=== PATIENT | female | born 1970 ===

== ENCOUNTER 2020-07-28 15:40 | Outpatient (REF) | payer OTHER, SELFPAY | END 2020-07-28 15:41 | disposition home or self-care (01) | LOC: HO.LAB 15:40 | PROVIDERS: PCP Internal Medicine; Visit Provider Internal Medicine | DX: Z20.828 Contact with and (suspected) exposure to other viral communicable diseases (principal) | CPT/HCPCS: 87635 ==

== ENCOUNTER → 2020-08-01 14:07 | Outpatient (BNVA) | payer OTHER, SELFPAY | PROVIDERS: Visit Provider Internal Medicine | DX: B20 Human immunodeficiency virus [HIV] disease (principal) | CPT/HCPCS: 99212 ==

== ENCOUNTER 2020-09-14 16:14 | Outpatient (REF) | payer OTHER, SELFPAY ==
[2020-09-15 17:38] LABS: Absolute CD3 Count 1612 cells/uL (840-3060); Absolute CD4 Count 400 cells/uL (490-1740); Absolute CD8 Count 1214 cells/uL (180-1170); Absolute Lymphocytes 2547 cells/uL (850-3900); CD4 CD8 Ratio 0.33 (0.86-5.00); Percent CD3 Cells 63 % (57-85); Percent CD4 Cells 16 % (30-61); Percent CD8 Cells 48 % (12-42)
[2020-09-18 11:53] LABS: HIV RNA PCR Qn Copies 30 copies/mL (NOT DETECTED); HIV RNA PCR Qn Log Copies 1.48 (NOT DETECTED)
== END 2020-09-14 16:15 | disposition home or self-care (01) ==
LOC: HO.LAB 16:14
PROVIDERS: PCP Internal Medicine; Visit Provider Internal Medicine
DX: B20 Human immunodeficiency virus [HIV] disease (principal)
CPT/HCPCS: 36415; 86359; 86360; 87536

== ENCOUNTER → 2020-09-19 12:12 | Outpatient (BNVA) | payer OTHER, SELFPAY | PROVIDERS: Visit Provider Internal Medicine | DX: Z76.89 Persons encountering health services in other specified circumstances (principal) ==

== ENCOUNTER 2021-02-10 10:27 | Outpatient (REF) | payer OTHER, SELFPAY ==
[2021-02-10 11:11] LABS: MANUAL DIFF FLAG NO
[2021-02-10 11:26] LABS: Basophils Absolute Auto 0.1 X10*3/uL (0.0-0.2); Basophils Percent Auto 0.9 % (0-2); Eosinophils Absolute Auto 0.2 X10*3/uL (0.0-0.4); Eosinophils Percent Auto 2.5 % (0-4); Hematocrit 39.2 % (37-47); Imm Gran Abs Auto 0.01 X10*3/uL (0.00-0.03); Imm Gran Pct Auto 0.1 % (0.0-0.4); Lymphocytes Absolute Auto 1.8 X10*3/uL (1.2-4.9); Lymphocytes Percent Auto 23.3 % (20-40); Mean Corpuscular HGB Conc 33.2 g/dl (31.0-35.0); Mean Corpuscular Volume 90.5 fL (80-98); Mean Platelet Volume 10.1 fL (9.4-12.3); Monocytes Absolute Auto 0.6 X10*3/uL (0.1-1.2); Monocytes Percent Auto 7.3 % (2-11); Neutrophils Absolute Auto 5.2 X10*3/uL (2.0-8.3); Neutrophils Percent Auto 65.9 % (45-73); Platelet Count 302 X10*3/uL (160-400); Red Blood Count 4.33 X10*6/uL (4.20-5.50); Red Cell Distribution Width 13.1 % (11.0-16.0); White Blood Count 7.9 X10*3/uL (4.8-10.8)
[2021-02-10 11:55] LABS: Alanine Aminotransferase 15 U/L (0-31); Albumin Level 4.1 g/dL (3.5-5.0); Alkaline Phosphatase 44 U/L (39-117); Anion Gap 11 (12-20); Aspartate Amino Transferase 17 U/L (5-31); Bilirubin Total 0.3 mg/dL (0.0-1.0); Blood Urea Nitrogen 15 mg/dL (9-16); Calcium 9.4 mg/dL (8.4-10.2); Carbon Dioxide 26 mmol/L (22-29); Chloride 107 mmol/L (96-108); Cholesterol 166 mg/dL; Estimated Glomerular Filt Rate > 60; Glucose Random 99 mg/dL (60-115); HDL Cholesterol 38 mg/dL; LDL Cholesterol Calculated 115 mg/dl; Potassium 4.5 mmol/L (3.3-5.1); Sodium 139 mmol/L (135-145); Total Protein 7.4 g/dL (6.5-8.0); Triglycerides 69 mg/dL
[2021-02-10 11:56] LABS: Alanine Aminotransferase 16 U/L (0-31); Albumin Level 4.1 g/dL (3.5-5.0); Alkaline Phosphatase 44 U/L (39-117); Anion Gap 11 (12-20); Aspartate Amino Transferase 17 U/L (5-31); Bilirubin Direct < 0.2 mg/dL (0.0-0.5); Bilirubin Total 0.3 mg/dL (0.0-1.0); Blood Urea Nitrogen 15 mg/dL (9-16); Calcium 9.3 mg/dL (8.4-10.2); Carbon Dioxide 26 mmol/L (22-29); Chloride 107 mmol/L (96-108); Estimated Glomerular Filt Rate > 60; Glucose Random 99 mg/dL (60-115); Potassium 4.5 mmol/L (3.3-5.1); Sodium 139 mmol/L (135-145); Total Protein 7.3 g/dL (6.5-8.0)
[2021-02-10 11:59] LABS: Free T4 (Free Thyroxine) 0.91 ng/dL (0.71-1.85); Thyroid Stimulating Hormone 1.23 uIU/mL (0.32-4.0); Vitamin D 25-OH Total 8.6 ng/mL (>30)
[2021-02-10 12:02] LABS: ~HepC Num1 0.09 S/CO (0.00-0.79); ~Hepatitis C Antibody Nonreactive (Nonreactive)
[2021-02-10 12:06] LABS: Syphilis Screen Reactive (Nonreactive)
[2021-02-10 12:21] LABS: Vitamin B12 339 pg/mL (200-900)
[2021-02-13 12:22] LABS: Absolute CD3 Count 1096 cells/uL (840-3060); Absolute CD4 Count 307 cells/uL (490-1740); Absolute CD8 Count 805 cells/uL (180-1170); Absolute Lymphocytes 1770 cells/uL (850-3900); CD4 CD8 Ratio 0.38 (0.86-5.00); Percent CD3 Cells 62 % (57-85); Percent CD4 Cells 17 % (30-61); Percent CD8 Cells 46 % (12-42)
[2021-02-14 09:37] LABS: HIV RNA PCR Qn Copies <20 DETECTED copies/mL (NOT DETECTED); HIV RNA PCR Qn Log Copies <1.30 DETECTED (NOT DETECTED)
[2021-02-16 09:02] LABS: RPR Quantitative Non-Reactive (Nonreactive); T.Pallidum Particle Agg Test Reactive (Nonreactive)
== END 2021-02-10 10:28 | disposition home or self-care (01) ==
LOC: HO.LAB 10:27
PROVIDERS: Absent Provider Internal Medicine; PCP Internal Medicine; Visit Provider Internal Medicine
DX: Z21 Asymptomatic human immunodeficiency virus [HIV] infection status (principal); K21.9 Gastro-esophageal reflux disease without esophagitis; E78.00 Pure hypercholesterolemia, unspecified
CPT/HCPCS: 36415; 80048; 80053; 80061; 80076; 82248; 82306; 82607; 82746; 84439; 84443; 85025; 86359; 86360; 86592; 86780; 86803; 87536

== ENCOUNTER 2021-03-06 15:32 | Outpatient (REF) | payer OTHER, SELFPAY ==
[2021-03-06 16:56] LABS: MANUAL DIFF FLAG NO
[2021-03-06 17:03] LABS: Basophils Absolute Auto 0.1 X10*3/uL (0.0-0.2); Basophils Percent Auto 0.8 % (0-2); Eosinophils Absolute Auto 0.2 X10*3/uL (0.0-0.4); Eosinophils Percent Auto 3.1 % (0-4); Hematocrit 39.8 % (37-47); Hemoglobin 13.1 g/dl (12.0-16.0); Imm Gran Abs Auto 0.01 X10*3/uL (0.00-0.03); Imm Gran Pct Auto 0.2 % (0.0-0.4); Lymphocytes Absolute Auto 1.7 X10*3/uL (1.2-4.9); Lymphocytes Percent Auto 27.5 % (20-40); Mean Corpuscular HGB Conc 32.9 g/dl (31.0-35.0); Mean Corpuscular Hemoglobin 29.4 pg (27.0-33.0); Mean Corpuscular Volume 89.2 fL (80-98); Mean Platelet Volume 10.4 fL (9.4-12.3); Monocytes Absolute Auto 0.6 X10*3/uL (0.1-1.2); Neutrophils Absolute Auto 3.7 X10*3/uL (2.0-8.3); Neutrophils Percent Auto 59.4 % (45-73); Platelet Count 328 X10*3/uL (160-400); Red Blood Count 4.46 X10*6/uL (4.20-5.50); Red Cell Distribution Width 13.2 % (11.0-16.0); White Blood Count 6.2 X10*3/uL (4.8-10.8)
[2021-03-07 14:47] LABS: HIV RNA PCR Qn Copies <20 NOT DETECTED copies/mL (NOT DETECTED); HIV RNA PCR Qn Log Copies <1.30 NOT DETECTED (NOT DETECTED)
[2021-03-08 15:16] LABS: Absolute CD3 Count 1196 cells/uL (840-3060); Absolute CD4 Count 380 cells/uL (490-1740); Absolute CD8 Count 820 cells/uL (180-1170); Absolute Lymphocytes 1787 cells/uL (850-3900); CD4 CD8 Ratio 0.46 (0.86-5.00); Percent CD3 Cells 67 % (57-85); Percent CD4 Cells 21 % (30-61); Percent CD8 Cells 46 % (12-42)
== END 2021-03-06 15:33 | disposition home or self-care (01) ==
LOC: HO.LAB 15:32
PROVIDERS: PCP Internal Medicine; Visit Provider Internal Medicine
DX: Z21 Asymptomatic human immunodeficiency virus [HIV] infection status (principal); K21.9 Gastro-esophageal reflux disease without esophagitis
CPT/HCPCS: 36415; 85025; 86359; 86360; 87536

== ENCOUNTER → 2021-03-10 10:48 | Outpatient (BNVA) | payer OTHER, SELFPAY | PROVIDERS: Visit Provider Internal Medicine | DX: Z21 Asymptomatic human immunodeficiency virus [HIV] infection status (principal) | CPT/HCPCS: 99212 ==

== ENCOUNTER 2021-05-26 15:43 | Outpatient (REF) | payer OTHER, SELFPAY ==
--- NOTE | ~2021-05-26 | MM_ITS ---
EXAMINATION: MM SCREENING DIGITAL BREAST TOMOSYNTHESIS, BILATERAL CLINICAL INFORMATION: Screening. Asymptomatic. The lifetime risk of breast cancer based on the Tyrer-Cuzick Model is 7%. COMPARISON: Mammography: 03/17/2020, 10/14/2018, 09/17/2017, 07/20/2016; targeted right breast ultrasound 03/25/2020. TECHNIQUE: Digital breast tomosynthesis is performed in both the craniocaudal and mediolateral oblique views along with computer-aided detection (CAD). Synthesized 2D images are generated from the tomosynthesis. FINDINGS: There are scattered areas of fibroglandular density (ACR BI-RADS breast composition Category b). There are no significant masses, abnormal calcifications, or other abnormalities. There are scattered small benign-appearing circumscribed waxing and waning nodularity, 3 are decreased in size in the outer right breast and previously noted to represent intramammary nodes on targeted right ultrasound. There is no dominant nodule. The axilla and skin contours are unremarkable. Left breast again shows biopsy clip marker mid upper outer quadrant. MM/MM tomosynthesis screening BI IMPRESSION: No significant changes from prior studies. ASSESSMENT: BI-RADS 2: Benign RECOMMENDATION: Routine annual mammography screening. This patient's information was entered into a reminder system with a target due date for their next mammogram.
== END 2021-05-26 15:44 | disposition home or self-care (01) ==
LOC: HO.MAMMO 15:43
PROVIDERS: Visit Provider Internal Medicine
DX: Z12.31 Encounter for screening mammogram for malignant neoplasm of breast (principal)
CPT/HCPCS: 77063; 77067

== ENCOUNTER 2021-09-08 16:21 | Outpatient (REF) | payer OTHER, SELFPAY ==
--- NOTE | ~2021-09-08 | XR_ITS ---
EXAMINATION: XR CHEST CLINICAL INFORMATION: Asthma with acute exacerbation. COMPARISON: 11/13/2019 TECHNIQUE: 2 views of the chest were obtained. FINDINGS: No acute finding. No infiltrate. The lung kline are grossly clear. The cardiac silhouette is felt to be within normal limits. There is no effusion. The hilar regions are felt to be comparable. XR/XR chest 2V IMPRESSION: No acute finding.
== END 2021-09-08 16:22 | disposition home or self-care (01) ==
LOC: HO.XRAY 16:21
PROVIDERS: Visit Provider Internal Medicine
DX: J45.901 Unspecified asthma with (acute) exacerbation (principal)
CPT/HCPCS: 71046

== ENCOUNTER 2021-10-04 14:48 | Outpatient (REF) | payer OTHER, SELFPAY ==
[2021-10-04 16:19] LABS: Syphilis Screen Reactive (Nonreactive)
[2021-10-05 05:34] LABS: ~HepC Num1 0.12 S/CO (0.00-0.79); ~Hepatitis C Antibody Nonreactive (Nonreactive)
[2021-10-05 11:26] LABS: Absolute CD3 Count 1269 cells/uL (840-3060); Absolute CD4 Count 409 cells/uL (490-1740); Absolute CD8 Count 895 cells/uL (180-1170); Absolute Lymphocytes 2422 cells/uL (850-3900); CD4 CD8 Ratio 0.46 (0.86-5.00); Percent CD3 Cells 52 % (57-85); Percent CD4 Cells 17 % (30-61); Percent CD8 Cells 37 % (12-42)
[2021-10-11 07:41] LABS: HIV RNA PCR Qn Copies 25 copies/mL (NOT DETECTED)
[2021-10-12 11:57] LABS: T.Pallidum Particle Agg Test Reactive (Nonreactive)
[2021-12-13 10:00] LABS: RPR Quantitative Non-Reactive (Nonreactive)
== END 2021-10-04 14:49 | disposition home or self-care (01) ==
LOC: HO.LAB 14:48
PROVIDERS: PCP Internal Medicine; Visit Provider Internal Medicine
DX: Z21 Asymptomatic human immunodeficiency virus [HIV] infection status (principal); A53.9 Syphilis, unspecified
CPT/HCPCS: 36415; 86359; 86360; 86592; 86780; 86803; 87536

== ENCOUNTER → 2021-10-27 11:42 | Outpatient (BNVA) | payer OTHER, SELFPAY | PROVIDERS: Visit Provider Internal Medicine | DX: Z21 Asymptomatic human immunodeficiency virus [HIV] infection status (principal) | CPT/HCPCS: 99212 ==

== ENCOUNTER → 2021-12-26 13:34 | Outpatient (BNVA) | payer OTHER, SELFPAY | PROVIDERS: Visit Provider Obstetrics & Gynecology | DX: Z13.89 Encounter for screening for other disorder (principal) ==

== ENCOUNTER 2022-05-01 08:17 | Outpatient (REF) | payer OTHER, SELFPAY ==
[2022-05-02 13:16] LABS: HIV RNA PCR Qn Copies <20 DETECTED copies/mL (NOT DETECTED); HIV RNA PCR Qn Log Copies <1.30 DETECTED (NOT DETECTED)
[2022-05-02 15:42] LABS: Absolute CD3 Count 1102 cells/uL (840-3060); Absolute CD4 Count 427 cells/uL (490-1740); Absolute CD8 Count 697 cells/uL (180-1170); Absolute Lymphocytes 1827 cells/uL (850-3900); CD4 CD8 Ratio 0.61 (0.86-5.00); Percent CD3 Cells 60 % (57-85); Percent CD4 Cells 23 % (30-61); Percent CD8 Cells 38 % (12-42)
== END 2022-05-01 08:18 | disposition home or self-care (01) ==
LOC: HO.LAB 08:17
PROVIDERS: PCP Internal Medicine; Visit Provider Internal Medicine
DX: B20 Human immunodeficiency virus [HIV] disease (principal)
CPT/HCPCS: 36415; 86359; 86360; 87536

== ENCOUNTER 2022-05-28 13:32 | Outpatient (REF) | payer OTHER, SELFPAY ==
--- NOTE | ~2022-05-28 | MM_ITS ---
EXAMINATION: MM SCREENING DIGITAL BREAST TOMOSYNTHESIS, BILATERAL CLINICAL INFORMATION: Screening. Asymptomatic. The lifetime risk of breast cancer based on the Tyrer-Cuzick Model is 7%. COMPARISON: Mammography: 05/26/2021, 03/17/2020, 10/14/2018, ultrasound right breast 03/25/2020. TECHNIQUE: Digital breast tomosynthesis is performed in both the craniocaudal and mediolateral oblique views along with computer-aided detection (CAD). Synthesized 2D images are generated from the tomosynthesis. FINDINGS: There are scattered areas of fibroglandular density (ACR BI-RADS breast composition Category b). There is no significant mass, architectural abnormality, or abnormal calcifications. Scattered minor smooth nodularity is again noted, several on right related to intramammary nodes on ultrasound. There is a biopsy clip marker again seen left breast mid upper outer quadrant. The axilla and skin contours are unremarkable. There are no significant changes. MM/MM tomosynthesis screening BI IMPRESSION: No significant changes from prior exams. ASSESSMENT: BI-RADS 2: Benign RECOMMENDATION: Routine annual mammography screening. This patient's information was entered into a reminder system with a target due date for their next mammogram.
== END 2022-05-28 13:33 | disposition home or self-care (01) ==
LOC: HO.MAMMO 13:32
PROVIDERS: PCP Internal Medicine; Visit Provider Obstetrics & Gynecology
DX: Z12.31 Encounter for screening mammogram for malignant neoplasm of breast (principal)
CPT/HCPCS: 77063; 77067

== ENCOUNTER → 2022-07-16 14:52 | Outpatient (BNVA) | payer OTHER, SELFPAY | PROVIDERS: PCP Internal Medicine; Visit Provider Physician Assistant | DX: Z01.818 Encounter for other preprocedural examination (principal); J45.909 Unspecified asthma, uncomplicated; K21.9 Gastro-esophageal reflux disease without esophagitis | CPT/HCPCS: 99202 ==

== ENCOUNTER 2022-10-12 14:35 | Outpatient (REF) | payer OTHER, SELFPAY ==
[2022-10-15 04:41] LABS: ~HepC Num1 0.11 S/CO (0.00-0.79); ~Hepatitis C Antibody Nonreactive (Nonreactive)
[2022-10-15 04:49] LABS: Syphilis Screen Reactive (Nonreactive)
[2022-10-15 11:38] LABS: Absolute CD3 Count 1381 cells/uL (840-3060); Absolute CD4 Count 578 cells/uL (490-1740); Absolute CD8 Count 847 cells/uL (180-1170); Absolute Lymphocytes 2118 cells/uL (850-3900); CD4 CD8 Ratio 0.68 (0.86-5.00); Percent CD3 Cells 65 % (57-85); Percent CD4 Cells 27 % (30-61); Percent CD8 Cells 40 % (12-42)
[2022-10-17 14:13] LABS: HIV RNA PCR Qn Copies <20 DETECTED copies/mL (NOT DETECTED); HIV RNA PCR Qn Log Copies <1.30 DETECTED (NOT DETECTED)
[2022-10-21 14:44] LABS: RPR Quantitative Non-Reactive (Nonreactive); T.Pallidum Particle Agg Test Reactive (Nonreactive)
== END 2022-10-12 14:36 | disposition home or self-care (01) ==
LOC: HO.LAB 14:35
PROVIDERS: PCP Internal Medicine; Visit Provider Internal Medicine
DX: B20 Human immunodeficiency virus [HIV] disease (principal)
CPT/HCPCS: 36415; 86359; 86360; 86592; 86780; 86803; 87536

== ENCOUNTER → 2022-10-19 11:41 | Outpatient (BNVA) | payer OTHER, SELFPAY | PROVIDERS: PCP Internal Medicine; Visit Provider Internal Medicine | DX: Z21 Asymptomatic human immunodeficiency virus [HIV] infection status (principal); Z79.899 Other long term (current) drug therapy | CPT/HCPCS: 99212 ==

== ENCOUNTER 2023-04-24 09:17 | Outpatient (REF) | payer OTHER, SELFPAY ==
[2023-04-24 09:37] LABS: MANUAL DIFF FLAG NO
[2023-04-24 10:20] LABS: Basophils Absolute Auto 0.1 X10*3/uL (0.0-0.2); Basophils Percent Auto 1.2 % (0-2); Eosinophils Absolute Auto 0.1 X10*3/uL (0.0-0.4); Hematocrit 40.6 % (37.0-47.0); Hemoglobin 13.5 g/dl (12.0-16.0); Imm Gran Abs Auto 0.02 X10*3/uL (0.00-0.03); Imm Gran Pct Auto 0.3 % (0.0-0.4); Lymphocytes Absolute Auto 2.3 X10*3/uL (1.2-4.9); Lymphocytes Percent Auto 34.3 % (20-40); Mean Corpuscular HGB Conc 33.3 g/dl (31.0-35.0); Mean Corpuscular Hemoglobin 30.3 pg (27.0-33.0); Monocytes Absolute Auto 0.6 X10*3/uL (0.1-1.2); Monocytes Percent Auto 8.6 % (2-11); Neutrophils Absolute Auto 3.5 x10*3/uL (2.0-8.3); Neutrophils Percent Auto 53.6 % (45-73); Platelet Count 310 X10*3/uL (160-400); Red Blood Count 4.46 X10*6/uL (4.20-5.50); Red Cell Distribution Width 13.1 % (11.0-16.0); White Blood Count 6.6 X10*3/uL (4.8-10.8)
[2023-04-24 11:25] LABS: Syphilis Screen Reactive (Nonreactive)
[2023-04-24 11:28] LABS: Alanine Aminotransferase 15 U/L (0-31); Albumin Level 3.9 g/dL (3.5-5.0); Alkaline Phosphatase 48 U/L (39-117); Anion Gap 9 (12-20); Aspartate Amino Transferase 17 U/L (5-31); Bilirubin Direct 0.1 mg/dL (0.0-0.5); Bilirubin Total 0.4 mg/dL (0.0-1.0); Blood Urea Nitrogen 12 mg/dL (9-16); Carbon Dioxide 26 mmol/L (22-29); Chloride 108 mmol/L (96-108); Estimated Glomerular Filt Rate > 60; Glucose Random 97 mg/dL (60-115); Potassium 4.1 mmol/L (3.3-5.1); Sodium 139 mmol/L (135-145); Total Protein 7.1 g/dL (6.5-8.0)
[2023-04-26 10:44] LABS: Absolute CD3 Count 1380 cells/uL (840-3060); Absolute CD4 Count 565 cells/uL (490-1740); Absolute CD8 Count 839 cells/uL (180-1170); Absolute Lymphocytes 2300 cells/uL (850-3900); CD4 CD8 Ratio 0.67 (0.86-5.00); Percent CD3 Cells 60 % (57-85); Percent CD4 Cells 25 % (30-61); Percent CD8 Cells 36 % (12-42)
[2023-04-26 16:33] LABS: HIV RNA PCR Qn Copies 23 copies/mL (NOT DETECTED); HIV RNA PCR Qn Log Copies 1.36 (NOT DETECTED)
[2023-05-06 10:58] LABS: RPR Quantitative Non-Reactive (Nonreactive); T.Pallidum Particle Agg Test Non-Reactive (Nonreactive)
== END 2023-04-24 09:18 | disposition home or self-care (01) ==
LOC: HO.LAB 09:17
PROVIDERS: PCP Internal Medicine; Visit Provider Internal Medicine
DX: B20 Human immunodeficiency virus [HIV] disease (principal)
CPT/HCPCS: 36415; 80048; 80076; 85025; 86359; 86360; 86592; 86780; 87536

== ENCOUNTER 2023-05-13 11:37 | Outpatient (AMB) | payer OTHER, SELFPAY ==
[2023-05-13 11:51] VITALS: BP 110/70; PULSE 80; BMI 34.7
--- NOTE | 2023-05-13 11:51 | A.OFFVIS_ITS ---
Intake Vital Signs 05/13/23 11:51 Height 5 ft 3 in Weight 196 lb BMI 34.7 BP 110/70 Pulse 80 Pulse Source Pulse Oximeter Intake Visit Reasons: follow up HIV labs Groundwater Monitoring Technician Required: Yes Groundwater Monitoring Technician Name: Mary Grimes CMA Allergies No Known Allergies Allergy (Verified 05/13/23 11:52) HPI follow up HIV labs HPI Details She is doing well. She has CD4 count of 565 and viral load 23. She has no complaints. [facility] Medical History Anxiety and depression Asthma Atypical ductal hyperplasia, breast GENNA I (cervical intraepithelial neoplasia I) GERD (gastroesophageal reflux disease) HIV (human immunodeficiency virus infection) Insomnia Migraine Obesity (BMI 30-39.9) Overweight (BMI 25.0-29.9) Tobacco abuse Surgical History H/O LEEP History of breast lump/mass excision History of breast surgery History of laparoscopic cholecystectomy History of tubal ligation History of umbilical hernia repair Family History Father No problems noted. Mother No problems noted. Paternal Grandmother CVD (cardiovascular disease) Maternal Uncle Mouth cancer Maternal Grandmother Myocardial infarction CVD (cardiovascular disease) Gastric cancer Social History Housing: Apartment Alcohol intake: current Alcohol intake frequency: 3 or more drinks per day Alcohol type: beer, wine and hard liquor Patient Tobacco Use Status: Current everyday Tobacco user Tobacco use type: Cigarette Cigarettes Per Day: 10 e-Cigarette/Vaping Use: Never Used Second Hand Smoke Exposure: Yes service: No Current occupational status: unemployed Cognitive needs: No Hearing needs: No Vision needs: Yes Female Reproductive History Menstrual Age of Menarche: 13 Review of Systems Const All systems reviewed & are unremarkable except as noted in HPI and below Physical Exam Vital Signs: Last Vital Signs Pulse 80 05/13/23 11:51 BP 110/70 05/13/23 11:51 BMI result Body Mass Index 34.7 Const General: cooperative Orientation/consciousness: patient oriented x3 HEENT Head: Yes normal to inspection Mouth: Normal oral and palatal mucosa present Eyes General: appearance normal, both eyes and all related structures Pupils: Equal, round and reactive pupils present Resp Effort & Inspection: normal respiratory effort Cardio Rate: regular rate Rhythm: regular rhythm GI Palpation (GI): Soft to palpation and nontender General: Yes no CVA tenderness Back/Spine/Pelvis Back: no CVA tenderness Skin General skin exam: no rashes or lesions noted Neuro General: patient oriented x3 Cranial nerves: Yes CN's II-XII intact bilaterally and Yes Equal, round and reactive pupils present Extrem General: Yes normal to inspection Psych Appearance: grossly normal Assessment & Plan Assessment & Plan (1) HIV (human immunodeficiency virus infection): Comment: She has been doing well She has no complaints She is taking Biktarvy and is up to date with health care she says Her CD4 count and viral load are appropriate Code(s): B20 - Human immunodeficiency virus [HIV] disease Qualifiers: HIV symptom status: asymptomatic, with no history of HIV-related illness Qualified Code(s): Z21 - Asymptomatic human immunodeficiency virus [HIV] infection status Plan Check CD4 count and viral load and see in six months Orders: Orders HIV-1 RNA QN PCR Expanded 6 Weeks B20 - Human immunodeficiency virus [HIV] disease Medications: Changed From xhvylhmss-akkzhhpe-abkdqcq ala 50-200-25 mg (Biktarvy) 1 tab PO DAILY 90 days 90 tabs 3RF To qrkvkyxvb-wcrnnhla-ozvvdso ala 50-200-25 mg (Biktarvy) 1 tab PO DAILY 30 tabs 5RF 30 days Coding Level of Care Code Est Pt Level 3 (51559) Diagnoses HIV (human immunodeficiency virus infection) Z21 HIV symptom status: asymptomatic, with no history of HIV-related illness
== END 2023-05-13 12:26 | disposition home or self-care (01) ==
LOC: HO.HID 11:37
PROVIDERS: PCP Internal Medicine; Visit Provider Internal Medicine
DX: Z21 Asymptomatic human immunodeficiency virus [HIV] infection status (principal)
CPT/HCPCS: 99213

== ENCOUNTER → 2023-05-13 11:37 | Outpatient (BNVA) | payer OTHER, SELFPAY | PROVIDERS: PCP Internal Medicine; Visit Provider Internal Medicine | DX: B20 Human immunodeficiency virus [HIV] disease (principal) | CPT/HCPCS: 99212 ==

== ENCOUNTER 2023-05-30 13:14 | Outpatient (REF) | payer OTHER, SELFPAY ==
--- NOTE | ~2023-05-30 | MM_ITS ---
EXAMINATION: MM SCREENING DIGITAL BREAST TOMOSYNTHESIS, BILATERAL CLINICAL INFORMATION: Screening. Asymptomatic. COMPARISON: Mammography: This study is compared with prior exams dating back to 2017. TECHNIQUE: Digital breast tomosynthesis is performed in both the craniocaudal and mediolateral oblique views along with computer-aided detection (CAD). Synthesized 2D images are generated from the tomosynthesis. FINDINGS: There are scattered areas of fibroglandular density (ACR BI-RADS breast composition Category b). There are no significant masses, abnormal calcifications, or other abnormalities. There is a tissue marker in the superior aspect of the left breast from prior benign percutaneous biopsy. It lies in proximity to few, benign calcifications. MM/MM tomosynthesis screening BI IMPRESSION: No mammographic evidence of malignancy. ASSESSMENT: BI-RADS BI-RADS 2 - Benign Findings RECOMMENDATION: Routine annual mammography screening. 1 year F/U This examination should not preclude the clinical evaluation of a suspicious palpable abnormality. This patient's information was entered into a reminder system with a target due date for their next mammogram.
== END 2023-05-30 13:15 | disposition home or self-care (01) ==
LOC: HO.MAMMO 13:14
PROVIDERS: PCP Internal Medicine; Visit Provider Internal Medicine
DX: Z12.31 Encounter for screening mammogram for malignant neoplasm of breast (principal)
CPT/HCPCS: 77063; 77067

== ENCOUNTER → 2023-05-30 13:30 | Outpatient (BNV) | payer OTHER, SELFPAY | PROVIDERS: PCP Internal Medicine; Visit Provider Radiology Diagnostic Radiology | DX: Z12.31 Encounter for screening mammogram for malignant neoplasm of breast (principal) | CPT/HCPCS: 77063; 77067 ==

== ENCOUNTER 2023-06-04 11:24 | Outpatient (AMB) | payer OTHER, SELFPAY ==
--- NOTE | 2023-06-04 11:31 | A.OFFVIS_ITS ---
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 No complaints. Last Pap/HPV was negative in 10/17 Last Mammogram was in 05/30/23, results are still pending No previous screening Colonoscopy done, the patient was referred last year was seen for a consult and is in the process of scheduling her colonoscopy [facility] Medical History Anxiety and depression Asthma Atypical ductal hyperplasia, breast GENNA I (cervical intraepithelial neoplasia I) GERD (gastroesophageal reflux disease) HIV (human immunodeficiency virus infection) Insomnia Migraine Obesity (BMI 30-39.9) Overweight (BMI 25.0-29.9) Tobacco abuse Surgical History H/O LEEP History of breast lump/mass excision History of breast surgery History of laparoscopic cholecystectomy History of tubal ligation History of umbilical hernia repair Family History Father No problems noted. Mother No problems noted. Paternal Grandmother CVD (cardiovascular disease) Maternal Uncle Mouth cancer Maternal Grandmother Myocardial infarction CVD (cardiovascular disease) Gastric cancer Social History Housing: Apartment Alcohol intake: current Alcohol intake frequency: 3 or more drinks per day Alcohol type: beer, wine and hard liquor Patient Tobacco Use Status: Current everyday Tobacco user Tobacco use type: Cigarette Cigarettes Per Day: 10 e-Cigarette/Vaping Use: Never Used Second Hand Smoke Exposure: Yes service: No Current occupational status: unemployed Sexually active: Yes Sexual orientation: Straight/Heterosexual Gender identity: Female Cognitive needs: No Hearing needs: No Vision needs: Yes Female Reproductive History Menstrual Age of Menarche: 13 control method: permanent sterilization Total pregnancies: 4 Full term: 3 Number of Living Children: 3 Ab spontaneous: 1 Date of last pap smear: 10/15/17 Date of Mammogram: 05/30/23 Review of Systems Const All systems reviewed & are unremarkable except as noted in HPI and below Card Reports as per HPI Resp Reports as per HPI GI Reports as per HPI and Reports no additional complaints Reports as per HPI Physical Exam Vital Signs: Last Vital Signs BP 116/70 06/04/23 11:34 BMI result Body Mass Index 33.7 Const General: cooperative, healthy appearing and comfortable Chest Chest palpation & inspection: normal inspection of the chest and normal palpation of entire chest wall Breast/axilla inspection: normal inspection of the breasts and normal inspection of the axillae Breast/axilla palpation: normal palpation of the breasts, normal palpation of the axillae and no axillary lymphadenopathy Resp Effort & Inspection: normal respiratory effort Auscultation: clear to auscultation bilaterally Percussion: percussion normal Cardio Palpation: normal PMI Rate: regular rate Rhythm: regular rhythm Heart sounds: no murmurs and no rubs Peripheral pulses: Peripheral pulses 2+ throughout GI Inspection: Yes normal to inspection Palpation (GI): Soft to palpation, nontender, no guarding, not rigid and No hepatosplenomegaly present Percussion: Yes normal to percussion Auscultation: normal bowel sounds Rectal Exam - Female: deferred General: Yes bladder normal to palpation External Female Exam: No lesion Speculum Exam - Vagina: normal appearance of the vagina, normal palpation, normal vaginal discharge and not erythematous Speculum Exam - Cervix: normal appearance of the cervix and normal palpation Bimanual exam- vagina & uterus: normal bimanual exam, normal palpation, uterine size normal, bladder normal to palpation, consistency normal and normal palpation Bimanual Exam- Adnexa, other: normal adnexae, no masses and no tenderness Assessment & Plan Assessment & Plan (1) Well woman exam: Code(s): Z01.419 - Encounter for gynecological examination (general) (routine) without abnormal findings Plan: Co testing done. Counseled the patient about the recommended dietary allowance of 1200 mg of Calcium & 600 IU of vitamin D. Instructions given the patient to schedule next screening mammogram in 05/23 , the patient was referred to GI and is in the process of scheduling screening colonoscopy . The patient was instructed to perform monthly self-breast exams and schedule annual exam in a year; all questions answered and the patient verbalized understanding. Coding Level of Care Code Est Pt Prev Care 40-64y(91821) Diagnoses Well woman exam Z01.419
[2023-06-04 11:34] VITALS: BP 116/70; BMI 33.7
== END 2023-06-04 12:14 | disposition home or self-care (01) ==
PROVIDERS: Visit Provider Obstetrics & Gynecology
DX: Z01.419 Encounter for gynecological examination (general) (routine) without abnormal findings (principal)
CPT/HCPCS: 99396

== ENCOUNTER 2023-06-04 11:24 | Outpatient (REF) | payer OTHER, SELFPAY ==
[2023-06-08 12:49] LABS: HPV mRNA E6/E7 rflx Not Detected (Not Detected)
== END 2023-06-04 11:25 | disposition home or self-care (01) ==
LOC: HO.LNP 11:24
PROVIDERS: Visit Provider Obstetrics & Gynecology
DX: Z01.419 Encounter for gynecological examination (general) (routine) without abnormal findings (principal); Z11.51 Encounter for screening for human papillomavirus (HPV)
CPT/HCPCS: 87624; 88142

== ENCOUNTER 2023-06-26 08:11 | Outpatient (REF) | payer OTHER, SELFPAY ==
[2023-06-27 15:43] LABS: HIV RNA PCR Qn Copies <20 DETECTED copies/mL (NOT DETECTED); HIV RNA PCR Qn Log Copies <1.30 DETECTED (NOT DETECTED)
== END 2023-06-26 08:12 | disposition home or self-care (01) ==
LOC: HO.LAB 08:11
PROVIDERS: PCP Internal Medicine; Visit Provider Internal Medicine
DX: B20 Human immunodeficiency virus [HIV] disease (principal)
CPT/HCPCS: 36415; 87536

== ENCOUNTER 2023-07-05 11:50 | Outpatient (AMB) | payer OTHER, SELFPAY ==
[2023-07-05 11:48] VITALS: BP 125/87; PULSE 96; O2SAT 98; BMI 35.1
--- NOTE | 2023-07-05 11:48 | MHC.OFFVIS ---
Intake Vital Signs 07/05/23 11:48 Height 5 ft 3 in Weight 198 lb BMI 35.1 BP 125/87 Blood Pressure Location Lt brachial Position Sitting Pulse 96 Pulse Oximetry (%) 98 Intake Visit Reasons: follow ,lab Stone Chimney Mason Required: Yes Stone Chimney Mason Name: Mary Grimes CMA Allergies No Known Allergies Allergy (Verified 07/05/23 12:20) HPI follow ,lab HPI Details Her CD4 count is 565 and viral load undetectable on 04/24. She has no concerns. She reports UTD with HCM. [facility] Medical History Obesity (BMI 30-39.9) GENNA I (cervical intraepithelial neoplasia I) Overweight (BMI 25.0-29.9) Tobacco abuse Insomnia GERD (gastroesophageal reflux disease) Anxiety and depression Atypical ductal hyperplasia, breast Asthma Migraine HIV (human immunodeficiency virus infection) Surgical History History of laparoscopic cholecystectomy History of breast lump/mass excision History of breast surgery H/O LEEP History of tubal ligation History of umbilical hernia repair Family History Father No problems noted. Mother No problems noted. Paternal Grandmother CVD (cardiovascular disease) Maternal Uncle Mouth cancer Maternal Grandmother Myocardial infarction CVD (cardiovascular disease) Gastric cancer Social History Housing: Apartment Alcohol intake: current Alcohol intake frequency: 3 or more drinks per day Alcohol type: beer, wine and hard liquor Patient Tobacco Use Status: Current everyday Tobacco user Tobacco use type: Cigarette Cigarettes Per Day: 10 e-Cigarette/Vaping Use: Never Used Second Hand Smoke Exposure: Yes service: No Current occupational status: unemployed Sexual orientation: Straight/Heterosexual Gender identity: Female Cognitive needs: No Hearing needs: No Vision needs: Yes Female Reproductive History Menstrual Age of Menarche: 13 Review of Systems Const All systems reviewed & are unremarkable except as noted in HPI and below Physical Exam Vital Signs: Last Vital Signs Pulse 96 07/05/23 11:48 BP 125/87 07/05/23 11:48 Pulse Ox 98 07/05/23 11:48 BMI result Body Mass Index 35.1 Const General: cooperative Orientation/consciousness: patient oriented x3 HEENT Head: Yes normal to inspection Mouth: Normal oral and palatal mucosa present Eyes General: appearance normal, both eyes and all related structures Pupils: Equal, round and reactive pupils present Resp Effort & Inspection: normal respiratory effort Cardio Rate: regular rate Rhythm: regular rhythm GI Palpation (GI): Soft to palpation and nontender General: Yes no CVA tenderness Back/Spine/Pelvis Back: no CVA tenderness Skin General skin exam: no rashes or lesions noted Neuro General: patient oriented x3 Cranial nerves: Yes CN's II-XII intact bilaterally and Yes Equal, round and reactive pupils present Extrem General: Yes normal to inspection Psych Appearance: grossly normal Assessment & Plan Assessment & Plan (1) HIV (human immunodeficiency virus infection): Comment: She has been doing well She has no complaints She is taking Biktarvy and is up to date with health care she says Her CD4 count and viral load are appropriate Code(s): B20 - Human immunodeficiency virus [HIV] disease Qualifiers: HIV symptom status: asymptomatic, with no history of HIV-related illness Qualified Code(s): Z21 - Asymptomatic human immunodeficiency virus [HIV] infection status Plan See in six months Check labs before. I ordered labs today for six months and six month refill Biktarvy ordered today. Orders: Orders Liver Panel 6 Months B20 - Human immunodeficiency virus [HIV] disease HIV-1 RNA QN PCR Expanded 6 Months B20 - Human immunodeficiency virus [HIV] disease, R09.81 - Nasal congestion Complete Blood Count Auto Diff Today B20 - Human immunodeficiency virus [HIV] disease Basic Metabolic Panel 6 Months B20 - Human immunodeficiency virus [HIV] disease Lymphocyte Subset Panel 3 6 Months B20 - Human immunodeficiency virus [HIV] disease Syphilis Screen 6 Months B20 - Human immunodeficiency virus [HIV] disease Medications: Refilled nmdlvoagd-phmqrlwe-kyxkjkv ala 50-200-25 mg (Biktarvy) 1 tab PO DAILY 30 tabs 5RF 30 days Coding Level of Care Code Est Pt Level 3 (63288) Diagnoses Asymptomatic HIV infection, with no history of HIV-related illness Z21 HIV symptom status: asymptomatic, with no history of HIV-related illness
== END 2023-07-05 12:21 | disposition home or self-care (01) ==
PROVIDERS: PCP Internal Medicine; Visit Provider Internal Medicine
DX: Z21 Asymptomatic human immunodeficiency virus [HIV] infection status (principal)
CPT/HCPCS: 99213

== ENCOUNTER → 2023-07-05 11:50 | Outpatient (BNVA) | payer OTHER, SELFPAY | PROVIDERS: PCP Internal Medicine; Visit Provider Internal Medicine | DX: Z21 Asymptomatic human immunodeficiency virus [HIV] infection status (principal) | CPT/HCPCS: 99212 ==

== ENCOUNTER 2023-08-08 06:37 | Day surgery (SDC) | payer OTHER, SELFPAY ==
[2023-08-06 12:02] VITALS: BMI 35.1
--- NOTE | 2023-08-07 11:55 | HO.ANESPROP2 ---
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 (Acute) Bile salt-induced diarrhea (Acute) Facial dermatitis (Acute) Alcohol abuse (Acute) Annual physical exam (Acute) Asthma (Acute) Obesity (BMI 30-39.9) (Acute) Overweight (BMI 25.0-29.9) (Acute) Tobacco abuse (Acute) GERD (gastroesophageal reflux disease) (Acute) HIV (human immunodeficiency virus infection) (Acute) Past Medical History Medical History HIV (human immunodeficiency virus infection) Obesity (BMI 30-39.9) GENNA I (cervical intraepithelial neoplasia I) Overweight (BMI 25.0-29.9) Tobacco abuse Insomnia GERD (gastroesophageal reflux disease) Anxiety and depression Atypical ductal hyperplasia, breast Asthma Migraine Family History Family History Father No problems noted. Mother No problems noted. Paternal Grandmother CVD (cardiovascular disease) Maternal Uncle Mouth cancer Maternal Grandmother Myocardial infarction CVD (cardiovascular disease) Gastric cancer Surgical History Surgical History History of laparoscopic cholecystectomy History of breast lump/mass excision History of breast surgery H/O LEEP History of tubal ligation History of umbilical hernia repair HIV (human immunodeficiency virus infection) Social History Social History Housing: Apartment Alcohol intake: current Alcohol intake frequency: holidays/special occasions only Alcohol type: beer, wine and hard liquor Patient Tobacco Use Status: Current everyday Tobacco user Tobacco use type: Cigarette Cigarettes Per Day: 10 e-Cigarette/Vaping Use: Never Used Second Hand Smoke Exposure: Yes Are you DNR?: No Advance Directives: No Advance Directives Information Provided: Yes Nutrition Risks: No Nutritional Risk Patient : No service: No Current occupational status: unemployed Sexual orientation: Straight/Heterosexual Gender identity: Female Cognitive needs: No Hearing needs: No Vision needs: Yes Meds Allergies Allergy/AdvReac Type Severity Reaction Status Date / Time No Known Allergies Allergy Verified 07/05/23 12:20 Exam Exam Date and Time: August 07, 2023 1155 Height,Weight and Vital Signs: Height 5 ft 3 in Weight 89.811 kg Pertinent Lab Results Pertinent Lab Results: Laboratory Tests 04/24/23 09:33 WBC 6.6 Hgb 13.5 Hct 40.6 Plt Count 310 Sodium 139 Potassium 4.1 Chloride 108 Carbon Dioxide 26 BUN 12 Creatinine 0.73 Assessment and Plan Assessment Anesthesia Assessment: Chart Reviewed Documented by User: Kelsey Green MD 08/08/23 07:52 PMFSH Past Medical History Medical History HIV (human immunodeficiency virus infection) Obesity (BMI 30-39.9) GENNA I (cervical intraepithelial neoplasia I) Overweight (BMI 25.0-29.9) Tobacco abuse Insomnia GERD (gastroesophageal reflux disease) Anxiety and depression Atypical ductal hyperplasia, breast Asthma Migraine Family History Family History Father No problems noted. Mother No problems noted. Paternal Grandmother CVD (cardiovascular disease) Maternal Uncle Mouth cancer Maternal Grandmother Myocardial infarction CVD (cardiovascular disease) Gastric cancer Surgical History Surgical History History of laparoscopic cholecystectomy History of breast lump/mass excision History of breast surgery H/O LEEP History of tubal ligation History of umbilical hernia repair HIV (human immunodeficiency virus infection) History of Problems with Anesthesia: No Social History Social History Housing: Apartment Alcohol intake: current Alcohol intake frequency: holidays/special occasions only Alcohol type: beer, wine and hard liquor Patient Tobacco Use Status: Current everyday Tobacco user Tobacco use type: Cigarette Cigarettes Per Day: 10 e-Cigarette/Vaping Use: Never Used Second Hand Smoke Exposure: Yes Are you DNR?: No Advance Directives: No Advance Directives Information Provided: Yes Nutrition Risks: No Nutritional Risk Patient : No service: No Current occupational status: unemployed Sexual orientation: Straight/Heterosexual Gender identity: Female Cognitive needs: No Hearing needs: No Vision needs: Yes Meds Allergies Allergy/AdvReac Type Severity Reaction Status Date / Time No Known Allergies Allergy Verified 07/05/23 12:20 Exam Airway Mallampati Class: II TM Dist: >3cm Partial: Upper Loose/Missing/Broken Teeth: Yes and Upper Heart: RRR Lungs: CTA Assessment and Plan Assessment Anesthesia Assessment: Anesthesia Plan Discussed Final Anesthetic Review History of Problems with Anesthesia: No NPO: Yes ASA Class: II Final Preanesthetic Review: Meds/Allgs Chart Reviewed, Consent Obtained/Reviewed and Anes Risks/Benef Reviewed Patient Risk: Low Procedure Risk: Low Anesthetic Plan Anesthetic Plan: MAC: Disposition: Standard PACU
--- NOTE | 2023-08-08 06:31 | MHC.SHP ---
Pre-Procedural Eval Section A Date of Service: 08/08/23 Section B Chief Complaint: screening Relevant Family History (Specify if Yes): No Relevant Social History: Tobacco Use Present Medications: see Short Stay Collaborative assessment Medical History: Significant History (HIV (human immunodeficiency virus infection) Obesity (BMI 30-39.9) GENNA I (cervical intraepithelial neoplasia I) Overweight (BMI 25.0-29.9) Tobacco abuse Insomnia GERD (gastroesophageal reflux disease) Anxiety and depression Atypical ductal hyperplasia, breast Asthma Migraine) History of Previous Operations: Relevant previous surgery/procedure and date(s) (History of laparoscopic cholecystectomy History of breast lump/mass excision History of breast surgery H/O LEEP History of tubal ligation History of umbilical hernia repair) Allergies: Allergies Allergy/AdvReac Type Severity Reaction Status Date / Time No Known Allergies Allergy Verified 07/05/23 12:20 Review of Systems Sugical H&P ROS: Negative: Constitution, Cardiovascular, Respiratory, Neurological, Psychiatric, Hem-Onc, Allergic/Immunologic, Gastrointestinal, Genitourinary, Musculoskeletal, Integumentary, Endocrine and Eyes/Ears/Nose/Throat Exam Surgical H&P Exam: Normal: HEENT, Normal: Heart, Normal: Lungs, Normal: Extremities, Normal: Abdomen, Normal: Skin and Normal: Neurological Plan Diagnosis/Plan: Unchanged I have reviewed the history and physical and performed a pertinent physical examination on my patient. No changes have occurred unless specified. Time Spent With Patient Time: Total time managing care of this patient today ____ minutes.
[2023-08-08 06:53] VITALS: BP 102/69; PULSE 87; RESP 18; TEMP 36.1; O2SAT 97
[2023-08-08] MEDS: Lactated Ringers 1,000 ML 100 ML IVCONT (07:02)
--- NOTE | 2023-08-08 08:05 | W.PM.OPN ---
Operative Note Operative Note Date of Service: 08/08/23 Narrative: Operative Information Procedure Description: Colonoscopy Indication: screening Anesthesia: MAC COLONOSCOPY Instrument: Olympus variable stiffness pediatric scope 190L Colonoscopy Monitoring: Vital signs and clinical assessment, continuous EKG monitoring, Pulse oximetry, Carbon Dioxide monitoring and blood pressure monitoring were done throughout the procedure. Colon withdrawal time was 12 minutes. Procedure: The patient was placed in the left lateral decubitis position and pre-procedure medications were administered. After a digital rectal examination of the ano-rectum, the video colonoscope was inserted into the rectum and advanced through the colon to the cecum/TI. The colonoscope was slowly withdrawn in a retrograde panoramic fashion and the colon mucosa was carefully examined including a retroflexed view of the rectum. Findings and interventions are described below. Procedure Difficulty: moderate due to redundant colon Findings: Terminal Ileum-not intubated Cecum:normal Ascending Colon: normal Transverse Colon -normal Descending Colon: 12-14 mm sessile polyp, lifted with eleview and then removed with cold snare, with 2 clips applied for hemostasis Sigmoid Colon: normal Rectum: Retroflexion with small internal hemorrhoids, grade I Anorectum - normal Colon preparation: [place] Bowel Preparation Scale Right colon; 2 Transverse colon: 2 Left colon; 1-2 (0 = Unprepared colon segment with mucosa not seen due to solid stool that cannot be cleared. 1 = Portion of mucosa of the colon segment seen, but other areas of the colon segment not well seen due to staining, residual stool and/or opaque liquid. 2 = Minor amount of residual staining, small fragments of stool and/or opaque liquid, but mucosa of colon segment seen well. 3 = Entire mucosa of colon segment seen well with no residual staining, small fragments of stool or opaque liquid) Impression and Post Procedure Diagnosis: polyp internal hemorrhoids redundant colon Plan: High fiber diet leaflet Avoid straining at stool, epsom salts and sitz bath, anusol supps or cream Repeat Colonoscopy in 1-2 years due to fair prep and polyp or earlier if clinically indicated Above findings were reviewed with the patient and relevant handouts were provided if indicated.
[2023-08-08 08:10] VITALS: BP 87/55; PULSE 77; RESP 18; TEMP 37.2; O2SAT 97
[2023-08-08 08:25] VITALS: BP 106/67; PULSE 64; RESP 16; TEMP 36.6; O2SAT 99
== END 2023-08-08 08:50 | disposition home or self-care (01) ==
PROVIDERS: PCP Internal Medicine; Visit Provider Internal Medicine Gastroenterology
PROC: 0DJD8ZZ Inspection of Lower Intestinal Tract, Via Natural or Artificial Opening Endoscopic (ICD-10-PCS; CPT 45378; principal; 2023-08-08 07:30)
DX: Z12.11 Encounter for screening for malignant neoplasm of colon (principal); D12.4 Benign neoplasm of descending colon; K64.0 First degree hemorrhoids; K21.9 Gastro-esophageal reflux disease without esophagitis; Q43.8 Other specified congenital malformations of intestine; B20 Human immunodeficiency virus [HIV] disease; J45.909 Unspecified asthma, uncomplicated; F41.8 Other specified anxiety disorders; Z79.899 Other long term (current) drug therapy; F17.210 Nicotine dependence, cigarettes, uncomplicated; Z98.890 Other specified postprocedural states
CPT/HCPCS: 45385; 45381; 88305

== ENCOUNTER → 2023-08-08 06:37 | Outpatient (BNV) | payer OTHER, SELFPAY | PROVIDERS: PCP Internal Medicine; Visit Provider Internal Medicine Gastroenterology | DX: Z12.11 Encounter for screening for malignant neoplasm of colon (principal); D12.4 Benign neoplasm of descending colon; K64.0 First degree hemorrhoids | CPT/HCPCS: 45381; 45385 ==

== ENCOUNTER 2023-09-05 11:41 | Outpatient (AMB) | payer OTHER, SELFPAY ==
--- NOTE | 2023-09-05 11:49 | A.OFFVIS_ITS ---
Intake Vital Signs 09/05/23 11:51 Height 5 ft 3 in Weight 191 lb 12.835 oz BMI 34.0 BP 144/89 H Blood Pressure Location Lt brachial Position Sitting Pulse 77 Intake Visit Reasons: follow up Intake Note: Mayra presents in the office as a follow up. CC: She feels okay since her colonoscopy. Allergies No Known Allergies Allergy (Verified 09/05/23 11:52) Medication List - Last Reconciled 09/05/23 by Argelia West PA-C albuterol sulfate 2.5 mg (3 mL) inhalation Q6H pyopvmyvd-etcszrht-dgfjksr ala 50-200-25 mg (Biktarvy) 1 tab PO DAILY 30 days nebulizers (Aeroneb Go Nebulizer) As directed trazodone 50 mg PO BEDTIME PRN HPI HPI Comments History of Present Illness Details A 53 y/o f/u after colonoscopy- she tolerated well offered obstetrician gynecologist device she declined she preferred to have her niece(biomedical engineer) obstetrician gynecologist by phone Patient states had her gallbladder out several years ago at times has to have a BM right after she eats. She has no nausea, vomiting, hematemesis, hematochezia, abdominal pain, fever or chills Reviewed procedure report, pathology and recommendations [facility] Medical History (Updated 09/05/23 @ 13:28 by Argelia West PA-C) Colon cancer screening HIV (human immunodeficiency virus infection) Obesity (BMI 30-39.9) GENNA I (cervical intraepithelial neoplasia I) Overweight (BMI 25.0-29.9) Tobacco abuse Insomnia GERD (gastroesophageal reflux disease) Anxiety and depression Atypical ductal hyperplasia, breast Asthma Migraine Surgical History (Updated 08/13/23 @ 14:37 by Caroline Card) Hx of colonoscopy History of laparoscopic cholecystectomy History of breast lump/mass excision History of breast surgery H/O LEEP History of tubal ligation History of umbilical hernia repair HIV (human immunodeficiency virus infection) Family History Father No problems noted. Mother No problems noted. Paternal Grandmother CVD (cardiovascular disease) Maternal Uncle Mouth cancer Maternal Grandmother Myocardial infarction CVD (cardiovascular disease) Gastric cancer Social History Housing: Apartment Alcohol intake: current Alcohol intake frequency: holidays/special occasions only Alcohol type: beer, wine and hard liquor Patient Tobacco Use Status: Current everyday Tobacco user Tobacco use type: Cigarette Cigarettes Per Day: 10 e-Cigarette/Vaping Use: Never Used Second Hand Smoke Exposure: Yes service: No Current occupational status: unemployed Sexual orientation: Straight/Heterosexual Gender identity: Female Cognitive needs: No Hearing needs: No Vision needs: Yes Female Reproductive History Menstrual Age of Menarche: 13 Review of Systems Const All systems reviewed & are unremarkable except as noted in HPI and below Card Denies chest pain and Denies dyspnea Resp Denies dyspnea GI Denies abdominal pain, Denies hematochezia, Denies heartburn, Reports loose stools, Denies nausea and Denies vomiting Physical Exam Vital Signs: Last Vital Signs Pulse 77 09/05/23 11:51 BP 144/89 H 09/05/23 11:51 BMI result Body Mass Index 34.0 Const General: cooperative, healthy appearing, comfortable and no acute distress Nutritional Appearance: overweight Orientation/consciousness: patient oriented x3 Limitations: language barrier Eyes Sclerae: sclerae normal Resp Effort & Inspection: normal respiratory effort and able to speak in complete sentences Skin General skin exam: no rashes or lesions noted Neuro General: patient oriented x3 Extrem General: Yes full ROM Psych Appearance: grossly normal and well kempt Mental Status: mental status grossly normal Speech and movement: Normal speech and movement present Affect: normal affect Attitude: cooperative Thought process: Normal thought process present Thought content: Normal thought content present Results Reviewed Results Reviewed: mpression and Post Procedure Diagnosis: polyp internal hemorrhoids redundant colon Plan: High fiber diet leaflet Avoid straining at stool, epsom salts and sitz bath, anusol supps or cream Repeat Colonoscopy in 1-2 years due to fair prep and polyp or earlier if clinically indicated gabby: Mayra Huggins Age/Sex: 53/F Attending: Felix Jackman MD : 1970 Submitted by: Felix Jackman MD Copies to: Chaparro Luevano MD MR #: [id number] Status: [facility] Collected: 08/08/23 Location: [facility] Received: 08/08/23 Diagnosis Colon, descending, polyp: 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 Clinical History Pre-Op Dx: Colon cancer screening Post-Op Dx: Colon polyp, redundant colon, hemorrhoids, fair prep Microscopic Description Microscopic sections reviewed. Material Received Descending colon polyp Gross Description Received in formalin labeled ?descending colon polyp? are multiple lyn and lyn- pink irregular and papular tissue fragments ranging from 0.2-0.45 cm, aggregating 1.5 x 1.4 x 0.45 cm, submitted in toto in cassette A. CEDS Copies To Felix Jackman MD [address] [place] [address] [place] [address] Chaparro Luevano MD [address] [place] [address] Dr. Mcintosh [address] [place], [place] [address] [address] NOTE: Unless otherwise stated, all tissue is formalin-fixed and paraffin-embedded. Some or all of the immunohistochemical tests reported herein may have been developed and their performance characteristics determined by [facility]. They have not been cleared or approved by the U.S. Food and Drug Administration (FDA). However, the FDA has determined that such clearance or approval is not necessary. This laboratory is certified under the Clinical Laboratory Improvement Amendments of 1988 (CLIA) as qualified to perform high complexity clinical laboratory testing. Patient: Mayra Huggins Age/Sex: 53/F MR#: [id number] Page 1 of 2 On 08/20/23 @ 21:13 Felix Jackman Wrote To Fany Huber pls tell pt pre cancerous polyp removed which is good news, adenoma/serrated type, repeat colon in 1 year or earlier if any concerns or new symptoms Assessment & Plan Assessment & Plan (1) Tubulovillous adenoma: Code(s): D36.9 - Benign neoplasm, unspecified site Plan: Repeat asymptomatic colonoscopy 1 year All first-degree relatives begin screening at age 40 Maintain high-fiber diet Monitor alcohol intake may play a role (2) Hemorrhoids: Code(s): K64.9 - Unspecified hemorrhoids (3) Loose stools: Comment: Alcohol med plan role, maintain high-fiber diet fiber supplement Code(s): R19.5 - Other fecal abnormalities Plan: Decreased alcohol Fiber Plan Repeat asymptomatic colonoscopy 1 year All first-degree relatives begin screening at age 40 Maintain high-fiber diet Monitor alcohol intake Medications: New methylcellulose (laxative) (Citrucel) 500 mg PO TID 90 tabs 5RF hydrocortisone 2.5% (Proctosol HC) 1 appl [place] BEDTIME PRN 30 grams 3RF hemorrhoids Patient Instructions: Repeat asymptomatic colonoscopy 1 year, sooner if indicated Will see back in 9 months All first-degree relatives begin screening at age 40 Maintain high-fiber diet Monitor alcohol intake may play a role Coding Level of Care Code Est Pt Level 3 (92710) Diagnoses Tubulovillous adenoma D36.9 Hemorrhoids K64.9 Loose stools R19.5 Time Spent (min) 30 Comment obstetrician gynecologist
[2023-09-05 11:51] VITALS: BP 144/89; PULSE 77; BMI 34.0
== END 2023-09-05 13:51 | disposition home or self-care (01) ==
LOC: HO.HGI 11:41
PROVIDERS: PCP Internal Medicine; Visit Provider Physician Assistant
DX: D36.9 Benign neoplasm, unspecified site (principal); K64.9 Unspecified hemorrhoids; R19.5 Other fecal abnormalities
CPT/HCPCS: 99213

== ENCOUNTER → 2023-09-05 11:41 | Outpatient (BNVA) | payer OTHER, SELFPAY | PROVIDERS: PCP Internal Medicine; Visit Provider Physician Assistant | DX: D36.9 Benign neoplasm, unspecified site (principal); K64.9 Unspecified hemorrhoids; R19.5 Other fecal abnormalities | CPT/HCPCS: 99212 ==

== ENCOUNTER 2023-12-26 13:57 | Outpatient (REF) | payer OTHER, SELFPAY ==
[2023-12-26 14:08] LABS: MANUAL DIFF FLAG NO
[2023-12-26 15:13] LABS: Basophils Absolute Auto 0.1 X10*3/uL (0.0-0.2); Basophils Percent Auto 0.9 % (0-2); Eosinophils Absolute Auto 0.2 X10*3/uL (0.0-0.4); Eosinophils Percent Auto 2.9 % (0-4); Hematocrit 43.8 % (37.0-47.0); Hemoglobin 14.8 g/dl (12.0-16.0); Imm Gran Abs Auto 0.03 X10*3/uL (0.00-0.03); Imm Gran Pct Auto 0.4 % (0.0-0.4); Lymphocytes Absolute Auto 2.4 X10*3/uL (1.2-4.9); Lymphocytes Percent Auto 32.4 % (20-40); Mean Corpuscular HGB Conc 33.8 g/dl (31.0-35.0); Mean Corpuscular Hemoglobin 30.7 pg (27.0-33.0); Mean Corpuscular Volume 90.9 fL (80.0-98.0); Mean Platelet Volume 10.6 fL (9.4-12.3); Monocytes Absolute Auto 0.6 X10*3/uL (0.1-1.2); Monocytes Percent Auto 7.5 % (2-11); Neutrophils Absolute Auto 4.2 x10*3/uL (2.0-8.3); Neutrophils Percent Auto 55.9 % (45-73); Platelet Count 311 X10*3/uL (160-400); Red Blood Count 4.82 X10*6/uL (4.20-5.50); Red Cell Distribution Width 12.9 % (11.0-16.0); White Blood Count 7.5 X10*3/uL (4.8-10.8)
[2023-12-26 15:56] LABS: Alanine Aminotransferase 25 U/L (0-31); Albumin Level 4.3 g/dL (3.5-5.0); Alkaline Phosphatase 54 U/L (39-117); Anion Gap 12 (12-20); Aspartate Amino Transferase 23 U/L (5-31); Bilirubin Direct 0.1 mg/dL (0.0-0.5); Bilirubin Total 0.3 mg/dL (0.0-1.0); Blood Urea Nitrogen 10 mg/dL (9-16); Calcium 9.7 mg/dL (8.4-10.2); Carbon Dioxide 28 mmol/L (22-29); Chloride 106 mmol/L (96-108); Estimated Glomerular Filt Rate > 60; Glucose Random 95 mg/dL (60-115); Sodium 142 mmol/L (135-145); Total Protein 7.7 g/dL (6.5-8.0)
[2023-12-27 04:06] LABS: Syphilis Screen Reactive (Nonreactive)
[2023-12-27 11:09] LABS: Absolute CD3 Count 1358 cells/uL (840-3060); Absolute CD4 Count 610 cells/uL (490-1740); Absolute CD8 Count 776 cells/uL (180-1170); Absolute Lymphocytes 2387 cells/uL (850-3900); CD4 CD8 Ratio 0.79 (0.86-5.00); Percent CD3 Cells 57 % (57-85); Percent CD4 Cells 26 % (30-61); Percent CD8 Cells 33 % (12-42)
[2023-12-28 20:14] LABS: HIV RNA PCR Qn Copies <20 DETECTED copies/mL (NOT DETECTED); HIV RNA PCR Qn Log Copies <1.30 DETECTED (NOT DETECTED)
[2024-01-02 15:44] LABS: RPR Quantitative Non-Reactive (Nonreactive)
[2024-01-02 15:45] LABS: T.Pallidum Particle Agg Test Non-Reactive (Nonreactive)
== END 2023-12-26 13:58 | disposition home or self-care (01) ==
LOC: HO.LAB 13:57
PROVIDERS: PCP Internal Medicine; Visit Provider Internal Medicine
DX: Z11.4 Encounter for screening for human immunodeficiency virus [HIV] (principal); R09.81 Nasal congestion; B20 Human immunodeficiency virus [HIV] disease
CPT/HCPCS: 36415; 80048; 80076; 85025; 86359; 86360; 86592; 86780; 87536

== ENCOUNTER 2024-01-08 12:02 | Outpatient (AMB) | payer OTHER, SELFPAY ==
[2024-01-08 12:02] VITALS: PULSE 88; O2SAT 99; BMI 36.0
--- NOTE | 2024-01-08 12:02 | A.OFFVIS_ITS ---
Vital Signs 3 01/08/24 12:02 Height 5 ft 3 in Weight 203 lb BMI 36.0 Pulse 88 Pulse Source Pulse Oximeter Pulse Oximetry (%) 99 Intake Visit Reasons: 6 mth,f/u.Lab Slumber Room Attendant Required: Yes Slumber Room Attendant Name: Mary Grimes CMA Information Interpreted: clinical only Allergies No Known Allergies Allergy (Verified 01/09/24 12:41) HPI HPI 6 mth,f/u.Lab: Details: She is doing well. She has CD4 count of 610 and viral load undetectable on 12/25. [facility] Medical History Colon cancer screening HIV (human immunodeficiency virus infection) Obesity (BMI 30-39.9) GENNA I (cervical intraepithelial neoplasia I) Overweight (BMI 25.0-29.9) Tobacco abuse Insomnia GERD (gastroesophageal reflux disease) Anxiety and depression Atypical ductal hyperplasia, breast Asthma Migraine Surgical History Hx of colonoscopy History of laparoscopic cholecystectomy History of breast lump/mass excision History of breast surgery H/O LEEP History of tubal ligation History of umbilical hernia repair HIV (human immunodeficiency virus infection) Family History Father No problems noted. Mother No problems noted. Paternal Grandmother CVD (cardiovascular disease) Maternal Uncle Mouth cancer Maternal Grandmother Myocardial infarction CVD (cardiovascular disease) Gastric cancer Social History Housing: Apartment Alcohol intake: current Alcohol intake frequency: holidays/special occasions only Alcohol type: beer, wine and hard liquor Comment: 2 x a month 6 drinks Patient Tobacco Use Status: Current everyday Tobacco user Tobacco use type: Cigarette Cigarettes Per Day: 10 Years Smoked: since 16 years old e-Cigarette/Vaping Use: Never Used Second Hand Smoke Exposure: Yes service: No Current occupational status: unemployed Sexual orientation: Straight/Heterosexual Gender identity: Female Cognitive needs: No Hearing needs: No Vision needs: Yes Female Reproductive History Menstrual Age of Menarche: 13 Review of Systems Const All systems reviewed & are unremarkable except as noted in HPI and below Physical Exam Vital Signs: Last Vital Signs Pulse 88 01/08/24 12:02 Pulse Ox 99 01/08/24 12:02 BMI result Body Mass Index 36.0 Const Other: General: cooperative Orientation/consciousness: patient oriented x3 HEENT Head: Yes normal to inspection Mouth: Normal oral and palatal mucosa present Eyes General: appearance normal, both eyes and all related structures Pupils: Equal, round and reactive pupils present Resp Effort & Inspection: normal respiratory effort Cardio Rate: regular rate Rhythm: regular rhythm GI Palpation (GI): Soft to palpation and nontender General: Yes no CVA tenderness Back/Spine/Pelvis Back: no CVA tenderness Skin General skin exam: no rashes or lesions noted Neuro General: patient oriented x3 Cranial nerves: Yes CN's II-XII intact bilaterally and Yes Equal, round and reactive pupils present Extrem General: Yes normal to inspection Psych Appearance: grossly normal Assessment & Plan Assessment & Plan (1) HIV (human immunodeficiency virus infection): Comment: She has been doing well She has no complaints She is taking Biktarvy and is up to date with health care she says Her CD4 count and viral load are appropriate Code(s): B20 - Human immunodeficiency virus [HIV] disease Category: Surgical Qualifiers: HIV symptom status: asymptomatic, with no history of HIV-related illness Qualified Code(s): Z21 - Asymptomatic human immunodeficiency virus [HIV] infection status Plan: Continue Biktarvy. See in six months. Labs and Biktarvy written for. Orders: Orders 2 HIV-1 RNA QN PCR Expanded 5 Months Z21 - Asymptomatic human immunodeficiency virus [HIV] infection status Lymphocyte Subset Panel 3 5 Months Z21 - Asymptomatic human immunodeficiency virus [HIV] infection status Medications: New 2 nicotine (Nicoderm CQ) 1 patch transdermal DAILY 28 ea 0RF 28 days Refilled 2 zvetwrtsx-uycorxsy-hoiqeia ala 50-200-25 mg (Biktarvy) 1 tab PO DAILY 30 tabs 5RF 30 days wepyzfsyo-cktcdlsk-pcbyjri ala 50-200-25 mg (Biktarvy) 1 tab PO DAILY 30 tabs 5RF 30 days
== END 2024-01-08 14:23 | disposition home or self-care (01) ==
LOC: HO.HID 12:02
PROVIDERS: PCP Internal Medicine; Visit Provider Internal Medicine
DX: Z21 Asymptomatic human immunodeficiency virus [HIV] infection status (principal)
CPT/HCPCS: 99214

== ENCOUNTER → 2024-01-08 12:02 | Outpatient (BNVA) | payer OTHER, SELFPAY | PROVIDERS: PCP Internal Medicine; Visit Provider Internal Medicine | DX: Z21 Asymptomatic human immunodeficiency virus [HIV] infection status (principal) | CPT/HCPCS: 99212 ==

== ENCOUNTER 2024-01-09 12:20 | Outpatient (AMB) | payer OTHER, SELFPAY ==
[2024-01-09 12:40] VITALS: BP 134/70; PULSE 75; O2SAT 98; BMI 35.1
--- NOTE | 2024-01-09 12:40 | MHC.PC.OV ---
Vital Signs 01/09/24 12:40 Height 5 ft 3 in Weight 198 lb BMI 35.1 BP 134/70 Blood Pressure Location Lt brachial Position Sitting Pulse 75 Pulse Source Pulse Oximeter Pulse Oximetry (%) 98 Oxygen Delivery Method Room Air Intake Visit Reasons: Physical exam Allergies No Known Allergies Allergy (Verified 01/09/24 12:41) Medication List - Last Reconciled 01/09/24 by Chaparro Luevano MD albuterol sulfate 2.5 mg (3 mL) inhalation Q6H albuterol sulfate 2.5 mg (3 mL) inhalation Q4-6H PRN ouyhxgmqg-auacsqch-spwjomd ala 50-200-25 mg (Biktarvy) 1 tab PO DAILY 30 days hydrocortisone 2.5% (Proctosol HC) 1 appl DE BEDTIME PRN methylcellulose (laxative) (Citrucel) 500 mg PO TID nebulizers (Aeroneb Go Nebulizer) As directed nicotine (Nicoderm CQ) 1 patch transdermal DAILY 28 days trazodone 50 mg PO BEDTIME PRN triamcinolone acetonide 0.5% 1 appl topical BID Tobacco use date assessed: 01/09/24 Dental Screening Dental Screen Date: 01/09/24 Did you have a dental visit in the last 12 months?: Yes Did you have a dental problem in the last 6 months where you did not have access to dental care?: No Was dental information given to patient?: Patient has dentist HPI Physical exam HPI Details 53-year-old obese female smoker with a history of HIV GERD asthma coming in for physical exam last seen in January 2023. Patient's mammogram is up-to-date colonoscopy July 2023 and advised to repeat in 1-2 years. Patient continues to follow-up with infectious disease on . noted intermitttently having breast discharge, clear, . had nausea and vomiting saturday and having diarrhea , better now [facility] Medical History (Updated 01/09/24 @ 13:06 by Chaparro Luevano MD) Colon cancer screening HIV (human immunodeficiency virus infection) Obesity (BMI 30-39.9) GENNA I (cervical intraepithelial neoplasia I) Overweight (BMI 25.0-29.9) Tobacco abuse Insomnia GERD (gastroesophageal reflux disease) Anxiety and depression Atypical ductal hyperplasia, breast Asthma Migraine Surgical History (Updated 11/14/23 @ 14:37 by Caroline Card) Hx of colonoscopy History of laparoscopic cholecystectomy History of breast lump/mass excision History of breast surgery H/O LEEP History of tubal ligation History of umbilical hernia repair HIV (human immunodeficiency virus infection) Family History Father No problems noted. Mother No problems noted. Paternal Grandmother CVD (cardiovascular disease) Maternal Uncle Mouth cancer Maternal Grandmother Myocardial infarction CVD (cardiovascular disease) Gastric cancer Social History (Updated 01/09/24 @ 12:58 by Chaparro Luevano MD) Housing: Apartment Alcohol intake: current Alcohol intake frequency: holidays/special occasions only Alcohol type: beer, wine and hard liquor Comment: 2 x a month 6 drinks Patient Tobacco Use Status: Current everyday Tobacco user Tobacco use type: Cigarette Cigarettes Per Day: 10 Years Smoked: since 16 years old e-Cigarette/Vaping Use: Never Used Second Hand Smoke Exposure: Yes service: No Current occupational status: unemployed Sexual orientation: Straight/Heterosexual Gender identity: Female Cognitive needs: No Hearing needs: No Vision needs: Yes Female Reproductive History Menstrual Age of Menarche: 13 Questionnaire PHQ-9 Over the last 2 weeks, how often have you been bothered by any of the following problems? 1. Little interest or pleasure in doing things: not at all 2. Feeling down, depressed, or hopeless: not at all 3. Trouble falling or staying asleep, or sleeping too much: not at all 4. Feeling tired or having little energy: not at all 5. Poor appetite or overeating: not at all 6. Feeling bad about yourself - or that you are a failure or have let yourself or your family down: not at all 7. Trouble concentrating on things, such as reading the newspaper or watching television: not at all 8. Moving or speaking so slowly that other people could have noticed. Or the opposite - being so fidgety or restless that you have been moving around a lot more than usual: not at all 9. Thoughts that you would be better off or of hurting yourself in some way: not at all Total score: 0 Depression Screening Interpretation: Negative Depression Screening Done: Yes Source: Developed by Drs. Anil Witt, Penelope Crystal, Hernán Melgar and colleagues, with an educational elana from [employer]. Thrive Questionnaire Date Thrive assessed: 01/09/24 I am a: Patient What is your living situation today?: I have a steady place to live Within the past 12 months, did the food you bought not last and you didn't have the money to get more?: Never true Within the past 12 months, did you worry whether your food would run out before you got money to buy more?: Never true Do you have trouble paying for medicines?: No Do you have trouble getting transportation to medical appointments?: No Do you have trouble paying your heating and electricity bill?: No Do you have trouble taking care of your child, family member or friend?: No Do you have trouble with day-to-day activities such as bathing, preparing meals, shopping, managing finances, etc.?: No Are you currently unemployed and looking for a job?: No Are you interested in more education?: No Currently or been in a relationship where the following occur: no concerns reported THRIVE Score: 0 AUDIT C Alcohol Use Questionnaire (AUDIT-C) 1. How often do you have a drink containing alcohol?: Monthly or less 2. How many drinks containing alcohol do you have on a typical day when you are drinking?: 1 or 2 Total Score: 1 ARIS-7 AMB Questionnaire ARIS-7 Date ARIS - 7 assessed: 01/09/24 Feeling nervous, anxious, or on edge: 0 = Not at all Not being able to stop or control worryin = Not at all Worrying too much about different things: 0 = Not at all Trouble relaxin = Not at all Being so restless that it is hard to sit still: 0 = Not at all Becoming easily annoyed or irritable: 0 = Not at all Feeling afraid as if something awful might happen: 0 = Not at all Total ARIS-7 score (0-4 normal; 5-9 mild; 10-14 moderate; 15-21 severe): 0 Source: Developed by Drs. Anil Witt, Penelope Crystal, Hernán Melgar and colleagues, with an educational elana from [employer]. Review of Systems Const Denies poor appetite and Denies weakness Eyes Denies no additional complaints ENT Reports Normal hearing present, Denies dizziness, Denies nasal congestion, Denies tinnitus and Denies sore throat Card Denies chest pain, Denies syncope, Denies rapid heart rate and Denies dyspnea Resp Denies cough and Denies dyspnea GI Denies change in stool character, Reports constipation, Denies diarrhea, Denies nausea and Denies vomiting Denies urinary frequency, Denies difficulty voiding and Denies dysuria Neuro Reports Normal hearing present, Denies confusion, Denies dizziness, Denies syncope and Denies weakness Psych Denies confusion Physical exam (Primary Care) Vital Signs: Last Vital Signs Pulse 75 01/09/24 12:40 BP 134/70 01/09/24 12:40 Pulse Ox 98 01/09/24 12:40 Oxygen Delivery Method Room Air 01/09/24 12:40 BMI result Body Mass Index 35.1 Tobacco/Smoking Status: Tobacco use Status Tobacco use date assessed 01/09/24 01/09/24 12:43 Patient Tobacco Use Status Current everyday Tobacco 01/09/24 12:58 Tobacco use type Cigarette 01/09/24 12:58 e-Cigarette/Vaping Use Never Used 01/09/24 12:58 PHQ-9: PHQ-9 Score PHQ-9: Total score 0 01/09/24 12:46 Depression Screening Interpretation: Negative Thrive Assessment: Date of Thrive Assessment Date Thrive assessed 01/09/24 01/09/24 12:43 Currently or been in a relationship where the following occur: no concerns reported Const General: No confusion Orientation/consciousness: No confusion HENMT Head: Yes normocephalic Ears: external ears normal and TM's normal bilaterally Face and sinus: Yes normal facial exam Mouth: moist mucous membranes Throat: Yes tonsils normal Eyes Conjunctivae: conjunctivae normal Pupils: Equal, round and reactive pupils present and Pupil accommodation reflex normal Direct Ophthalmoscopy: normal light reflex Neck Neck: No lymphadenopathy Thyroid: Thyroid normal Chest Chest palpation & inspection: normal inspection of the chest Resp Effort & Inspection: normal respiratory effort and no audible wheezes Auscultation: clear to auscultation bilaterally, no crackles, no wheezes and lung sounds not diminished Cardio Rate: regular rate Rhythm: regular rhythm Peripheral pulses: radial pulses present and dorsalis pedis present GI Palpation (GI): no masses Auscultation: normal bowel sounds and normoactive bowel sounds Rectal Exam - Female: deferred Skin General skin exam: no rashes or lesions noted Rashes: no rashes Neuro General: No confusion Cranial nerves: Yes Equal, round and reactive pupils present and Yes Normal hearing present Cognition (Neuro): normal cognition Gait exam (Neuro): Normal gait present Motor exam (neuro): 5/5 motor strength present throughout Deep tendon reflexes (DTR's): Right brachioradialis reflex intensity grade: 2+, Left brachioradialis reflex intensity grade: 2+, Right patellar reflex intensity grade: 2+ and Left patellar reflex intensity grade: 2+ Extrem General: No edema Immunizations pneumoc 20-loretta conj-dip cr(PF) 0.5 mL IM syringe Performing Provider: Chaparro Luevano MD Performing Location: [facility] Administered by: CHRISTIAN Waggoner on 01/09/24 13:12 Dose Route Admin Location Dispensed Lot Number Expiration Date NDC Busboy 0.5 mL IM Left Deltoid 0.5 mL [id number] 11/28/24 0595-8652-35 [employer] VIS Given Date VIS Provided VIS Publication Date 01/09/24 Single Vaccine 21 Eligibility Eligibility Date Funding Source Not [facility] Eligible 01/09/24 Private Assessment and Plan Assessment & Plan (1) Annual physical exam: Code(s): Z00.00 - Encounter for general adult medical examination without abnormal findings (2) Obesity (BMI 30-39.9): Code(s): E66.9 - Obesity, unspecified Plan: Diet and exercise (3) Tobacco abuse: Code(s): Z72.0 - Tobacco use Plan: Patient is strongly advised to stop smoking (4) GERD (gastroesophageal reflux disease): Code(s): K21.9 - Gastro-esophageal reflux disease without esophagitis Plan: Avoid the foods that causes that usually spicy foods, tomato products, juices, coffee, soda and foods that your sensitive to. After eating do not lie down, allow 3-4 hours before in lie down. And keep the head of bed above 30 degrees to avoid the acid from going up. (5) Asthma: Code(s): J45.909 - Unspecified asthma, uncomplicated Plan: Patient on albuterol inhaler as needed (6) HIV (human immunodeficiency virus infection): Comment: She has been doing well She has no complaints She is taking Biktarvy and is up to date with health care she says Her CD4 count and viral load are appropriate Code(s): B20 - Human immunodeficiency virus [HIV] disease Qualifiers: HIV symptom status: asymptomatic, with no history of HIV-related illness Qualified Code(s): Z21 - Asymptomatic human immunodeficiency virus [HIV] infection status Plan: Continue to follow-up with comprehensive care clinic. (7) Tubulovillous adenoma: Code(s): D36.9 - Benign neoplasm, unspecified site Plan: Patient was advised to have another colonoscopy this year (8) Eczema of hand: Code(s): L30.9 - Dermatitis, unspecified (9) Breast discharge: Code(s): N64.52 - Nipple discharge (10) Sebaceous cyst of left axilla: Code(s): L72.3 - Sebaceous cyst Orders: Orders Thyroid Stimulating Hormone 6 Months K21.9 - Gastro-esophageal reflux disease without esophagitis Vitamin B12 and Folate 6 Months K21.9 - Gastro-esophageal reflux disease without esophagitis Vitamin D 25-OH Total 6 Months K21.9 - Gastro-esophageal reflux disease without esophagitis Complete Blood Count Auto Diff 6 Months K21.9 - Gastro-esophageal reflux disease without esophagitis Comprehensive Met. Panel 6 Months K21.9 - Gastro-esophageal reflux disease without esophagitis Free T4 (Free Thyroxine) 6 Months K21.9 - Gastro-esophageal reflux disease without esophagitis Lipid Panel 6 Months E78.00 - Pure hypercholesterolemia, unspecified, K21.9 - Gastro-esophageal reflux disease without esophagitis Pneumococcal 20 Immunization Today Z23 - Encounter for immunization Referrals General Surgery Referral L72.3 - Sebaceous cyst DIRECTOR OF SOLUTIONS ARCHITECTURE Referral N64.52 - Nipple discharge Medications: New albuterol sulfate 2.5 mg (3 mL) inhalation Q4-6H PRN 180 mL 0RF shortness of breath or wheezing J45.909 - Unspecified asthma, uncomplicated pneumoc 20-loretta conj-dip cr(PF) 0.5 mL IM ONCE 0.5 mL 0RF Z23 - Encounter for immunization triamcinolone acetonide 0.5% 1 appl topical BID 30 grams 0RF L30.9 - Dermatitis, unspecified Refilled albuterol sulfate 2.5 mg (3 mL) inhalation Q6H 180 mL 1RF J45.901 - Unspecified asthma with (acute) exacerbation Coding Level of Care Code Est Pt Prev Care 40-64y(45864) Diagnoses Annual physical exam Z00.00 Obesity (BMI 30-39.9) E66.9 Tobacco abuse Z72.0 GERD (gastroesophageal reflux disease) K21.9 Asthma J45.909 Asymptomatic HIV infection, with no history of HIV-related illness Z21 HIV symptom status: asymptomatic, with no history of HIV-related illness Tubulovillous adenoma D36.9 Eczema of hand L30.9 Breast discharge N64.52 Sebaceous cyst of left axilla L72.3
== END 2024-01-09 13:23 | disposition home or self-care (01) ==
PROVIDERS: PCP Internal Medicine; Visit Provider Internal Medicine
DX: Z23 Encounter for immunization (principal); Z00.00 Encounter for general adult medical examination without abnormal findings; E66.9 Obesity, unspecified; Z68.35 Body mass index [BMI] 35.0-35.9, adult; F17.210 Nicotine dependence, cigarettes, uncomplicated; J45.909 Unspecified asthma, uncomplicated; Z21 Asymptomatic human immunodeficiency virus [HIV] infection status; D36.9 Benign neoplasm, unspecified site; L30.9 Dermatitis, unspecified; N64.52 Nipple discharge; L72.3 Sebaceous cyst
CPT/HCPCS: 90471; 90677; 99396

== ENCOUNTER 2024-01-27 13:42 | Outpatient (AMB) | payer OTHER, SELFPAY ==
--- NOTE | 2024-01-27 13:44 | A.OFFVIS_ITS ---
Vital Signs 01/27/24 13:51 Height 5 ft 3 in Weight 197 lb BMI 34.9 BP 120/77 Blood Pressure Location Rt brachial Position Sitting Pulse 76 Intake Visit Reasons: EIC~ Lt axilla Intake Note: Patient referred by PCP Dr. Luevano for cyst on Lt axilla. Present for 1yr. Patient c/o: multiple dark dots on axilla some getting larger. 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 Unfortunately cyst is no longer present according to the patient. Chart was reviewed and patient evaluated [facility] Medical History Colon cancer screening HIV (human immunodeficiency virus infection) Obesity (BMI 30-39.9) GENNA I (cervical intraepithelial neoplasia I) Overweight (BMI 25.0-29.9) Tobacco abuse Insomnia GERD (gastroesophageal reflux disease) Anxiety and depression Atypical ductal hyperplasia, breast Asthma Migraine Surgical History Hx of colonoscopy History of laparoscopic cholecystectomy History of breast lump/mass excision History of breast surgery H/O LEEP History of tubal ligation History of umbilical hernia repair HIV (human immunodeficiency virus infection) Family History Father No problems noted. Mother No problems noted. Paternal Grandmother CVD (cardiovascular disease) Maternal Uncle Mouth cancer Maternal Grandmother Myocardial infarction CVD (cardiovascular disease) Gastric cancer Social History Housing: Apartment Alcohol intake: current Alcohol intake frequency: holidays/special occasions only Alcohol type: beer, wine and hard liquor Comment: 2 x a month 6 drinks Patient Tobacco Use Status: Current everyday Tobacco user Tobacco use type: Cigarette Cigarettes Per Day: 10 Years Smoked: since 16 years old e-Cigarette/Vaping Use: Never Used Second Hand Smoke Exposure: Yes service: No Current occupational status: unemployed Sexual orientation: Straight/Heterosexual Gender identity: Female Cognitive needs: No Hearing needs: No Vision needs: Yes Female Reproductive History Menstrual Age of Menarche: 13 Physical Exam Vital Signs: Last Vital Signs Pulse 76 01/27/24 13:51 BP 120/77 01/27/24 13:51 BMI result Body Mass Index 34.9 Extrem Other: Patient has old scarring of the left axilla from prior cyst type processes but at present no obvious sebaceous cyst or abscess demonstrated. Assessment & Plan Assessment & Plan (1) Sebaceous cyst of left axilla: Code(s): L72.3 - Sebaceous cyst Category: Medical Plan Current plan is if the patient has a recurrence of her symptoms, she is to call the office and the me evaluate the axilla without her trying to pop the cyst. She understands this. All questions answered. Patient will see me p.r.n.. Coding Level of Care Code New Pt Level 4 (87334) Diagnoses Sebaceous cyst of left axilla L72.3
[2024-01-27 13:51] VITALS: BP 120/77; PULSE 76; BMI 34.9
== END 2024-01-27 13:59 | disposition home or self-care (01) ==
PROVIDERS: PCP Internal Medicine; Referring Provider Internal Medicine; Visit Provider Surgery
DX: L72.3 Sebaceous cyst (principal)
CPT/HCPCS: 99204

== ENCOUNTER → 2024-01-27 13:42 | Outpatient (BNVA) | payer OTHER, SELFPAY | PROVIDERS: PCP Internal Medicine; Referring Provider Internal Medicine; Visit Provider Surgery | DX: L72.3 Sebaceous cyst (principal) | CPT/HCPCS: 99202 ==

== ENCOUNTER 2024-03-05 13:49 | Outpatient (REF) | payer OTHER, SELFPAY ==
[2024-03-05 15:42] LABS: HCG Quantitative < 2 mIU/mL
[2024-03-07 10:49] LABS: Prolactin 8.8 ng/mL
== END 2024-03-05 13:50 | disposition home or self-care (01) ==
LOC: HO.LAB 13:49
PROVIDERS: PCP Internal Medicine; Visit Provider Obstetrics & Gynecology
DX: N64.52 Nipple discharge (principal)
CPT/HCPCS: 36415; 84146; 84702; 99212

== ENCOUNTER 2024-03-05 13:49 | Outpatient (AMB) | payer OTHER, SELFPAY ==
[2024-03-05 13:51] VITALS: BP 110/60; BMI 34.8
--- NOTE | 2024-03-05 13:51 | MHC.OFFVIS ---
Vital Signs 03/05/24 13:51 Height 5 ft 3 in Weight 196 lb 3.382 oz BMI 34.8 BP 110/60 Intake Visit Reasons: nipple discharge International Exchange Coordinator Required: Yes International Exchange Coordinator Language: Computer System Technician Name: Mercedes GONZALES Information Interpreted: non-clinical & clinical Promotions Associate: Promotions Associate Present (Mercedes GONZALES) Accompanied by: Self / Same As Patient Allergies No Known Allergies Allergy (Verified 03/05/24 13:53) Is last menstrual period known: Yes Last menstrual period: 02/25/24 HPI Comments Details: Presenting complaining of bilateral spontaneous nipple discharge, clear in color nonbloody with no other associated symptoms. Last screening mammogram was in 06/22 was BI-RADS 2 [facility] Medical History Colon cancer screening HIV (human immunodeficiency virus infection) Obesity (BMI 30-39.9) GENNA I (cervical intraepithelial neoplasia I) Overweight (BMI 25.0-29.9) Tobacco abuse Insomnia GERD (gastroesophageal reflux disease) Anxiety and depression Atypical ductal hyperplasia, breast Asthma Migraine Surgical History Hx of colonoscopy History of laparoscopic cholecystectomy History of breast lump/mass excision History of breast surgery H/O LEEP History of tubal ligation History of umbilical hernia repair HIV (human immunodeficiency virus infection) Family History Father No problems noted. Mother No problems noted. Paternal Grandmother CVD (cardiovascular disease) Maternal Uncle Mouth cancer Maternal Grandmother Myocardial infarction CVD (cardiovascular disease) Gastric cancer Social History Housing: Apartment Alcohol intake: current Alcohol intake frequency: holidays/special occasions only Alcohol type: beer, wine and hard liquor Comment: 2 x a month 6 drinks Patient Tobacco Use Status: Current everyday Tobacco user Tobacco use type: Cigarette Cigarettes Per Day: 10 Years Smoked: since 16 years old e-Cigarette/Vaping Use: Never Used Second Hand Smoke Exposure: Yes service: No Current occupational status: unemployed Sexual orientation: Straight/Heterosexual Gender identity: Female Cognitive needs: No Hearing needs: No Vision needs: Yes Female Reproductive History Menstrual Age of Menarche: 13 Date of last menstrual period: 02/25/24 Physical Exam Vital Signs: Last Vital Signs BP 110/60 03/05/24 13:51 BMI result Body Mass Index 34.8 Chest Chest palpation & inspection: normal inspection of the chest and normal palpation of entire chest wall Breast/axilla inspection: normal inspection of the breasts and normal inspection of the axillae Breast/axilla palpation: normal palpation of the breasts Assessment & Plan Assessment & Plan (1) Nipple discharge: Code(s): N64.52 - Nipple discharge Category: Medical Plan: Discussed with the patient the differential diagnosis of nipple discharge including but not limited to: hypothyroidism, prolactinoma, non secreting pituitary tumors, intraductal papillomas, breast pre ca and ca and other causes. The workup includes TSH, PRL ( Instructed the patient to have a blood drawn when fasting and with 3 days of no nipple manipulation), diagnostic bilateral mammogram and bilateral breast ultrasound . Instructions given the patient to schedule a 2 week follow-up appointment. All questions answered, the patient verbalized understanding Orders: Orders Prolactin Today N64.52 - Nipple discharge HCG Quantitative Today N64.52 - Nipple discharge US breast RT complete Today N64.52 - Nipple discharge MM diagnostic mammo BI Today N64.52 - Nipple discharge US breast LT complete Today N64.52 - Nipple discharge Coding Level of Care Code Est Pt Level 3 (80935) Diagnoses Nipple discharge N64.52
== END 2024-03-05 14:58 | disposition home or self-care (01) ==
PROVIDERS: PCP Internal Medicine; Visit Provider Obstetrics & Gynecology
DX: N64.52 Nipple discharge (principal)
CPT/HCPCS: 99213

== ENCOUNTER 2024-03-16 10:57 | Outpatient (REF) | payer OTHER, SELFPAY ==
--- NOTE | ~2024-03-16 | MM_ITS ---
EXAMINATION: MM DIAGNOSTIC DIGITAL BREAST TOMOSYNTHESIS, BILATERAL US BREAST LIMITED, BILATERAL MAMMOGRAPHY: CLINICAL INFORMATION: Bilateral episodic clear nipple discharge times several months. 53-year-old female. None elucidated on today's exam. Patient also due for bilateral screening. History of 2 stereotactic biopsies left breast, one with ADH status post excisional biopsy, the second benign. COMPARISON: Mammography: Most recently 05/30/2023, and dating back to 2017. ultrasound right breast 03/25/2020. TECHNIQUE: Digital breast tomosynthesis is performed in both the craniocaudal and mediolateral oblique views along with computer-aided detection (CAD). Synthesized 2D images are generated from the tomosynthesis. In addition to standard views, full-field bilateral MLO views were also obtained. This was followed by bilateral targeted retroareolar breast ultrasound. FINDINGS: There are scattered areas of fibroglandular density (ACR BI-RADS breast composition Category b). Post benign biopsy marker noted in the upper outer left breast, middle one third. There are approximately 3 calcifications seen anterior to the biopsy clip, which do not meet biopsy threshold. These are unchanged. No suspicious calcifications identified. Several bilateral rounded and oval tissue asymmetries are unchanged from numerous prior exams in the posterior one third of both breasts. Overall parenchymal pattern is unchanged. No suspicious masses, or areas of architectural distortion are identified. No retroareolar abnormalities are seen. No skin or axillary abnormalities. No findings on mammography to explain bilateral spontaneous nipple discharge. ULTRASOUND: CLINICAL INFORMATION: Bilateral clear nipple discharge episodically times several months. COMPARISON: Right breast ultrasound 03/25/2020. TECHNIQUE: Targeted sonographic evaluation was performed using a high frequency linear transducer. Attention was given to the retroareolar regions of both breasts. Selected archived documentation. FINDINGS: RIGHT BREAST: -There is mild duct ectasia in the retroareolar region, without evidence of intraductal mass or filling defects. No masses, abnormal shadowing, cystic abnormalities, or architectural abnormalities are identified. No sonographic explanation for nipple discharge. LEFT BREAST: -There is mild duct ectasia in the retroareolar region, without evidence of intraductal mass or filling defects. No masses, abnormal shadowing, cystic abnormalities, or architectural abnormalities are identified. No sonographic explanation for nipple discharge. MM/MM tomosynthesis diagnostic BI IMPRESSION: -There are no findings in either breast suspicious for malignancy. There are stable benign findings as described. -Mild duct ectasia in the retroareolar regions is present without evidence of intraductal mass. -No sonographic or mammographic explanation for episodic clear bilateral nipple discharge. Clinical management and follow-up recommended. If symptoms continue, MRI could be considered. -Otherwise, return to routine annual screening advised. OVERALL ASSESSMENT: Mammography: BI-RADS 2 - Benign Findings Ultrasound: BI-RADS 2 - Benign Findings RECOMMENDATION: 1. Patient should be managed based on the clinical impression. 2. Otherwise, routine annual screening mammography. This patient's information was entered into a reminder system with a target due date for their next mammogram.
== END 2024-03-16 10:58 | disposition home or self-care (01) ==
LOC: HO.MAMMO 10:57
PROVIDERS: PCP Internal Medicine; Visit Provider Obstetrics & Gynecology
DX: N64.52 Nipple discharge (principal)
CPT/HCPCS: 76642; 77062; 77066

== ENCOUNTER → 2024-03-16 11:00 | Outpatient (BNV) | payer OTHER, SELFPAY | PROVIDERS: PCP Internal Medicine; Visit Provider Radiology Diagnostic Radiology | DX: N64.52 Nipple discharge (principal) | CPT/HCPCS: 76642; 77062; 77066 ==

== ENCOUNTER 2024-03-26 11:46 | Outpatient (AMB) | payer OTHER, SELFPAY ==
[2024-03-26 11:52] VITALS: BP 118/84; BMI 34.7
--- NOTE | 2024-03-26 11:52 | MHC.OFFVIS ---
Vital Signs 03/26/24 11:52 Height 5 ft 3 in Weight 196 lb BMI 34.7 BP 118/84 Blood Pressure Location Lt brachial Position Sitting Intake Visit Reasons: Breast U/S results Allergies No Known Allergies Allergy (Verified 03/26/24 11:53) HPI Comments Details: The patient is presenting for follow-up regarding bilateral nipple discharge , bilateral, nonbloody and no associated masses on physical exam. Diagnostic bilateral mammogram and ultrasound were BI-RADS 2. Prolactin and hCG within normal PFSH Medical History Colon cancer screening HIV (human immunodeficiency virus infection) Obesity (BMI 30-39.9) GENNA I (cervical intraepithelial neoplasia I) Overweight (BMI 25.0-29.9) Tobacco abuse Insomnia GERD (gastroesophageal reflux disease) Anxiety and depression Atypical ductal hyperplasia, breast Asthma Migraine Surgical History Hx of colonoscopy History of laparoscopic cholecystectomy History of breast lump/mass excision History of breast surgery H/O LEEP History of tubal ligation History of umbilical hernia repair HIV (human immunodeficiency virus infection) Family History Father No problems noted. Mother No problems noted. Paternal Grandmother CVD (cardiovascular disease) Maternal Uncle Mouth cancer Maternal Grandmother Myocardial infarction CVD (cardiovascular disease) Gastric cancer Social History Housing: Apartment Alcohol intake: current Alcohol intake frequency: holidays/special occasions only Alcohol type: beer, wine and hard liquor Comment: 2 x a month 6 drinks Patient Tobacco Use Status: Current everyday Tobacco user Tobacco use type: Cigarette Cigarettes Per Day: 10 Years Smoked: since 16 years old e-Cigarette/Vaping Use: Never Used Second Hand Smoke Exposure: Yes service: No Current occupational status: unemployed Sexual orientation: Straight/Heterosexual Gender identity: Female Cognitive needs: No Hearing needs: No Vision needs: Yes Female Reproductive History Menstrual Age of Menarche: 13 Review of Systems Const All systems reviewed & are unremarkable except as noted in HPI and below Reports as per HPI and Reports no additional complaints GI Reports no additional complaints Reports no additional complaints Physical Exam Vital Signs: Last Vital Signs BP 118/84 03/26/24 11:52 BMI result Body Mass Index 34.7 Assessment & Plan Assessment & Plan (1) Nipple discharge: Code(s): N64.52 - Nipple discharge Category: Medical Plan: Discussed with the patient the workup done including BI-RADS 2 bilateral ultrasound and diagnostic mammogram, normal prolactin hCG. Instructions given the patient to call if nipple discharge is bloody, unilateral or any identification of a breast mass. All questions answered, the patient verbalized understood Coding Level of Care Code Est Pt Level 3 (85956) Diagnoses Nipple discharge N64.52
== END 2024-03-26 12:19 | disposition home or self-care (01) ==
PROVIDERS: PCP Internal Medicine; Visit Provider Obstetrics & Gynecology
DX: N64.52 Nipple discharge (principal)
CPT/HCPCS: 99213

== ENCOUNTER → 2024-03-26 11:46 | Outpatient (BNVA) | payer OTHER, SELFPAY | PROVIDERS: PCP Internal Medicine; Visit Provider Obstetrics & Gynecology | DX: N64.52 Nipple discharge (principal) | CPT/HCPCS: 99212 ==

== ENCOUNTER 2024-06-05 12:46 | Outpatient (REF) | payer OTHER, SELFPAY | END 2024-06-05 12:47 | disposition home or self-care (01) | LOC: HO.MAMMO 12:46 | PROVIDERS: PCP Internal Medicine; Visit Provider Internal Medicine | DX: Z13.89 Encounter for screening for other disorder (principal) ==

== ENCOUNTER 2024-07-01 11:47 | Outpatient (REF) | payer OTHER, SELFPAY ==
[2024-07-01 12:15] LABS: MANUAL DIFF FLAG NO
[2024-07-01 12:48] LABS: Basophils Absolute Auto 0.1 X10*3/uL (0.0-0.2); Basophils Percent Auto 1.1 % (0-2); Eosinophils Absolute Auto 0.2 X10*3/uL (0.0-0.4); Eosinophils Percent Auto 3.9 % (0-4); Hematocrit 42.6 % (37.0-47.0); Hemoglobin 14.2 g/dl (12.0-16.0); Imm Gran Abs Auto 0.02 X10*3/uL (0.00-0.03); Imm Gran Pct Auto 0.3 % (0.0-0.4); Lymphocytes Absolute Auto 2.1 X10*3/uL (1.2-4.9); Lymphocytes Percent Auto 34.1 % (20-40); Mean Corpuscular HGB Conc 33.3 g/dl (31.0-35.0); Mean Corpuscular Hemoglobin 30.1 pg (27.0-33.0); Mean Corpuscular Volume 90.4 fL (80.0-98.0); Mean Platelet Volume 10.3 fL (9.4-12.3); Monocytes Absolute Auto 0.5 X10*3/uL (0.1-1.2); Neutrophils Absolute Auto 3.3 x10*3/uL (2.0-8.3); Neutrophils Percent Auto 52.6 % (45-73); Platelet Count 285 X10*3/uL (160-400); Red Blood Count 4.71 X10*6/uL (4.20-5.50); Red Cell Distribution Width 12.9 % (11.0-16.0); White Blood Count 6.2 X10*3/uL (4.8-10.8)
[2024-07-01 13:25] LABS: Alanine Aminotransferase 14 U/L (0-31); Albumin Level 4.1 g/dL (3.5-5.0); Alkaline Phosphatase 44 U/L (39-117); Anion Gap 12 (12-20); Aspartate Amino Transferase 15 U/L (5-31); Bilirubin Total 0.3 mg/dL (0.0-1.0); Blood Urea Nitrogen 11 mg/dL (9-16); Calcium 9.6 mg/dL (8.4-10.2); Carbon Dioxide 25 mmol/L (22-29); Chloride 108 mmol/L (96-108); Cholesterol 180 mg/dL (<200); Estimated Glomerular Filt Rate > 60; Glucose Random 100 mg/dL (60-115); HDL Cholesterol 37 mg/dL (>40); LDL Cholesterol Calculated 117 mg/dL (<100); Potassium 4.8 mmol/L (3.3-5.1); Sodium 140 mmol/L (135-145); Total Protein 7.5 g/dL (6.5-8.0); Triglycerides 131 mg/dL (<150)
[2024-07-01 13:43] LABS: Free T4 (Free Thyroxine) 0.81 ng/dL (0.71-1.85); Thyroid Stimulating Hormone 1.52 uIU/mL (0.32-4.0); Vitamin D 25-OH Total 12.1 ng/mL (>30)
[2024-07-01 13:56] LABS: Folate 14.2 ng/mL (> or = 4.0); Vitamin B12 394 pg/mL (200-900)
[2024-07-02 13:09] LABS: HIV RNA PCR Qn Copies 81 copies/mL (NOT DETECTED); HIV RNA PCR Qn Log Copies 1.91 (NOT DETECTED)
[2024-07-05 17:38] LABS: Absolute CD3 Count 1337 cells/uL (840-3060); Absolute CD4 Count 561 cells/uL (490-1740); Absolute CD8 Count 805 cells/uL (180-1170); Absolute Lymphocytes 2300 cells/uL (850-3900); Percent CD3 Cells 58 % (57-85); Percent CD4 Cells 24 % (30-61); Percent CD8 Cells 35 % (12-42)
== END 2024-07-01 11:48 | disposition home or self-care (01) ==
LOC: HO.LAB 11:47
PROVIDERS: PCP Internal Medicine; Referring Provider Internal Medicine; Visit Provider Internal Medicine
DX: Z21 Asymptomatic human immunodeficiency virus [HIV] infection status (principal); K21.9 Gastro-esophageal reflux disease without esophagitis; E78.00 Pure hypercholesterolemia, unspecified
CPT/HCPCS: 36415; 80053; 80061; 82306; 82607; 82746; 84439; 84443; 85025; 86359; 86360; 87536

== ENCOUNTER 2024-07-08 11:40 | Outpatient (AMB) | payer OTHER, SELFPAY ==
[2024-07-08 12:00] VITALS: PULSE 81; O2SAT 99; BMI 35.6
--- NOTE | 2024-07-08 12:00 | A.OFFVIS_ITS ---
Vital Signs 07/08/24 12:00 Height 5 ft 3 in Weight 201 lb BMI 35.6 Pulse 81 Pulse Source Pulse Oximeter Pulse Oximetry (%) 99 Oxygen Delivery Method Room Air Intake Visit Reasons: 6 month HIV follow up labs Allergies No Known Allergies Allergy (Verified 07/13/24 11:29) HPI HPI 6 month HIV follow up labs: Details: She misses an occasional Biktarvy. CD4 count is 561 and viral load 81. She has no complaints and adherence was stressed. [facility] Medical History Colon cancer screening HIV (human immunodeficiency virus infection) Obesity (BMI 30-39.9) GENNA I (cervical intraepithelial neoplasia I) Overweight (BMI 25.0-29.9) Tobacco abuse Insomnia GERD (gastroesophageal reflux disease) Anxiety and depression Atypical ductal hyperplasia, breast Asthma Migraine Surgical History Hx of colonoscopy History of laparoscopic cholecystectomy History of breast lump/mass excision History of breast surgery H/O LEEP History of tubal ligation History of umbilical hernia repair HIV (human immunodeficiency virus infection) Family History Father No problems noted. Mother No problems noted. Paternal Grandmother CVD (cardiovascular disease) Maternal Uncle Mouth cancer Maternal Grandmother Myocardial infarction CVD (cardiovascular disease) Gastric cancer Social History Housing: Apartment Alcohol intake: current Alcohol intake frequency: holidays/special occasions only Alcohol type: beer, wine and hard liquor Comment: 2 x a month 6 drinks Patient Tobacco Use Status: Current everyday Tobacco user Tobacco use type: Cigarette Cigarette Packs Per Day: 0.5 Cigarettes Per Day: 10 Years Smoked: since 16 years old e-Cigarette/Vaping Use: Never Used Second Hand Smoke Exposure: Yes service: No Current occupational status: unemployed Sexual orientation: Straight/Heterosexual Gender identity: Female Cognitive needs: No Hearing needs: No Vision needs: Yes Female Reproductive History Menstrual Age of Menarche: 13 Review of Systems Const All systems reviewed & are unremarkable except as noted in HPI and below Physical Exam Vital Signs: Last Vital Signs Pulse 81 07/08/24 12:00 Pulse Ox 99 07/08/24 12:00 Oxygen Delivery Method Room Air 07/08/24 12:00 BMI result Body Mass Index 35.6 Const General: cooperative Orientation/consciousness: patient oriented x3 HEENT Head: Yes normal to inspection Mouth: Normal oral and palatal mucosa present Eyes General: appearance normal, both eyes and all related structures Pupils: Equal, round and reactive pupils present Resp Effort & Inspection: normal respiratory effort Cardio Rate: regular rate Rhythm: regular rhythm GI Palpation (GI): Soft to palpation and nontender General: Yes no CVA tenderness Back/Spine/Pelvis Back: no CVA tenderness Skin General skin exam: no rashes or lesions noted Neuro General: patient oriented x3 Cranial nerves: Yes CN's II-XII intact bilaterally and Yes Equal, round and reactive pupils present Extrem General: Yes normal to inspection Psych Appearance: grossly normal Assessment & Plan Assessment & Plan (1) HIV (human immunodeficiency virus infection): Comment: She has been doing well She has no complaints She is taking Biktarvy and is up to date with health care she says Her CD4 count is good but viral load slightly elevated. Code(s): B20 - Human immunodeficiency virus [HIV] disease Category: Surgical Qualifiers: HIV symptom status: asymptomatic, with no history of HIV-related illness Qualified Code(s): Z21 - Asymptomatic human immunodeficiency virus [HIV] infection status Plan: Adherence stressed. Check CD4 count and viral load in six months. Pap with rectal Pap. See in six months. Coding Level of Care Code Est Pt Level 3 (68711) Diagnoses Asymptomatic HIV infection, with no history of HIV-related illness Z21 HIV symptom status: asymptomatic, with no history of HIV-related illness
== END 2024-07-08 13:09 | disposition home or self-care (01) ==
LOC: HO.HID 11:40
PROVIDERS: PCP Internal Medicine; Visit Provider Internal Medicine
DX: Z21 Asymptomatic human immunodeficiency virus [HIV] infection status (principal)
CPT/HCPCS: 99213

== ENCOUNTER → 2024-07-08 11:40 | Outpatient (BNVA) | payer OTHER, SELFPAY | PROVIDERS: PCP Internal Medicine; Visit Provider Internal Medicine | DX: Z01.419 Encounter for gynecological examination (general) (routine) without abnormal findings (principal); Z21 Asymptomatic human immunodeficiency virus [HIV] infection status | CPT/HCPCS: 99212; 99396 ==

== ENCOUNTER 2024-07-08 12:38 | Outpatient (AMB) | payer OTHER, SELFPAY ==
--- NOTE | 2024-07-08 12:50 | MHC.OFFVIS ---
Intake Visit Reasons: CONTINUOUS CONVEYOR SCREEN DRIER annual exam Trolley Cleaner Required: Yes Trolley Cleaner Language: Academic Associate Name: Mercedes Review Appraiser: Review Appraiser Present (Mercedes) Allergies No Known Allergies Allergy (Verified 07/08/24 12:01) HPI Comments Details: Presenting for annual exam. No complaints. Last Pap/HPV was negative in 06/22 Last Mammogram was BI-RADS 2 in 03/23 Last Colonoscopy was done in 08/22, the recommendation was to repeat in 1-2 years [facility] Medical History Colon cancer screening HIV (human immunodeficiency virus infection) Obesity (BMI 30-39.9) GENNA I (cervical intraepithelial neoplasia I) Overweight (BMI 25.0-29.9) Tobacco abuse Insomnia GERD (gastroesophageal reflux disease) Anxiety and depression Atypical ductal hyperplasia, breast Asthma Migraine Surgical History Hx of colonoscopy History of laparoscopic cholecystectomy History of breast lump/mass excision History of breast surgery H/O LEEP History of tubal ligation History of umbilical hernia repair HIV (human immunodeficiency virus infection) Family History Father No problems noted. Mother No problems noted. Paternal Grandmother CVD (cardiovascular disease) Maternal Uncle Mouth cancer Maternal Grandmother Myocardial infarction CVD (cardiovascular disease) Gastric cancer Social History Housing: Apartment Alcohol intake: current Alcohol intake frequency: holidays/special occasions only Alcohol type: beer, wine and hard liquor Comment: 2 x a month 6 drinks Patient Tobacco Use Status: Current everyday Tobacco user Tobacco use type: Cigarette Cigarettes Per Day: 10 Years Smoked: since 16 years old e-Cigarette/Vaping Use: Never Used Second Hand Smoke Exposure: Yes service: No Current occupational status: unemployed Sexual orientation: Straight/Heterosexual Gender identity: Female Cognitive needs: No Hearing needs: No Vision needs: Yes Female Reproductive History Menstrual Age of Menarche: 13 control method: permanent sterilization Permanent Sterilization: BTL Total pregnancies: 4 Full term: 3 Number of Living Children: 3 Ab spontaneous: 1 Date of last pap smear: 06/04/23 (neg pap and hpv) History of abnormal pap smear: Yes Date of Mammogram: 03/16/24 (Birad 2) Other: Colonoscopy 08/08/23 Review of Systems Const All systems reviewed & are unremarkable except as noted in HPI and below Card Reports as per HPI Resp Reports as per HPI GI Reports as per HPI and Reports no additional complaints Reports as per HPI Physical Exam Const General: cooperative, healthy appearing and comfortable Chest Chest palpation & inspection: normal inspection of the chest and normal palpation of entire chest wall Breast/axilla inspection: normal inspection of the breasts and normal inspection of the axillae Breast/axilla palpation: normal palpation of the breasts, normal palpation of the axillae and no axillary lymphadenopathy Resp Effort & Inspection: normal respiratory effort Auscultation: clear to auscultation bilaterally Percussion: percussion normal Cardio Palpation: normal PMI Rate: regular rate Rhythm: regular rhythm Heart sounds: no murmurs and no rubs Peripheral pulses: Peripheral pulses 2+ throughout GI Inspection: Yes normal to inspection Palpation (GI): Soft to palpation, nontender, no guarding, not rigid and No hepatosplenomegaly present Percussion: Yes normal to percussion Auscultation: normal bowel sounds Rectal Exam - Female: deferred General: Yes bladder normal to palpation External Female Exam: No lesion Speculum Exam - Vagina: normal appearance of the vagina, normal palpation, normal vaginal discharge and not erythematous Speculum Exam - Cervix: normal appearance of the cervix and normal palpation Bimanual exam- vagina & uterus: normal bimanual exam, normal palpation, uterine size normal, bladder normal to palpation, consistency normal and normal palpation Bimanual Exam- Adnexa, other: normal adnexae, no masses and no tenderness Assessment & Plan Assessment & Plan (1) Well woman exam: Code(s): Z01.419 - Encounter for gynecological examination (general) (routine) without abnormal findings Category: Medical Plan: Co testing not indicated this year. Counseled the patient about the recommended dietary allowance of 1200 mg of Calcium & 600 IU of vitamin D. Instructions given to patient to schedule next screening Mammogram in 03/24. The patient is in the process of scheduling an appointment with GI for a repeat screening colonoscopy . The patient was instructed to perform monthly self-breast exams and schedule annual exam in a year. All questions answered and the patient verbalized understanding. Coding Level of Care Code Est Pt Prev Care 40-64y(03702) Diagnoses Well woman exam Z01.419
== END 2024-07-08 13:14 | disposition home or self-care (01) ==
PROVIDERS: PCP Internal Medicine; Visit Provider Obstetrics & Gynecology
DX: Z01.419 Encounter for gynecological examination (general) (routine) without abnormal findings (principal)
CPT/HCPCS: 99396

== ENCOUNTER 2024-07-13 10:58 | Outpatient (AMB) | payer OTHER, SELFPAY ==
--- NOTE | 2024-07-13 11:28 | MHC.PC.OV ---
Vital Signs 07/13/24 11:29 Height 5 ft 3 in Weight 199 lb 8 oz BMI 35.3 BP 110/64 Blood Pressure Location Lt brachial Position Sitting Intake Visit Reasons: gerd Intake Note: Patient is here to follow up on GERD. Booking Agent Required: Yes Booking Agent Language: Coating Mixer Name: Jessica ([id number]) Information Interpreted: non-clinical & clinical Recreational Counselor: Not Required per policy Accompanied by: Self / Same As Patient Allergies No Known Allergies Allergy (Verified 07/13/24 11:29) Tobacco use date assessed: 07/13/24 Dental Screening Dental Screen Date: 01/09/24 HPI gerd HPI Details 53-year-old obese female smoker with GERD asthma HIV coming in for follow-up. Last seen in December 2023. Mammogram is due. Colonoscopy was advised to repeat. Patient was just recently seen by the Infectious Disease. Patient was recently seen by the gynecology also in February having ultrasound of the breast advised to monitor. This was done in February 2024. Patient has also followed up by the surgeon having had cyst on the left axilla. [facility] Medical History Colon cancer screening HIV (human immunodeficiency virus infection) Obesity (BMI 30-39.9) GENNA I (cervical intraepithelial neoplasia I) Overweight (BMI 25.0-29.9) Tobacco abuse Insomnia GERD (gastroesophageal reflux disease) Anxiety and depression Atypical ductal hyperplasia, breast Asthma Migraine Surgical History Hx of colonoscopy History of laparoscopic cholecystectomy History of breast lump/mass excision History of breast surgery H/O LEEP History of tubal ligation History of umbilical hernia repair HIV (human immunodeficiency virus infection) Family History Father No problems noted. Mother No problems noted. Paternal Grandmother CVD (cardiovascular disease) Maternal Uncle Mouth cancer Maternal Grandmother Myocardial infarction CVD (cardiovascular disease) Gastric cancer Social History Housing: Apartment Alcohol intake: current Alcohol intake frequency: holidays/special occasions only Alcohol type: beer, wine and hard liquor Comment: 2 x a month 6 drinks Patient Tobacco Use Status: Current everyday Tobacco user Tobacco use type: Cigarette Cigarette Packs Per Day: 0.5 Cigarettes Per Day: 10 Years Smoked: since 16 years old e-Cigarette/Vaping Use: Never Used Second Hand Smoke Exposure: Yes service: No Current occupational status: unemployed Sexual orientation: Straight/Heterosexual Gender identity: Female Cognitive needs: No Hearing needs: No Vision needs: Yes Female Reproductive History Menstrual Age of Menarche: 13 Questionnaire Thrive Questionnaire Date Thrive assessed: 01/09/24 Are you currently unemployed and looking for a job?: I choose not to answer this question ARIS-7 AMB Questionnaire ARIS-7 Date ARIS - 7 assessed: 01/09/24 Source: Developed by Drs. Anil Witt, Penelope Crystal, Hernán Melgar and colleagues, with an educational elana from [employer]. Physical exam (Primary Care) Vital Signs: Last Vital Signs BP 110/64 07/13/24 11:29 BMI result Body Mass Index 35.3 Tobacco/Smoking Status: Tobacco use Status Tobacco use date assessed 07/13/24 07/13/24 11:41 Patient Tobacco Use Status Current everyday Tobacco 07/13/24 11:41 Tobacco use type Cigarette 07/13/24 11:41 e-Cigarette/Vaping Use Never Used 07/13/24 11:41 Thrive Assessment: Date of Thrive Assessment Date Thrive assessed 01/09/24 07/13/24 11:41 Const General: alert; No acute distress Eyes Conjunctivae: conjunctivae normal Resp Auscultation: clear to auscultation bilaterally Cardio Rate: regular rate Rhythm: regular rhythm GI Inspection: Yes normal to inspection Extrem General: Yes normal to inspection and No edema Office Procedures Flu Questionnaire Does the patient have a severe egg allergy?: No Does the patient have severe life threatening allergies?: No Does the patient have a fever or illness today?: No Has the patient ever had Guillain-[place] Syndrome?: No Has the patient ever had any past reaction to a flu shot?: No Immunizations Fluarix Triv [id number] (PF) 45 mcg (15 mcg x 3)/0.5 mL IM syringe Performing Provider: Chaparro Luevano MD [facility] [place] [facility] Administered by: Brea Galloway LPN on 07/13/24 11:55 Dose Route Admin Location Dispensed Lot Number Expiration Date NDC Fire Sprinkler Inspector 0.5 mL IM Left Deltoid 0.5 mL [id number] 03/29/25 32560-042-37 [employer] VIS Given Date VIS Provided VIS Publication Date 07/13/24 Single Vaccine 21 Eligibility Eligibility Date Funding Source Not VFC Eligible 07/13/24 Private Coding Level of Care Code Est Pt Level 4 (67102) Diagnoses Impaired glucose tolerance R73.02 Nipple discharge N64.52 Tubulovillous adenoma D36.9 Mild intermittent asthma without complication J45.20 Asthma severity: mild Asthma persistence: intermittent Asthma complication type: uncomplicated Tobacco abuse Z72.0 Gastroesophageal reflux disease without esophagitis K21.9 Esophagitis presence: without esophagitis Asymptomatic HIV infection, with no history of HIV-related illness Z21 HIV symptom status: asymptomatic, with no history of HIV-related illness Nummular eczema L30.0 Vision changes H53.9 Assessment & Plan Assessment & Plan (1) Impaired glucose tolerance: Code(s): R73.02 - Impaired glucose tolerance (oral) Category: Medical Plan: Decrease the amount of carbohydrate intake, pasta, bread, rice and potatoes are all sugar and that is aside from all the sweet stuff, remember that fruits are good but they are Sweet also. (2) Nipple discharge: Code(s): N64.52 - Nipple discharge Category: Medical Plan: Patient is being followed up by gynecology (3) Tubulovillous adenoma: Code(s): D36.9 - Benign neoplasm, unspecified site Category: Medical Plan: Patient is reminded about repeat colonoscopy (4) Asthma: Code(s): J45.909 - Unspecified asthma, uncomplicated Category: Medical Qualifiers: Asthma severity: mild Asthma persistence: intermittent Asthma complication type: uncomplicated Qualified Code(s): J45.20 - Mild intermittent asthma, uncomplicated Plan: Continue with albuterol inhaler. Patient is advised to stop smoking! (5) Tobacco abuse: Code(s): Z72.0 - Tobacco use Category: Medical Plan: Patient is strongly advised to stop smoking (6) GERD (gastroesophageal reflux disease): Code(s): K21.9 - Gastro-esophageal reflux disease without esophagitis Category: Medical Qualifiers: Esophagitis presence: without esophagitis Qualified Code(s): K21.9 - Gastro-esophageal reflux disease without esophagitis Plan: Patient is strongly advised to stop smoking! (7) HIV (human immunodeficiency virus infection): Comment: She has been doing well She has no complaints She is taking Biktarvy and is up to date with health care she says Her CD4 count and viral load are appropriate Code(s): B20 - Human immunodeficiency virus [HIV] disease Category: Surgical Qualifiers: HIV symptom status: asymptomatic, with no history of HIV-related illness Qualified Code(s): Z21 - Asymptomatic human immunodeficiency virus [HIV] infection status Plan: Continue with Infectious Disease follow-up as well as the medication called Biktarvy (8) Nummular eczema: Code(s): L30.0 - Nummular dermatitis Category: Medical Plan: Patient had rash in the hand and will send in steroid cream (9) Vision changes: Code(s): H53.9 - Unspecified visual disturbance Category: Medical Plan: Referral to Ophthalmology Orders: Orders Influenza [id number] Immunization Today Z23 - Encounter for immunization Referrals Dermatology Referral L30.0 - Nummular dermatitis Ophthalmology Referral H53.9 - Unspecified visual disturbance
[2024-07-13 11:29] VITALS: BP 110/64; BMI 35.3
== END 2024-07-13 12:21 | disposition home or self-care (01) ==
PROVIDERS: PCP Internal Medicine; Visit Provider Internal Medicine
DX: R73.02 Impaired glucose tolerance (oral) (principal); N64.52 Nipple discharge; D36.9 Benign neoplasm, unspecified site; Z21 Asymptomatic human immunodeficiency virus [HIV] infection status; J45.20 Mild intermittent asthma, uncomplicated; Z72.0 Tobacco use; K21.9 Gastro-esophageal reflux disease without esophagitis; L30.0 Nummular dermatitis; H53.9 Unspecified visual disturbance

== ENCOUNTER → 2024-07-13 10:58 | Outpatient (BNVA) | payer OTHER, SELFPAY | PROVIDERS: PCP Internal Medicine; Visit Provider Internal Medicine | DX: Z23 Encounter for immunization (principal); K21.9 Gastro-esophageal reflux disease without esophagitis; R73.02 Impaired glucose tolerance (oral); N64.52 Nipple discharge; D36.9 Benign neoplasm, unspecified site; J45.20 Mild intermittent asthma, uncomplicated; L30.0 Nummular dermatitis; H53.9 Unspecified visual disturbance; Z72.0 Tobacco use; Z21 Asymptomatic human immunodeficiency virus [HIV] infection status | CPT/HCPCS: 90471; 90656; 99212 ==

== ENCOUNTER 2024-09-03 15:14 | Outpatient (REF) | payer OTHER, SELFPAY | END 2024-09-03 15:15 | disposition home or self-care (01) | LOC: HO.LNP 15:14 | PROVIDERS: PCP Internal Medicine; Visit Provider Advanced Practice Midwife | DX: Z11.51 Encounter for screening for human papillomavirus (HPV) (principal); Z21 Asymptomatic human immunodeficiency virus [HIV] infection status | CPT/HCPCS: 88112; 88175; 99212 ==

== ENCOUNTER 2024-09-03 15:14 | Outpatient (AMB) | payer OTHER, SELFPAY ==
--- NOTE | 2024-09-03 15:22 | A.OFFVIS_ITS ---
Vital Signs 09/03/24 15:25 BP 100/66 Intake Visit Reasons: Rectal pap Intake Note: colpo mitzy 1-2 leep mitzy 1-2 ascus colpo mitzy 1 ascus colpo mitzy 1 leep mitzy 1 12/05 lgsil 07/11 lgsil 10/12 colpo mitzy 1-2 01/10 leep mitzy 1-2 05/12 lgsil 07/12 colpo mitzy 1 Professor In Family Studies Required: Yes Professor In Family Studies Language: Bad Work Gatherer Name: Mercedes Information Interpreted: non-clinical & clinical Remedial Project Manager: Remedial Project Manager Present (Mercedes) Allergies No Known Allergies Allergy (Verified 09/03/24 15:24) Is last menstrual period known: Yes HPI Comments Details: Patient is referred for rectal Pap smear today. She has no concerns. History of HIV. [facility] Medical History Colon cancer screening HIV (human immunodeficiency virus infection) Obesity (BMI 30-39.9) MITZY I (cervical intraepithelial neoplasia I) Overweight (BMI 25.0-29.9) Tobacco abuse Insomnia GERD (gastroesophageal reflux disease) Anxiety and depression Atypical ductal hyperplasia, breast Asthma Migraine Surgical History Hx of colonoscopy History of laparoscopic cholecystectomy History of breast lump/mass excision History of breast surgery H/O LEEP History of tubal ligation History of umbilical hernia repair HIV (human immunodeficiency virus infection) Family History Father No problems noted. Mother No problems noted. Paternal Grandmother CVD (cardiovascular disease) Maternal Uncle Mouth cancer Maternal Grandmother Myocardial infarction CVD (cardiovascular disease) Gastric cancer Social History Housing: Apartment Alcohol intake: current Alcohol intake frequency: holidays/special occasions only Alcohol type: beer, wine and hard liquor Comment: 2 x a month 6 drinks Patient Tobacco Use Status: Current everyday Tobacco user Tobacco use type: Cigarette Cigarette Packs Per Day: 0.5 Cigarettes Per Day: 10 Years Smoked: since 16 years old e-Cigarette/Vaping Use: Never Used Second Hand Smoke Exposure: Yes service: No Current occupational status: unemployed Sexual orientation: Straight/Heterosexual Gender identity: Female Cognitive needs: No Hearing needs: No Vision needs: Yes Female Reproductive History Menstrual Age of Menarche: 13 Date of last pap smear: 06/04/23 (neg pap and hpv) History of abnormal pap smear: Yes (see intake note) Review of Systems Const All systems reviewed & are unremarkable except as noted in HPI and below Endo Reports no additional complaints Physical Exam Vital Signs: Last Vital Signs BP 100/66 09/03/24 15:25 Const General: cooperative, healthy appearing and no acute distress GI Rectal Exam - Female: visual inspection normal, normal sphincter tone and other (Rectal Pap completed) Psych Appearance: well kempt Attitude: cooperative Thought process: Normal thought process present Assessment & Plan Assessment & Plan (1) Encounter for screening for human papillomavirus (HPV): Code(s): Z11.51 - Encounter for screening for human papillomavirus (HPV) (2) HIV (human immunodeficiency virus infection): Code(s): B20 - Human immunodeficiency virus [HIV] disease Category: Surgical Qualifiers: HIV symptom status: asymptomatic, with no history of HIV-related illness Qualified Code(s): Z21 - Asymptomatic human immunodeficiency virus [HIV] infection status Plan Discussed: Annual screening for rectal Pap completed today. Follow up pending results. Has a annual scheduled for 06/19/2025. The patient expressed understanding and agreement with the plan of care. All of her questions and concerns were addressed to the best of my ability. This note is constructed using voice recognition software. While every effort has been made to ensure accuracy, pack room operator errors may have been included. Orders: Orders Pap Smear Today Z21 - Asymptomatic human immunodeficiency virus [HIV] infection status HPV High risk Today Z21 - Asymptomatic human immunodeficiency virus [HIV] infection status Coding Level of Care Code Est Pt Level 3 (97325) Diagnoses Encounter for screening for human papillomavirus (HPV) Z11.51 Asymptomatic HIV infection, with no history of HIV-related illness Z21 HIV symptom status: asymptomatic, with no history of HIV-related illness
[2024-09-03 15:25] VITALS: BP 100/66
== END 2024-09-03 16:23 | disposition home or self-care (01) ==
PROVIDERS: PCP Internal Medicine; Visit Provider Advanced Practice Midwife
DX: Z11.51 Encounter for screening for human papillomavirus (HPV) (principal); Z21 Asymptomatic human immunodeficiency virus [HIV] infection status
CPT/HCPCS: 99213

== ENCOUNTER 2024-10-23 12:56 | Outpatient (AMB) | payer OTHER, SELFPAY ==
--- NOTE | 2024-10-23 13:05 | MHC.PC.OV ---
Vital Signs 10/23/24 13:08 Height 5 ft 3 in Weight 202 lb 4 oz BMI 35.8 BP 118/72 Blood Pressure Location Lt brachial Position Sitting Pulse 75 Pulse Source Pulse Oximeter Temp 97.1 F Temp Source Skin Pulse Oximetry (%) 92 Oxygen Delivery Method Room Air Intake Visit Reasons: 3 Month F/U Intake Note: Patient is here to follow up on Asthma, GERD. Hospital Pharmacy Director Required: Yes Hospital Pharmacy Director Language: Tajik Information Interpreted: non-clinical & clinical Director Equipment: Not Required per policy Accompanied by: Self / Same As Patient Allergies No Known Allergies Allergy (Verified 10/23/24 13:07) Tobacco use date assessed: 10/23/24 Dental Screening Dental Screen Date: 10/23/24 Did you have a dental visit in the last 12 months?: Yes Did you have a dental problem in the last 6 months where you did not have access to dental care?: No Was dental information given to patient?: Patient has dentist HPI 3 Month F/U HPI Details The patient is a 54-year-old female presenting with requests for medication management, asthma follow-up, and dermatological consultation. Regarding her asthma, she reports intermittent use of an albuterol inhaler, approximately three times monthly, primarily due to exertional symptoms in a three-level house. The need for the inhaler arises when physically active, and she seeks clarification on the appropriate inhaler to use, with preference for the red inhaler identified as ProAir. She also mentioned ongoing management of inquiries regarding medication usage, specifically addressing the absence of contraindications like thyroid cancer and the role of insurance in accessing medications. The patient is in the perimenopausal phase, experiencing irregular menstruation and associated weight gain. She indicates that smoking half a pack per day impacts her health endeavors. Additionally, there is a concern regarding a dermatological condition for which dermal cream was previously prescribed, and the patient sought referral to a numberer and wirer. She conveyed the difficulty in scheduling dermatologic care, leading to a delay in seeing a specialist. The patient acknowledges the impact of weight and lifestyle factors, including cessation of cigarette use and increased physical activity. FORMERLY [facility], [facility]–1983 Medical History Colon cancer screening HIV (human immunodeficiency virus infection) Obesity (BMI 30-39.9) GENNA I (cervical intraepithelial neoplasia I) Overweight (BMI 25.0-29.9) Tobacco abuse Insomnia GERD (gastroesophageal reflux disease) Anxiety and depression Atypical ductal hyperplasia, breast Asthma Migraine Surgical History Hx of colonoscopy History of laparoscopic cholecystectomy History of breast lump/mass excision History of breast surgery H/O LEEP History of tubal ligation History of umbilical hernia repair HIV (human immunodeficiency virus infection) Family History Father No problems noted. Mother No problems noted. Paternal Grandmother CVD (cardiovascular disease) Maternal Uncle Mouth cancer Maternal Grandmother Myocardial infarction CVD (cardiovascular disease) Gastric cancer Social History Housing: Apartment Alcohol intake: current Alcohol intake frequency: holidays/special occasions only Alcohol type: beer, wine and hard liquor Comment: 2 x a month 6 drinks Patient Tobacco Use Status: Former Tobacco user Tobacco use type: Cigarette Cigarette Packs Per Day: 0.5 Cigarettes Per Day: 10 Years Smoked: since 16 years old Packs Per Year: 0 Packs per year/per ci.00 e-Cigarette/Vaping Use: Never Used Second Hand Smoke Exposure: Yes service: No Current occupational status: unemployed Sexual orientation: Straight/Heterosexual Gender identity: Female Cognitive needs: No Hearing needs: No Vision needs: Yes Female Reproductive History Menstrual Age of Menarche: 13 Questionnaire PHQ-9 Over the last 2 weeks, how often have you been bothered by any of the following problems? 1. Little interest or pleasure in doing things: not at all 2. Feeling down, depressed, or hopeless: not at all 3. Trouble falling or staying asleep, or sleeping too much: not at all 4. Feeling tired or having little energy: not at all 5. Poor appetite or overeating: not at all 6. Feeling bad about yourself - or that you are a failure or have let yourself or your family down: not at all 7. Trouble concentrating on things, such as reading the newspaper or watching television: not at all 8. Moving or speaking so slowly that other people could have noticed. Or the opposite - being so fidgety or restless that you have been moving around a lot more than usual: not at all 9. Thoughts that you would be better off or of hurting yourself in some way: not at all Total score: 0 Depression Screening Interpretation: Negative Depression Screening Done: Yes Source: Developed by Drs. Anil Witt, Penelope Crystal, Hernán Melgar and colleagues, with an educational elana from [employer]. Thrive Questionnaire Date Thrive assessed: 10/23/24 I am a: Patient What is your living situation today?: I have a steady place to live Within the past 12 months, did the food you bought not last and you didn't have the money to get more?: Never true Within the past 12 months, did you worry whether your food would run out before you got money to buy more?: Never true Do you have trouble paying for medicines?: No Do you have trouble getting transportation to medical appointments?: No Do you have trouble paying your heating and electricity bill?: No Do you have trouble taking care of your child, family member or friend?: No Do you have trouble with day-to-day activities such as bathing, preparing meals, shopping, managing finances, etc.?: No Are you currently unemployed and looking for a job?: No Are you interested in more education?: No Please select the resources that you would like help with: None Currently or been in a relationship where the following occur: No concerns reported THRIVE Score: 0 AUDIT C Alcohol Use Questionnaire (AUDIT-C) 1. How often do you have a drink containing alcohol?: Monthly or less 2. How many drinks containing alcohol do you have on a typical day when you are drinking?: 1 or 2 Total Score: 1 ARIS-7 AMB Questionnaire RAIS-7 Date ARIS - 7 assessed: 10/23/24 Feeling nervous, anxious, or on edge: 0 = Not at all Not being able to stop or control worryin = Not at all Worrying too much about different things: 0 = Not at all Trouble relaxin = Not at all Being so restless that it is hard to sit still: 0 = Not at all Becoming easily annoyed or irritable: 0 = Not at all Feeling afraid as if something awful might happen: 0 = Not at all Total ARIS-7 score (0-4 normal; 5-9 mild; 10-14 moderate; 15-21 severe): 0 Source: Developed by Drs. Anil Witt, Penelope Crystal, Hernán Melgar and colleagues, with an educational elana from [employer]. Physical exam (Primary Care) Vital Signs: Last Vital Signs Temp 97.1 F 10/23/24 13:08 Pulse 75 10/23/24 13:08 BP 118/72 10/23/24 13:08 Pulse Ox 92 10/23/24 13:08 Oxygen Delivery Method Room Air 10/23/24 13:08 BMI result Body Mass Index 35.8 Tobacco/Smoking Status: Tobacco use Status Tobacco use date assessed 10/23/24 10/23/24 13:31 Patient Tobacco Use Status Former Tobacco user 10/23/24 13:31 Tobacco use type Cigarette 10/23/24 13:31 e-Cigarette/Vaping Use Never Used 10/23/24 13:31 PHQ-9: PHQ-9 Score PHQ-9: Total score 0 10/23/24 13:31 Depression Screening Interpretation: Negative Thrive Assessment: Date of Thrive Assessment Date Thrive assessed 10/23/24 10/23/24 13:31 Currently or been in a relationship where the following occur: No concerns reported Const General: alert; No acute distress Eyes Conjunctivae: conjunctivae normal Resp Auscultation: clear to auscultation bilaterally Cardio Rate: regular rate Rhythm: regular rhythm GI Inspection: Yes normal to inspection Extrem General: Yes normal to inspection and No edema Coding Level of Care Code Est Pt Level 4 (94585) Diagnoses Obesity (BMI 30-39.9) E66.9 Tobacco abuse Z72.0 Gastroesophageal reflux disease without esophagitis K21.9 Esophagitis presence: without esophagitis Asymptomatic HIV infection, with no history of HIV-related illness Z21 HIV symptom status: asymptomatic, with no history of HIV-related illness Mild intermittent asthma without complication J45.20 Asthma severity: mild Asthma persistence: intermittent Asthma complication type: uncomplicated Assessment & Plan Assessment & Plan (1) Obesity (BMI 30-39.9): Code(s): E66.9 - Obesity, unspecified Category: Medical (2) Tobacco abuse: Code(s): Z72.0 - Tobacco use Category: Medical (3) GERD (gastroesophageal reflux disease): Code(s): K21.9 - Gastro-esophageal reflux disease without esophagitis Category: Medical Qualifiers: Esophagitis presence: without esophagitis Qualified Code(s): K21.9 - Gastro-esophageal reflux disease without esophagitis (4) HIV (human immunodeficiency virus infection): Code(s): B20 - Human immunodeficiency virus [HIV] disease Category: Surgical Qualifiers: HIV symptom status: asymptomatic, with no history of HIV-related illness Qualified Code(s): Z21 - Asymptomatic human immunodeficiency virus [HIV] infection status (5) Asthma: Code(s): J45.909 - Unspecified asthma, uncomplicated Category: Medical Qualifiers: Asthma severity: mild Asthma persistence: intermittent Asthma complication type: uncomplicated Qualified Code(s): J45.20 - Mild intermittent asthma, uncomplicated Plan - Continue use of albuterol inhaler as needed. Complete prescription for current inhaler type preferred by the patient. - Tie Layer on smoking cessation and provide resources for smoking cessation programs. - Discussed Typecontinue current regimen with understanding of insurance limitations for medication access. Referral completed as agreed. - Monitor perimenopausal symptoms and discuss lifestyle modifications to assist with symptomatic management. - Resend dermatological referral with an updated contact number, ensure follow-up on dermatology visit scheduling. - Recommend weight management strategies and regular physical activity. - Plan complete physical examination in December, with focus on weight, menopausal changes, and diabetes management. Orders: Orders Complete Blood Count Auto Diff 3 Months R73.02 - Impaired glucose tolerance (oral) Free T4 (Free Thyroxine) 3 Months R73.02 - Impaired glucose tolerance (oral) Vitamin B12 and Folate 3 Months R73.02 - Impaired glucose tolerance (oral) Vitamin D 25-OH Total 3 Months R73.02 - Impaired glucose tolerance (oral) Comprehensive Met. Panel 3 Months R73.02 - Impaired glucose tolerance (oral) Hemoglobin A1c 3 Months R73.02 - Impaired glucose tolerance (oral) Thyroid Stimulating Hormone 3 Months R73.02 - Impaired glucose tolerance (oral) Lipid Panel 3 Months E78.00 - Pure hypercholesterolemia, unspecified, R73.02 - Impaired glucose tolerance (oral) Referrals Medical Weight Management Referral E66.9 - Obesity, unspecified Medications: New albuterol sulfate 90 mcg/actuation (ProAir RespiClick) 2 inhalations inhalation QID 1 ea 0RF J45.20 - Mild intermittent asthma, uncomplicated tirzepatide (weight loss) (Zepbound) for 4 weeks 2.5 mg (0.5 mL) subcut QWEEK 2 mL 2RF E66.9 - Obesity, unspecified
[2024-10-23 13:08] VITALS: BP 118/72; PULSE 75; TEMP 36.2; O2SAT 92; BMI 35.8
== END 2024-10-23 14:13 | disposition home or self-care (01) ==
PROVIDERS: PCP Internal Medicine; Visit Provider Internal Medicine
DX: K21.9 Gastro-esophageal reflux disease without esophagitis (principal); E66.9 Obesity, unspecified; Z68.35 Body mass index [BMI] 35.0-35.9, adult; Z21 Asymptomatic human immunodeficiency virus [HIV] infection status; Z72.0 Tobacco use; J45.20 Mild intermittent asthma, uncomplicated

== ENCOUNTER → 2024-10-23 12:56 | Outpatient (BNVA) | payer OTHER, SELFPAY | PROVIDERS: PCP Internal Medicine; Visit Provider Internal Medicine | DX: E66.9 Obesity, unspecified (principal); K21.9 Gastro-esophageal reflux disease without esophagitis; Z21 Asymptomatic human immunodeficiency virus [HIV] infection status; J45.20 Mild intermittent asthma, uncomplicated; Z72.0 Tobacco use | CPT/HCPCS: 99212 ==

== ENCOUNTER → 2024-11-03 13:21 | Outpatient (BNVA) | payer OTHER, SELFPAY | PROVIDERS: PCP Internal Medicine; Visit Provider Surgery ==

== ENCOUNTER 2024-11-10 08:07 | Outpatient (AMB) | payer OTHER, SELFPAY ==
--- NOTE | 2024-11-10 10:10 | A.OFFVIS_ITS ---
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* Job Site Supervisor Required: Yes Job Site Supervisor Services: Job Site Supervisor Present Information Interpreted: clinical only Allergies No Known Allergies Allergy (Verified 11/10/24 10:12) Medication List - Last Reconciled 11/10/24 by Kalia Mullen MD albuterol sulfate 2.5 mg (3 mL) inhalation Q6H albuterol sulfate 2.5 mg (3 mL) inhalation Q4-6H PRN albuterol sulfate 90 mcg/actuation (ProAir RespiClick) 2 inhalations inhalation QID iucbumhyt-zyonrfhw-iyqnnki ala 50-200-25 mg (Biktarvy) 1 tab PO DAILY 30 days hydrocortisone 2.5% (Proctosol HC) [address] BEDTIME PRN methylcellulose (laxative) (Citrucel) 500 mg PO TID nebulizers (Aeroneb Go Nebulizer) As directed sodium,potassium,mag sulfates 17.5-3.13-1.6 gram (Suprep Bowel Prep Kit) DILUTE; drink 1/2 at 6-8 pm and half at 11 PM- 1AM trazodone 50 mg PO BEDTIME PRN triamcinolone acetonide 0.5% 1 appl topical BID HPI HPI 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 [facility] *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 AUDITOR*: Details: Start time: 10.07am, End time: 10.52am ?I spent 40 minutes speaking with the patient on the phone plus an additional 5 minutes reviewing and updating records for a total of 45 minutes HPI Comments Details: Previous weight loss efforts: none Wakes up: 8am, Sleeps: 2am Breakfast: skips Lunch: skips Dinner: 6pm (rice, meat, pasta, beans) Snacks: 2-3 snacks before dinner (cookies, sandwich), 2-3 times after dinner (chips or sandwich) Exercise: has a home treadmill Fluids: Coffee (1 cup/d with milk and sugar), tea: none, soda: Coke or Pepsi x3- 4/wk, juice:2-3/wk, ETOH: 6 Beers x1/wk PFSH Medical History Colon cancer screening HIV (human immunodeficiency virus infection) Obesity (BMI 30-39.9) GENNA I (cervical intraepithelial neoplasia I) Overweight (BMI 25.0-29.9) Tobacco abuse Insomnia GERD (gastroesophageal reflux disease) Anxiety and depression Atypical ductal hyperplasia, breast Asthma Migraine Surgical History Hx of colonoscopy History of laparoscopic cholecystectomy History of breast lump/mass excision History of breast surgery H/O LEEP History of tubal ligation History of umbilical hernia repair HIV (human immunodeficiency virus infection) Family History Father No problems noted. Mother No problems noted. Paternal Grandmother CVD (cardiovascular disease) Maternal Uncle Mouth cancer Maternal Grandmother Myocardial infarction CVD (cardiovascular disease) Gastric cancer Social History Housing: Apartment Alcohol intake: current Alcohol intake frequency: holidays/special occasions only Alcohol type: beer, wine and hard liquor Comment: 2 x a month 6 drinks Patient Tobacco Use Status: Former Tobacco user Tobacco use type: Cigarette Cigarette Packs Per Day: 0.5 Cigarettes Per Day: 10 Years Smoked: since 16 years old e-Cigarette/Vaping Use: Never Used Second Hand Smoke Exposure: Yes service: No Current occupational status: unemployed Sexual orientation: Straight/Heterosexual Gender identity: Female Cognitive needs: No Hearing needs: No Vision needs: Yes Female Reproductive History Menstrual Age of Menarche: 13 Telehealth Telehealth Telehealth Platform: Telephone Location of provider rendering services: practice address Location of patient: address on file Patient Identification confirmed using: Name, : Yes Telehealth method: voice only Patient verbally consented to treatment: Yes Patient verbally consented to billing insurance company: Yes Patient informed of any privacy concerns related to visit: Yes Minutes spent on Phone/Video with Pt.: 45 Assessment & Plan Assessment & Plan (1) Obesity (BMI 30-39.9): Code(s): E66.9 - Obesity, unspecified Category: Medical Plan: 1. We discussed in detail the available therapeutic options: 1) his insurance requires participation in our lifestyle intervention program for 3 months before use of anti-obesity medications is considered. We discussed about the use of our [employer] software claudio for the meal and exercise plan. 2) We also discussed about the?? lap sleeve gastrectomy. I emphasized the importance of close follow-up, adherence to instructions and good communication. The surgery does not replace the need to change your lifestlyle which is the cause of the obesity problem. The surgery provides the motivation to try again to change your lifestyle, it reduces the appetite and make the transition to a better lifestyle easier and doubles the amount of weight you would lose compared to doing the lifestyle change without the surgery. You will need to be on a liquid diet with protein shakes for 2 weeks before surgery to maximize weight loss and boost your nutritional status to recover better from surgery and also for the first two weeks after surgery to let the stomach heal before we introduce other foods. After the first 2 weeks we will introduce protein bars and soft foods like scrambled eggs, cottage cheese and yogurt and after the 6th week will introduce meat, fish and cooked vegetables in small amounts. Over time you should be able to eat everything in small amounts. Side effects like nausea, vomiting, heartburn or abdominal pain are not common in the practice unless you are not following in the practice. This operation requires lifetime commitment to following in our practice and communication with me. You will much less weight and experience side effects if you don?t communicate or not following in the practice. Complications are rare and in our practice is about 1/10 of the national average. ?2.? Please buy the body composition scale we discussed and send me weight measurements as soon as possible and then once a week. 3. The best choice would be to purchase a stationary bike at home that can track calories. Let me know if you do so I can give you an exercise plan. Goal is to exercise for 150 minutes per week. 4. Goal is to lose at least 1.5-2lbs per week 5. Goal to lose at least 10% of your weight, which is about 20lbs. Weight goal: 176lbs 6. You have high blood pressure. Buy a blood pressure monitor and start measuring your blood pressure daily in the morning and let me know the readings 7. Once I will receive the first weight measurement, I will order a medication to help you with the weight loss which is called Zepbound. My office will try to authorize it. Please let me know when you receive it so I can give you a meal and exercise plan. Common side effects include nausea, vomiting, constipation, diarrhea, abdominal pain. Please let me know if you develop any of these symptoms. Phentermine is contraindicated due to her history of medically treated hypertension, CAD and history of MS. 8. Please track the calories you consume daily and aim not to exceed the 1200 calories per day. Avoid high calorie drinks, fried, or high in fat foods as well as large amount of carbohydrates (sweets, potatoes, rice, or pasta).
== END 2024-11-10 10:53 | disposition home or self-care (01) ==
PROVIDERS: PCP Internal Medicine; Visit Provider Surgery
DX: E66.812 Obesity, class 2 (principal); Z68.35 Body mass index [BMI] 35.0-35.9, adult
CPT/HCPCS: 99204

== ENCOUNTER 2024-12-29 16:48 | Outpatient (REF) | payer OTHER, SELFPAY ==
[2024-12-30 21:13] LABS: HIV RNA PCR Qn Copies 72 copies/mL (NOT DETECTED); HIV RNA PCR Qn Log Copies 1.86 (NOT DETECTED)
[2025-01-01 20:04] LABS: Absolute CD3 Count 1539 cells/uL (840-3060); Absolute CD4 Count 729 cells/uL (490-1740); Absolute CD8 Count 848 cells/uL (180-1170); Absolute Lymphocytes 2413 cells/uL (850-3900); CD4 CD8 Ratio 0.86 (0.86-5.00); Percent CD3 Cells 64 % (57-85); Percent CD4 Cells 30 % (30-61); Percent CD8 Cells 35 % (12-42)
== END 2024-12-29 16:49 | disposition home or self-care (01) ==
LOC: HO.LAB 16:48
PROVIDERS: PCP Internal Medicine; Visit Provider Internal Medicine
DX: Z21 Asymptomatic human immunodeficiency virus [HIV] infection status (principal)
CPT/HCPCS: 36415; 86359; 86360; 87536

== ENCOUNTER 2025-01-08 11:10 | Outpatient (REF) | payer OTHER, SELFPAY ==
[2025-01-08 11:24] LABS: MANUAL DIFF FLAG NO
[2025-01-08 11:57] LABS: Basophils Absolute Auto 0.1 X10*3/uL (0.0-0.2); Basophils Percent Auto 1.2 % (0-2); Eosinophils Absolute Auto 0.2 X10*3/uL (0.0-0.4); Hemoglobin 15.3 g/dl (12.0-16.0); Imm Gran Abs Auto 0.03 X10*3/uL (0.00-0.03); Imm Gran Pct Auto 0.4 % (0.0-0.4); Lymphocytes Absolute Auto 2.6 X10*3/uL (1.2-4.9); Lymphocytes Percent Auto 35.3 % (20-40); Mean Corpuscular HGB Conc 34.8 g/dl (31.0-35.0); Mean Corpuscular Volume 89.1 fL (80.0-98.0); Monocytes Absolute Auto 0.6 X10*3/uL (0.1-1.2); Monocytes Percent Auto 8.4 % (2-11); Neutrophils Absolute Auto 3.8 x10*3/uL (2.0-8.3); Neutrophils Percent Auto 51.7 % (45-73); Platelet Count 341 X10*3/uL (160-400); Red Blood Count 4.94 X10*6/uL (4.20-5.50); Red Cell Distribution Width 12.9 % (11.0-16.0); White Blood Count 7.4 X10*3/uL (4.8-10.8)
[2025-01-08 12:10] LABS: Estimated Average Glucose 114 mg/dL; Hemoglobin A1C 150.1664 umol/L; Hemoglobin A1c % 5.6 % (<6.0); Total Hemoglobin (HGBA1C) 3983.9503 umol/L
[2025-01-08 12:34] LABS: Alanine Aminotransferase 29 U/L (0-31); Albumin Level 4.5 g/dL (3.5-5.0); Alkaline Phosphatase 49 U/L (39-117); Anion Gap 10 (12-20); Aspartate Amino Transferase 27 U/L (5-31); Bilirubin Total 0.5 mg/dL (0.0-1.0); Blood Urea Nitrogen 12 mg/dL (9-16); Calcium 9.9 mg/dL (8.4-10.2); Carbon Dioxide 28 mmol/L (22-29); Chloride 107 mmol/L (96-108); Cholesterol 167 mg/dL (<200); Estimated Glomerular Filt Rate > 60; Glucose Random 110 mg/dL (60-115); HDL Cholesterol 32 mg/dL (>40); LDL Cholesterol Calculated 113 mg/dL (<100); Potassium 3.6 mmol/L (3.3-5.1); Sodium 141 mmol/L (135-145); Total Protein 7.8 g/dL (6.5-8.0); Triglycerides 114 mg/dL (<150)
[2025-01-08 12:44] LABS: Thyroid Stimulating Hormone 1.78 uIU/mL (0.32-4.0); Vitamin D 25-OH Total 11.1 ng/mL (>30)
[2025-01-08 12:57] LABS: Folate 15.7 ng/mL (> or = 4.0); Vitamin B12 417 pg/mL (200-900)
== END 2025-01-08 11:11 | disposition home or self-care (01) ==
LOC: HO.LAB 11:10
PROVIDERS: PCP Internal Medicine; Visit Provider Internal Medicine
DX: R73.02 Impaired glucose tolerance (oral) (principal); E78.00 Pure hypercholesterolemia, unspecified
CPT/HCPCS: 36415; 80053; 80061; 82306; 82607; 82746; 83036; 84439; 84443; 85025; 99212

== ENCOUNTER 2025-01-08 11:46 | Outpatient (AMB) | payer OTHER, SELFPAY ==
--- NOTE | 2025-01-08 11:49 | A.OFFVIS_ITS ---
Vital Signs 01/08/25 11:52 Height 5 ft 6 in Weight 199 lb BMI 32.1 Intake Visit Reasons: 6 month HIV Labs Allergies No Known Allergies Allergy (Verified 01/08/25 11:53) HPI HPI 6 month HIV Labs: Details: She reports taking Biktarvy daily at 2-3 am. She denies missing doses. She has CD4 count of 729 and viral load 72 12/29/2024. She has anal Pap done by Halina Ahuja CNM on 09/07/2024 She has negative mammogram 2023. She has had colonscopy 07/2023 tubulovillous adenoma and is seeing GI this month. She has not had bone density test. [facility] Medical History Colon cancer screening HIV (human immunodeficiency virus infection) Obesity (BMI 30-39.9) GENNA I (cervical intraepithelial neoplasia I) Overweight (BMI 25.0-29.9) Tobacco abuse Insomnia GERD (gastroesophageal reflux disease) Anxiety and depression Atypical ductal hyperplasia, breast Asthma Migraine Surgical History Hx of colonoscopy History of laparoscopic cholecystectomy History of breast lump/mass excision History of breast surgery H/O LEEP History of tubal ligation History of umbilical hernia repair HIV (human immunodeficiency virus infection) Family History Father No problems noted. Mother No problems noted. Paternal Grandmother CVD (cardiovascular disease) Maternal Uncle Mouth cancer Maternal Grandmother Myocardial infarction CVD (cardiovascular disease) Gastric cancer Social History Housing: Apartment Alcohol intake: current Alcohol intake frequency: holidays/special occasions only Alcohol type: beer, wine and hard liquor Comment: 2 x a month 6 drinks Patient Tobacco Use Status: Former Tobacco user Tobacco use type: Cigarette Cigarette Packs Per Day: 0.5 Cigarettes Per Day: 10 Years Smoked: since 16 years old e-Cigarette/Vaping Use: Never Used Second Hand Smoke Exposure: Yes service: No Current occupational status: unemployed Sexual orientation: Straight/Heterosexual Gender identity: Female Cognitive needs: No Hearing needs: No Vision needs: Yes Female Reproductive History Menstrual Age of Menarche: 13 Review of Systems Const All systems reviewed & are unremarkable except as noted in HPI and below Physical Exam Vital Signs: BMI result Body Mass Index 32.1 Const General: cooperative Orientation/consciousness: patient oriented x3 HEENT Head: Yes normal to inspection Mouth: Normal oral and palatal mucosa present Eyes General: appearance normal, both eyes and all related structures Pupils: Equal, round and reactive pupils present Resp Effort & Inspection: normal respiratory effort Cardio Rate: regular rate Rhythm: regular rhythm GI Palpation (GI): Soft to palpation and nontender General: Yes no CVA tenderness Back/Spine/Pelvis Back: no CVA tenderness Skin General skin exam: no rashes or lesions noted Neuro General: patient oriented x3 Cranial nerves: Yes CN's II-XII intact bilaterally and Yes Equal, round and reactive pupils present Extrem General: Yes normal to inspection Psych Appearance: grossly normal Assessment & Plan Assessment & Plan (1) Sessile colonic polyp: Comment: 08/08/23 Diagnosis Colon, descending, polyp: 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 Code(s): K63.5 - Polyp of colon Category: Medical (2) HIV (human immunodeficiency virus infection): Comment: She has some increased viral load possibly take Biktarvy when wakes up in morning Check CD4 count and viral load June 2025 and I ordered labs and medication today. Would see in June 2025. Would do PCV-20 as well as MCV-4 I will order bone density test. Code(s): B20 - Human immunodeficiency virus [HIV] disease Category: Surgical Qualifiers: HIV symptom status: asymptomatic, with no history of HIV-related illness Qualified Code(s): Z21 - Asymptomatic human immunodeficiency virus [HIV] infection status Plan: na Plan na Orders: Orders Lymphocyte Subset Panel 3 6 Months Z21 - Asymptomatic human immunodeficiency virus [HIV] infection status HIV-1 RNA QN PCR Expanded 6 Months K63.5 - Polyp of colon XR DEXA axial skeleton Today M89.9 - Disorder of bone, unspecified Medications: Refilled wdamqtipz-hdmucgij-uhhdtbb ala 50-200-25 mg (Biktarvy) 1 tab PO DAILY 30 days 30 tabs 5RF Coding Level of Care Code Est Pt Level 4 (08763) Diagnoses Sessile colonic polyp K63.5 Asymptomatic HIV infection, with no history of HIV-related illness Z21 HIV symptom status: asymptomatic, with no history of HIV-related illness
[2025-01-08 11:52] VITALS: BMI 32.1
== END 2025-01-08 12:06 | disposition home or self-care (01) ==
LOC: HO.HID 11:46
PROVIDERS: PCP Internal Medicine; Visit Provider Internal Medicine
DX: K63.5 Polyp of colon (principal); Z21 Asymptomatic human immunodeficiency virus [HIV] infection status
CPT/HCPCS: 99214

== ENCOUNTER 2025-01-11 12:22 | Outpatient (AMB) | payer OTHER, SELFPAY ==
[2025-01-11 12:30] VITALS: BP 108/70; PULSE 86; TEMP 36.4; O2SAT 93; BMI 31.5
--- NOTE | 2025-01-11 12:30 | MHC.PC.OV ---
Vital Signs 01/11/25 12:30 Height 5 ft 6 in Weight 195 lb 4 oz BMI 31.5 BP 108/70 Blood Pressure Location Lt brachial Position Sitting Pulse 86 Pulse Source Pulse Oximeter Temp 97.5 F Temp Source Temporal Artery Scan Pulse Oximetry (%) 93 Oxygen Delivery Method Room Air Intake Visit Reasons: Annual exam Accompanied by: Self / Same As Patient Allergies No Known Allergies Allergy (Verified 01/11/25 12:33) Medication List - Last Reconciled 01/11/25 by Chaparro Luevano MD albuterol sulfate 2.5 mg (3 mL) inhalation Q6H albuterol sulfate 2.5 mg (3 mL) inhalation Q4-6H PRN albuterol sulfate 90 mcg/actuation (ProAir RespiClick) 2 inhalations inhalation QID yhgnpslpi-qexesxmh-yljnula ala 50-200-25 mg (Biktarvy) 1 tab PO DAILY 30 days nebulizers (Aeroneb Go Nebulizer) As directed phentermine 37.5 mg PO DAILY trazodone 50 mg PO BEDTIME PRN triamcinolone acetonide 0.5% 1 appl topical BID Tobacco use date assessed: 01/11/25 Dental Screening Dental Screen Date: 10/23/24 Did you have a dental visit in the last 12 months?: Yes Did you have a dental problem in the last 6 months where you did not have access to dental care?: No Was dental information given to patient?: Patient has dentist HPI Annual exam HPI Details [facility] [id number] [facility] Medical History (Updated 01/11/25 @ 12:56 by Chaparro Luevano MD) Bone disorder Colon cancer screening HIV (human immunodeficiency virus infection) Obesity (BMI 30-39.9) GENNA I (cervical intraepithelial neoplasia I) Overweight (BMI 25.0-29.9) Tobacco abuse Insomnia GERD (gastroesophageal reflux disease) Anxiety and depression Atypical ductal hyperplasia, breast Asthma Migraine Surgical History (Updated 01/08/25 @ 12:16 by Ivelisse Mackenzie MD) Hx of colonoscopy History of laparoscopic cholecystectomy History of breast lump/mass excision History of breast surgery H/O LEEP History of tubal ligation History of umbilical hernia repair HIV (human immunodeficiency virus infection) Family History Father No problems noted. Mother No problems noted. Paternal Grandmother CVD (cardiovascular disease) Maternal Uncle Mouth cancer Maternal Grandmother Myocardial infarction CVD (cardiovascular disease) Gastric cancer Social History (Updated 01/11/25 @ 12:50 by Chaparro Luevano MD) Housing: Apartment Alcohol intake: current Alcohol intake frequency: holidays/special occasions only Alcohol type: beer, wine and hard liquor Comment: 2 x a month 6 drinks. 12/2024-QO week 7-8 beers Patient Tobacco Use Status: Current everyday Tobacco user Tobacco use type: Cigarette Cigarette Packs Per Day: 0.5 Cigarettes Per Day: 10 Years Smoked: since 16 years old , e-Cigarette/Vaping Use: Never Used Second Hand Smoke Exposure: Yes service: No Current occupational status: unemployed Sexual orientation: Straight/Heterosexual Gender identity: Female Cognitive needs: No Hearing needs: No Vision needs: Yes Female Reproductive History Menstrual Age of Menarche: 13 Questionnaire PHQ-9 Over the last 2 weeks, how often have you been bothered by any of the following problems? 1. Little interest or pleasure in doing things: not at all 2. Feeling down, depressed, or hopeless: not at all 3. Trouble falling or staying asleep, or sleeping too much: not at all 4. Feeling tired or having little energy: not at all 5. Poor appetite or overeating: not at all 6. Feeling bad about yourself - or that you are a failure or have let yourself or your family down: not at all 7. Trouble concentrating on things, such as reading the newspaper or watching television: not at all 8. Moving or speaking so slowly that other people could have noticed. Or the opposite - being so fidgety or restless that you have been moving around a lot more than usual: not at all 9. Thoughts that you would be better off or of hurting yourself in some way: not at all Total score: 0 Depression Screening Interpretation: Negative Depression Screening Done: Yes Source: Developed by Drs. Anil Witt, Penelope Crystal, Hernán Melgar and colleagues, with an educational elana from [employer]. Thrive Questionnaire Date Thrive assessed: 10/23/24 I am a: Patient What is your living situation today?: I have a steady place to live Within the past 12 months, did the food you bought not last and you didn't have the money to get more?: Never true Within the past 12 months, did you worry whether your food would run out before you got money to buy more?: Never true Do you have trouble paying for medicines?: No Do you have trouble getting transportation to medical appointments?: No Do you have trouble paying your heating and electricity bill?: No Do you have trouble taking care of your child, family member or friend?: No Do you have trouble with day-to-day activities such as bathing, preparing meals, shopping, managing finances, etc.?: No Are you currently unemployed and looking for a job?: No Are you interested in more education?: No Please select the resources that you would like help with: None Currently or been in a relationship where the following occur: No concerns reported THRIVE Score: 0 AUDIT C Alcohol Use Questionnaire (AUDIT-C) 1. How often do you have a drink containing alcohol?: Monthly or less 2. How many drinks containing alcohol do you have on a typical day when you are drinking?: 1 or 2 3. How often do you have six or more drinks on one occasion?: Never Total Score: 1 ARIS-7 AMB Questionnaire ARIS-7 Date ARIS - 7 assessed: 10/23/24 Feeling nervous, anxious, or on edge: 0 = Not at all Not being able to stop or control worryin = Not at all Worrying too much about different things: 0 = Not at all Trouble relaxin = Not at all Being so restless that it is hard to sit still: 0 = Not at all Becoming easily annoyed or irritable: 0 = Not at all Feeling afraid as if something awful might happen: 0 = Not at all Total ARIS-7 score (0-4 normal; 5-9 mild; 10-14 moderate; 15-21 severe): 0 Source: Developed by Drs. Anil Witt, Penelope Crystal, Hernán Melgar and colleagues, with an educational elana from [employer]. Review of Systems Const Denies poor appetite and Denies weakness Eyes Denies no additional complaints ENT Reports Normal hearing present, Denies dizziness, Denies nasal congestion, Denies tinnitus and Denies sore throat Card Denies chest pain, Denies syncope, Denies rapid heart rate and Denies dyspnea Resp Denies cough and Denies dyspnea GI Denies change in stool character, Reports constipation, Denies diarrhea, Denies nausea and Denies vomiting Denies urinary frequency, Denies difficulty voiding and Denies dysuria Neuro Reports Normal hearing present, Denies confusion, Denies dizziness, Denies syncope and Denies weakness Psych Denies confusion Physical exam (Primary Care) Vital Signs: Last Vital Signs Temp 97.5 F 01/11/25 12:30 Pulse 86 01/11/25 12:30 BP 108/70 01/11/25 12:30 Pulse Ox 93 01/11/25 12:30 Oxygen Delivery Method Room Air 01/11/25 12:30 BMI result Body Mass Index 31.5 Tobacco/Smoking Status: Tobacco use Status Tobacco use date assessed 01/11/25 01/11/25 12:35 Patient Tobacco Use Status Current everyday Tobacco 01/11/25 12:50 Tobacco use type Cigarette 01/11/25 12:50 e-Cigarette/Vaping Use Never Used 01/11/25 12:50 PHQ-9: PHQ-9 Score PHQ-9: Total score 0 01/11/25 12:41 Depression Screening Interpretation: Negative Thrive Assessment: Date of Thrive Assessment Date Thrive assessed 10/23/24 01/11/25 12:30 Currently or been in a relationship where the following occur: No concerns reported Const General: No confusion Orientation/consciousness: No confusion HENMT Head: Yes normocephalic Ears: external ears normal and TM's normal bilaterally Face and sinus: Yes normal facial exam Mouth: moist mucous membranes Throat: Yes tonsils normal Eyes Conjunctivae: conjunctivae normal Pupils: Equal, round and reactive pupils present and Pupil accommodation reflex normal Direct Ophthalmoscopy: normal light reflex Neck Neck: No lymphadenopathy Thyroid: Thyroid normal Chest Chest palpation & inspection: normal inspection of the chest Resp Effort & Inspection: normal respiratory effort and no audible wheezes Auscultation: clear to auscultation bilaterally, no crackles, no wheezes and lung sounds not diminished Cardio Rate: regular rate Rhythm: regular rhythm Peripheral pulses: radial pulses present and dorsalis pedis present GI Palpation (GI): no masses Auscultation: normal bowel sounds and normoactive bowel sounds Rectal Exam - Female: deferred Skin General skin exam: no rashes or lesions noted Rashes: no rashes Neuro General: No confusion Cranial nerves: Yes Equal, round and reactive pupils present and Yes Normal hearing present Cognition (Neuro): normal cognition Gait exam (Neuro): Normal gait present Motor exam (neuro): 5/5 motor strength present throughout Deep tendon reflexes (DTR's): Right brachioradialis reflex intensity grade: 2+, Left brachioradialis reflex intensity grade: 2+, Right patellar reflex intensity grade: 2+ and Left patellar reflex intensity grade: 2+ Extrem General: No edema Coding Level of Care Code Est Pt Prev Care 40-64y(80706) Diagnoses Annual physical exam Z00.00 Asymptomatic HIV infection, with no history of HIV-related illness Z21 HIV symptom status: asymptomatic, with no history of HIV-related illness Tobacco abuse Z72.0 Gastroesophageal reflux disease without esophagitis K21.9 Esophagitis presence: without esophagitis Obesity (BMI 30-39.9) E66.9 Mild intermittent asthma without complication J45.20 Asthma complication type: uncomplicated Asthma persistence: intermittent Asthma severity: mild Tubulovillous adenoma D36.9 Impaired glucose tolerance R73.02 Constipation K59.00 Assessment & Plan Assessment & Plan (1) Annual physical exam: Code(s): Z00.00 - Encounter for general adult medical examination without abnormal findings Category: Medical Plan: Patient is advised to eat healthy, keep well hydrated, keep active and have adequate sleep. (2) HIV (human immunodeficiency virus infection): Comment: She has some increased viral load possibly take Biktarvy when wakes up in morning Check CD4 count and viral load June 2025 and I ordered labs and medication today. Would see in June 2025. Would do PCV-20 as well as MCV-4 I will order bone density test. Code(s): B20 - Human immunodeficiency virus [HIV] disease Category: Surgical Qualifiers: HIV symptom status: asymptomatic, with no history of HIV-related illness Qualified Code(s): Z21 - Asymptomatic human immunodeficiency virus [HIV] infection status Plan: Continue to follow-up with infectious disease specialist (3) Tobacco abuse: Code(s): Z72.0 - Tobacco use Category: Medical Plan: Patient is strongly advised to stop smoking (4) GERD (gastroesophageal reflux disease): Code(s): K21.9 - Gastro-esophageal reflux disease without esophagitis Category: Medical Qualifiers: Esophagitis presence: without esophagitis Qualified Code(s): K21.9 - Gastro-esophageal reflux disease without esophagitis Plan: Avoid the foods that causes that usually spicy foods, tomato products, juices, coffee, soda and foods that your sensitive to. After eating do not lie down, allow 3-4 hours before in lie down. And keep the head of bed above 30 degrees to avoid the acid from going up. (5) Obesity (BMI 30-39.9): Code(s): E66.9 - Obesity, unspecified Category: Medical Plan: Diet and exercise (6) Asthma: Code(s): J45.909 - Unspecified asthma, uncomplicated Category: Medical Qualifiers: Asthma complication type: uncomplicated Asthma persistence: intermittent Asthma severity: mild Qualified Code(s): J45.20 - Mild intermittent asthma, uncomplicated Plan: Continue with albuterol inhaler as needed (7) Tubulovillous adenoma: Code(s): D36.9 - Benign neoplasm, unspecified site Category: Medical Plan: Patient is scheduled to see the interstate bus dispatcher on the 15 of January for colonoscopy recall (8) Impaired glucose tolerance: Code(s): R73.02 - Impaired glucose tolerance (oral) Category: Medical Plan: Decrease the amount of carbohydrate intake, pasta, bread, rice and potatoes are all sugar and that is aside from all the sweet stuff, remember that fruits are good but they are Sweet also. (9) Constipation: Code(s): K59.00 - Constipation, unspecified Category: Medical Plan History of Present Illness The patient is a 54-year-old female presenting with an annual wellness visit. She has noted a 4-pound weight gain despite ongoing weight management efforts, and she is taking phentermine to aid in weight reduction, with no adverse effects reported such as palpitations. The patient has a history of HIV, managed with Biktarvy, maintaining a robust CD4 count of 1539. Her asthma is stable, and she uses an albuterol inhaler as needed. She reports smoking regularly and consuming alcohol primarily in large amounts during social occasions every other weekend. The patient experiences GERD symptoms, with heartburn occurring twice weekly, likely exacerbated by dietary choices and alcohol use. She occasionally suffers from constipation, which she associates with her weight management medication, but denies any nausea or vomiting. Family history is significant for cardiovascular disease. The patient does not have diabetes but demonstrates impaired glucose tolerance, aligning with her mildly elevated blood glucose levels. Routine screenings including a colonoscopy are scheduled, and a mammogram is planned for February. Previous laboratory tests indicated low vitamin D levels and good cholesterol management, necessitating vitamin D supplementation. Recently, she received a pneumonia vaccination. Health Maintenance - Patient mammogram due in February. - Colonoscopy scheduled for January 15. - Bone density test recommended; appointment to be scheduled. - Advised to maintain a healthy diet and regular exercise. - Smoking cessation discussed with nicotine replacement therapy as an option. - Vitamin D supplementation prescribed at 2000 IU daily. - Pneumonia vaccination received January 08. - CD4 count monitoring suggests continued effective management of HIV. Social History - Current smoker, approximately one pack every two days. - Occasional alcohol consumption: seven to eight beers every other weekend. - Manages weight with a combination of diet, exercise, weight management clinic, and phentermine. - Family history of cardiovascular disease on both maternal and paternal sides. Review of Systems - General: Denies fever, weight loss. - Respiratory: Denies shortness of breath; uses albuterol inhaler as needed for asthma. - Cardiovascular: Denies chest pain, palpitations. - Gastrointestinal: Reports constipation, heartburn twice weekly. - Neurological: Denies dizziness, fainting. - Dermatological: Occasional itchiness. - Reproductive: Denies recent mammogram; scheduled for February. Physical Exam General: Cooperative, healthy appearing, comfortable, no acute distress and well developed Orientation: Patient oriented x3 Limitations: No limitations Head: Normal to inspection Ears: Hearing grossly normal bilaterally Nose: Normal external nose present Face and sinus: Normal facial exam Eyes: Appearance normal, both eyes and all related structures Neck: Normal visual inspection and Yes full ROM Respiratory: Normal respiratory effort and able to speak in complete sentences. Clear to auscultation bilaterally Cardiovascular: Regular rate and rhythm. Normal S1 and S2 GI: Normal to inspection. Soft to palpation and nontender Skin: No rashes or lesions noted Neuro: Patient oriented x3 Extremities: Normal to inspection Results - Labs: Normal complete blood count, normal renal function, mildly elevated blood glucose, normal hemoglobin A1c, LDL cholesterol at 113, low vitamin D levels. - CD4 count for HIV management is robust at 1539. Plan The patient's asthma remains under control with as-needed use of albuterol. I discussed the risks associated with her current smoking and alcohol consumption and recommended nicotine replacement therapy along with reducing alcohol intake. GERD symptoms will be managed through dietary modifications, pending further evaluation by a interstate bus dispatcher. The patient's weight management plan continues with phentermine and lifestyle advice. Glucose levels and vitamin D deficiency are being addressed with continued monitoring and supplementation. HIV treatment is effective and follow-up with specialist care will continue. Scheduling and compliance with preventive screenings remain priorities, and the patient is encouraged to adhere to recommended health maintenance strategies. Patient was informed and verbally consented to the use of an ambient scribe for clinic note documentation during this visit. Discussion Notes I discussed the importance of smoking cessation, acknowledging the challenges and suggesting nicotine replacement patches. We reviewed the patient's alcohol use, highlighting the risks of liver damage and recommending reduced intake. For GERD management, dietary advice was given, and further guidance is pending interstate bus dispatcher evaluation. I emphasized the efficacy of her current HIV regimen, as reflected in her CD4 count while underscoring the necessity for continued specialist follow-up. Vitamin D supplementation was advised due to deficiency, and the implications for bone health were explained. Preventive care included reminders of upcoming screenings and vaccinations. Follow-up within three months was planned to assess progress, address any changes, and ensure adherence to health maintenance recommendations. I encouraged the patient to report new or worsening symptoms and maintain open communication. Patient Instructions - Use albuterol inhaler as needed for asthma management. - Consider nicotine replacement patches for smoking cessation. - Limit alcohol consumption to protect liver health. - Avoid triggering foods for heartburn and discuss symptoms with the interstate bus dispatcher. - Continue phentermine for weight management and adhere to lifestyle changes. - Monitor glucose levels; maintain a balanced diet and regular exercise. - Take vitamin D 2000 IU daily as prescribed. - Ensure completion of colonoscopy and mammogram appointments. - Alert provider to any new symptoms or health concerns. - Follow up in three months for reassessment and further guidance. Medications: New sennosides-docusate sodium 8.6-50 mg (Senna Plus) 2 tab-caps (2 x 8.6-50 mg) PO BEDTIME 60 caps 0RF K59.00 - Constipation, unspecified nicotine 1 patch transdermal DAILY 28 ea 1RF Z72.0 - Tobacco use nicotine 1 patch transdermal DAILY 28 ea 0RF Z72.0 - Tobacco use cholecalciferol (vitamin D3) 50 mcg PO DAILY 90 caps 3RF 90 days E55.9 - Vitamin D deficiency, unspecified, K59.00 - Constipation, unspecified Discontinued albuterol sulfate Discontinued Reason: Duplicate 2.5 mg (3 mL) inhalation Q6H 180 mL 1RF J45.901 - Unspecified asthma with (acute) exacerbation
== END 2025-01-11 13:18 | disposition home or self-care (01) ==
LOC: HO.HMCH 12:22
PROVIDERS: PCP Internal Medicine; Visit Provider Internal Medicine
DX: Z00.00 Encounter for general adult medical examination without abnormal findings (principal); Z21 Asymptomatic human immunodeficiency virus [HIV] infection status; E66.9 Obesity, unspecified; Z68.31 Body mass index [BMI] 31.0-31.9, adult; Z72.0 Tobacco use; K21.9 Gastro-esophageal reflux disease without esophagitis; J45.20 Mild intermittent asthma, uncomplicated; D36.9 Benign neoplasm, unspecified site; R73.02 Impaired glucose tolerance (oral); K59.00 Constipation, unspecified

== ENCOUNTER → 2025-01-11 12:22 | Outpatient (BNVA) | payer OTHER, SELFPAY | PROVIDERS: PCP Internal Medicine; Visit Provider Internal Medicine | DX: Z00.00 Encounter for general adult medical examination without abnormal findings (principal); K21.9 Gastro-esophageal reflux disease without esophagitis; E66.9 Obesity, unspecified; J45.20 Mild intermittent asthma, uncomplicated; D36.9 Benign neoplasm, unspecified site; R73.02 Impaired glucose tolerance (oral); K59.00 Constipation, unspecified; F17.210 Nicotine dependence, cigarettes, uncomplicated; E55.9 Vitamin D deficiency, unspecified; J45.901 Unspecified asthma with (acute) exacerbation; Z21 Asymptomatic human immunodeficiency virus [HIV] infection status | CPT/HCPCS: 96127; 99396 ==

== ENCOUNTER 2025-01-15 10:58 | Outpatient (AMB) | payer OTHER, SELFPAY ==
--- NOTE | 2025-01-15 11:00 | MHC.OFFVIS ---
Vital Signs 01/15/25 11:01 Height 5 ft 6 in Weight 194 lb 0.108 oz BMI 31.3 BP 129/71 Blood Pressure Location Lt brachial Position Sitting Pulse 94 Intake Visit Reasons: 2 yrs colonoscopy recall/ [facility] 09/05/2023 Intake Note: Mayra presents in the office as a [facility] patient colonoscopy recall. CC: She states that she is just due for a colonoscopy. Director Of Infection Prevention Required: Yes Allergies No Known Allergies Allergy (Verified 01/11/25 12:33) Medication List - Last Reconciled 01/15/25 by Christin Zuñiga CNP albuterol sulfate 2.5 mg (3 mL) inhalation Q4-6H PRN albuterol sulfate 90 mcg/actuation (ProAir RespiClick) 2 inhalations inhalation QID tpsjytghx-[id number]-tqlskfb ala 50-200-25 mg (Biktarvy) 1 tab PO DAILY 30 days bisacodyl 5 mg PO ONCE 1 day cholecalciferol (vitamin D3) 50 mcg PO DAILY 90 days famotidine 20 mg PO DAILY PRN nebulizers (Aeroneb Go Nebulizer) As directed nicotine 1 patch transdermal DAILY nicotine 1 patch transdermal DAILY phentermine 37.5 mg PO DAILY polyethylene glycol 3350 (Miralax) 238 grams PO ONCE sennosides-docusate sodium 8.6-50 mg (Senna Plus) 2 tab-caps (2 x 8.6-50 mg) PO BEDTIME trazodone 50 mg PO BEDTIME PRN triamcinolone acetonide 0.5% 1 appl topical BID HPI HPI 2 yrs colonoscopy recall/ [facility] 09/05/2023: Details: Patient is a 54-year-old female with PMH of nicotine dependence, asthma,insomnia, anxiety and depression, GERD and HIV. Last visit with ANAND Watts 09/05/2023 for follow-up after colonoscopy. Pt is here today for pre-screening colonoscopy. She was expecting a colonoscopy six months after the last and expresses frustration that the procedure was not complete. She reports stool are fairly regular with occasional hard stools. She reports spontaneous return to baseline stool pattern. Reports bright red blood with wiping, endorses hemorrhoids. She manages with OTC medicated wipes. Recently prescribed senna but has not started taking. She reports heartburn 1-2x/week. Triggered by sauces and spicy foods. States symptoms are relieved with TUMs. Patient denies: fever/chills, n/v, appetite changes, regurgitation, unintentional wt loss, ab pain, dysphasia, cardiopulmonary symptoms or melena/hematochezia. She is scheduled to follow up with PCP next week. [facility] Medical History Bone disorder Colon cancer screening HIV (human immunodeficiency virus infection) Obesity (BMI 30-39.9) GENNA I (cervical intraepithelial neoplasia I) Overweight (BMI 25.0-29.9) Tobacco abuse Insomnia GERD (gastroesophageal reflux disease) Anxiety and depression Atypical ductal hyperplasia, breast Asthma Migraine Surgical History Hx of colonoscopy History of laparoscopic cholecystectomy History of breast lump/mass excision History of breast surgery H/O LEEP History of tubal ligation History of umbilical hernia repair HIV (human immunodeficiency virus infection) Family History Father No problems noted. Mother No problems noted. Paternal Grandmother CVD (cardiovascular disease) Maternal Uncle Mouth cancer Maternal Grandmother Myocardial infarction CVD (cardiovascular disease) Gastric cancer Social History Housing: Apartment Alcohol intake: current Alcohol intake frequency: holidays/special occasions only Alcohol type: beer, wine and hard liquor Comment: 2 x a month 6 drinks. 12/2024-QO week 7-8 beers Patient Tobacco Use Status: Current everyday Tobacco user Tobacco use type: Cigarette Cigarette Packs Per Day: 0.5 Cigarettes Per Day: 10 Years Smoked: since 16 years old , e-Cigarette/Vaping Use: Never Used Second Hand Smoke Exposure: Yes service: No Current occupational status: unemployed Sexual orientation: Straight/Heterosexual Gender identity: Female Cognitive needs: No Hearing needs: No Vision needs: Yes Female Reproductive History Menstrual Age of Menarche: 13 Review of Systems Const Reports as per HPI ENT Reports as per HPI Card Reports as per HPI Resp Reports as per HPI GI Reports as per HPI Reports as per HPI Physical Exam Vital Signs: Last Vital Signs Pulse 94 01/15/25 11:01 BP 129/71 01/15/25 11:01 BMI result Body Mass Index 31.3 Const General: healthy appearing, no acute distress and well developed Nutritional Appearance: well nourished Orientation/consciousness: patient oriented x3 HEENT Head: Yes normal to inspection, Yes normocephalic and Yes atraumatic Face and sinus: Yes normal facial exam Eyes General: appearance normal, both eyes and all related structures Neck Neck: Yes normal visual inspection Resp Effort & Inspection: normal respiratory effort, able to speak in complete sentences, no tracheal deviation and symmetric chest movement Auscultation: clear to auscultation bilaterally Cardio Jugular venous distension: no JVD Rate: regular rate Rhythm: regular rhythm Heart sounds: S1 normal heart sound present, S2 normal heart sound present, no gallops and no murmurs GI Inspection: Yes normal to inspection, No distended and Yes obesity Palpation (GI): Soft to palpation, not firm, nontender and No hepatosplenomegaly present Auscultation: normal bowel sounds Neuro General: patient oriented x3 Gait exam (Neuro): Normal gait present Psych Appearance: grossly normal Mental Status: mental status grossly normal Speech and movement: Normal speech and movement present Affect: normal affect Attitude: cooperative Thought process: Normal thought process present Thought content: Normal thought content present Insight: Good insight present (Psych) Judgement: Good judgement present (Psych) Results Reviewed Results Reviewed: Operative Note Date of Service: 08/08/23 Procedure Description: Colonoscopy Indication: screening COLONOSCOPY Procedure: The patient was placed in the left lateral decubitis position and pre-procedure medications were administered. After a digital rectal examination of the ano-rectum, the video colonoscope was inserted into the rectum and advanced through the colon to the cecum/TI. The colonoscope was slowly withdrawn in a retrograde panoramic fashion and the colon mucosa was carefully examined including a retroflexed view of the rectum. Findings and interventions are described below. Procedure Difficulty: moderate due to redundant colon Findings: Terminal Ileum-not intubated Cecum:normal Ascending Colon: normal Transverse Colon -normal Descending Colon: 12-14 mm sessile polyp, lifted with eleview and then removed with cold snare, with 2 clips applied for hemostasis Sigmoid Colon: normal Rectum: Retroflexion with small internal hemorrhoids, grade I Anorectum - normal Colon preparation: [place] Bowel Preparation Scale Right colon; 2 Transverse colon: 2 Left colon; 1-2 Impression and Post Procedure Diagnosis: polyp internal hemorrhoids redundant colon Plan: High fiber diet leaflet Avoid straining at stool, epsom salts and sitz bath, anusol supps or cream Repeat Colonoscopy in 1-2 years due to fair prep and polyp or earlier if clinically indicated Pathology Received: 08/08/23 Diagnosis Colon, descending, polyp: Tubulovillous adenoma with focal features of traditional serrated adenoma; negative for high-grade dysplasia and carcinoma (cannot evaluate margin) Assessment & Plan Assessment & Plan (1) Constipation: Code(s): K59.00 - Constipation, unspecified Category: Medical Qualifiers: Constipation type: unspecified constipation type Qualified Code(s): K59.00 - Constipation, unspecified Plan: Infrequent. Encouraged to trial senna prescribed by PCP. Reinforced lifestyle modifications to promote regularity: -higher fiber diet -adequate hydration with water -150 minutes of moderate intensity exercise per week (2) Sessile colonic polyp: Comment: 08/08/23: Colon, descending, polyp: 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 Code(s): K63.5 - Polyp of colon Category: Medical Plan: Reviewed colonoscopy and pathology from July 2023. As well as guidelines to repeat in 1-2 years based on polyp findings and adequacy of prep. Educated she is within the window for screening guidelines. We will proceed with polyp surveillance colonoscopy. Reviewed prep and procedure expectations. Prep Rx'd to preferred pharmacy. (3) GERD (gastroesophageal reflux disease): Code(s): K21.9 - Gastro-esophageal reflux disease without esophagitis Category: Medical Qualifiers: Esophagitis presence: without esophagitis Qualified Code(s): K21.9 - Gastro-esophageal reflux disease without esophagitis Plan: Intermittent symptoms. We will trial H2 clarence as needed, Pepcid sent to preferred pharmacy. Education on GERD prevention-Advised against heavy meals. Encouraged small frequent meals VS large meals, remaining upright after meals x 2-3 hours, avoid late night eating/spicy foods/caffeine/alcohol/known triggers and tight fitting clothes Plan Follow-up after colonoscopy sooner as needed Time: I spent a total of 45 minutes on the date of encounter which includes: Preparing to see the patient (reviewed previous documentation, test results and medical history) Performing a medically appropriate exam and/or evaluation Ordering medications, tests, and procedures Documenting clinical information in the health record Medications: New polyethylene glycol 3350 (Miralax) per colonoscopy prep instructions 238 grams PO ONCE 238 grams 0RF bisacodyl per colonoscopy instructions 5 mg PO ONCE 3 tabs 0RF 1 day famotidine Take one tablet daily as needed for acid reflux 20 mg PO DAILY PRN 90 tabs 1RF GERD Coding Level of Care Code Established Pt Est Pt Level 3 (06056) Patient Type Established Diagnoses Constipation, unspecified constipation type K59.00 Constipation type: unspecified constipation type Sessile colonic polyp K63.5 Gastroesophageal reflux disease without esophagitis K21.9 Esophagitis presence: without esophagitis
[2025-01-15 11:01] VITALS: BP 129/71; PULSE 94; BMI 31.3
== END 2025-01-15 12:03 | disposition home or self-care (01) ==
LOC: HO.HGI 10:58
PROVIDERS: PCP Internal Medicine; Visit Provider Nurse Practitioner Family
DX: K59.00 Constipation, unspecified (principal); K63.5 Polyp of colon; K21.9 Gastro-esophageal reflux disease without esophagitis
CPT/HCPCS: 99213

== ENCOUNTER → 2025-01-15 10:58 | Outpatient (BNVA) | payer OTHER, SELFPAY | PROVIDERS: PCP Internal Medicine; Visit Provider Nurse Practitioner Family | DX: K59.00 Constipation, unspecified (principal); K63.5 Polyp of colon; K21.9 Gastro-esophageal reflux disease without esophagitis | CPT/HCPCS: 99212 ==

== ENCOUNTER 2025-03-24 16:58 | Emergency (ER) | payer OTHER, SELFPAY ==
--- NOTE | ~2025-03-24 | XR_ITS ---
CLINICAL HISTORY: SOB 2 view chest x-ray Comparison: None provided Findings: No consolidation or effusion. Heart size is normal. No acute fracture. IMPRESSION: 1. No acute findings. This document has been electronically signed by: Melanei Xiong MD on 03/24/2025 18:24:12
--- NOTE | 2025-03-24 17:30 | ED_ITS ---
HPI - Asthma General Chief Complaint: Asthma Stated Complaint: Asthma Time Seen by Provider: 03/24/25 18:11 Source: patient Mode of arrival: ambulatory Limitations: no limitations History of Present Illness ED Provider: HPI Narrative: Patient's history of asthma been having increased shortness a breath and cough mostly dry been congested for last 1 week ran out of her albuterol inhaler and nebulizer no fever no chills no other family member sick Related Data Previous Rx's ?Medication ?Instructions ?Recorded albuterol sulfate 2.5 mg/3 mL 2.5 mg (3 mL) inhalation Q4-6H PRN 01/09/24 (0.083 %) solution for nebulization shortness of breat h or wheezing #180 mL triamcinolone acetonide 0.5 % 1 appl topical BID #30 g emiliano 01/09/24 topical cream nebulizers (Aeroneb Go Nebulizer) #1 ea 01/16/24 albuterol sulfate 90 mcg/actuation 2 inh inhalation QI D #1 ea 10/23/24 breath activated powder inhaler (ProAir RespiClick) phentermine 37.5 mg capsule 37.5 mg PO DAILY #30 caps 12/24/24 bictegravir 50 mg-emtricitabine 1 tab PO DAILY 30 days #30 tabs 01/08/25 200 mg-tenofovir alafenam 25 mg tablet (Biktarvy) cholecalciferol (vitamin D3) 50 50 mcg PO DAILY 90 day s #90 caps 01/11/25 mcg (2,000 unit) capsule bisacodyl 5 mg tablet,delayed 5 mg PO ONCE 1 day #3 ta bs 01/15/25 release famotidine 20 mg tablet 20 mg PO DAILY PRN GERD #90 tabs 01/15/25 polyethylene glycol 3350 17 238 g PO ONCE #238 grams 0 01/15/25 gram/dose oral powder (Miralax) nicotine 14 mg/24 hr daily 1 patch transdermal DAILY # 28 ea 03/09/25 transdermal patch sennosides 8.6 mg-docusate sodium 2 tab-cap (2 x 8.6-5 0 mg) PO 03/11/25 50 mg capsule (Senna Plus) BEDTIME #60 caps nicotine 21 mg/24 hr daily 1 patch transdermal DAILY # 28 ea 03/15/25 transdermal patch trazodone 50 mg tablet 50 mg PO BEDTIME PRN sleep # 90 tabs 03/18/25 albuterol sulfate 2.5 mg/3 mL 2.5 mg (3 mL) inhalation Q4-6H PRN 03/24/25 (0.083 %) solution for nebulization shortness of breat h or wheezing #90 mL prednisone 20 mg tablet 40 mg (2 x 20 mg) PO DAILY # 10 tabs 03/24/25 Allergies Allergy/AdvReac Type Severity Reaction Status Date / Time No Known Allergies Allergy Verified 03/24/25 17:32 Review of Systems 2 Review of Systems: Yes all other systems are reviewed and are negative [facility] Past Medical History Medical History Bone disorder Colon cancer screening HIV (human immunodeficiency virus infection) Obesity (BMI 30-39.9) GENNA I (cervical intraepithelial neoplasia I) Overweight (BMI 25.0-29.9) Tobacco abuse Insomnia GERD (gastroesophageal reflux disease) Anxiety and depression Atypical ductal hyperplasia, breast Asthma Migraine Surgical History Hx of colonoscopy History of laparoscopic cholecystectomy History of breast lump/mass excision History of breast surgery H/O LEEP History of tubal ligation History of umbilical hernia repair HIV (human immunodeficiency virus infection) Family History Family History Father No problems noted. Mother No problems noted. Paternal Grandmother CVD (cardiovascular disease) Maternal Uncle Mouth cancer Maternal Grandmother Myocardial infarction CVD (cardiovascular disease) Gastric cancer Social History Social History Housing: Apartment Alcohol intake: current Alcohol intake frequency: holidays/special occasions only Alcohol type: beer, wine and hard liquor Comment: 2 x a month 6 drinks. 12/2024-QO week 7-8 beers Patient Tobacco Use Status: Current everyday Tobacco user Tobacco use type: Cigarette Cigarette Packs Per Day: 0.5 Cigarettes Per Day: 10 Years Smoked: since 16 years old , e-Cigarette/Vaping Use: Never Used Second Hand Smoke Exposure: Yes service: No Current occupational status: unemployed Sexual orientation: Straight/Heterosexual Gender identity: Female Cognitive needs: No Hearing needs: No Vision needs: Yes Physical Exam 2 Vital Signs: Vital Signs: Last Vital Signs Temp 98.3 F 03/24/25 20:03 Pulse 96 03/24/25 20:03 Resp 18 03/24/25 20:03 BP 125/82 03/24/25 20:03 Pulse Ox 96 03/24/25 20:03 O2 Del Method Room Air 03/24/25 20:03 BMI result Body Mass Index 32.0 Appearance: Alert. Oriented X3. No acute distress. Eyes: no pallor or icterus ENT: Pharynx normal Oral Mucosa moist tympanic membrane intact no erythema, Neck: Normal inspection. Neck supple. CVS: Normal heart rate and rhythm. Pulses normal. Respiratory: No respiratory distress. Equal air entry bilateral, bilateral wheezing no crackles Abd: soft, not tender Skin: Skin warm and dry. Normal skin color. Normal skin turgor. Extremities: No lower extremity edema, no calf tenderness Neuro: Oriented X 3. Course Course Course Narrative: This is an RME: Additional HPI, ROS, PE not included below will be deferred to primary provider. RME assessment and note performed by: Cristian Barrett PA-C 54 yo F with asthma here today due to 1 week of increased asthma symptoms. Has been using albuterol inhalers and DUONEB at home. Increased cough, chest congestion, SOB when walking upstairs. PE: rales present on ascultation, no expiratory wheeze, no diminished lung sounds Plan: Labs, viral serology, CXR Medications Administered Discontinued Medications Generic Name Dose Route Start Last Admin Trade Name Alecq PRN Reason Stop Dose Admin Albuterol Sulfate 2.5 mg/ 0 mg 03/24/25 18:38 03/24/25 19:26 Albuterol/Ipratropium 3 ml INHALE 03/24/25 18:39 1 dose ONCE ONE Administration Prednisone 40 mg 03/24/25 18:38 03/24/25 19:11 Prednisone 20 Mg Tablet PO 03/24/25 18:39 40 mg ONCE ONE Administration Medical Decision Making Medical Decision Making [facility] Narrative: Patient's asthmatic bronchitis will discharge patient home on in the prednisone and nebulizer Lab Data [facility] Lab Attestation statement: I reviewed the patient's lab results. 03/24/25 17:59 03/24/25 17:59 Labs: Lab Results 03/24/25 Range/Units 17:59 WBC 9.7 (4.8-10.8) X10*3/uL RBC 4.69 (4.20-5.50) X10*6/uL Hgb 14.4 (12.0-16.0) g/dl Hct 41.2 (37.0-47.0) % MCV 87.8 (80.0-98.0) fL MCH 30.7 (27.0-33.0) pg MCHC 35.0 (31.0-35.0) g/dl RDW 12.7 (11.0-16.0) % Plt Count 343 (160-400) X10*3/uL MPV 9.6 (9.4-12.3) fL Immature Gran % (Auto) 0.4 (0.0-0.4) % Neut % (Auto) 60.8 (45-73) % Lymph % (Auto) 29.4 (20-40) % [place] % (Auto) 6.9 (2-11) % Eos % (Auto) 2.0 (0-4) % Baso % (Auto) 0.5 (0-2) % Lymph # (Auto) 2.8 (1.2-4.9) X10*3/uL [place] # (Auto) 0.7 (0.1-1.2) X10*3/uL Eos # (Auto) 0.2 (0.0-0.4) X10*3/uL Baso # (Auto) 0.1 (0.0-0.2) X10*3/uL Abs Immat Gran (auto) 0.04 H (0.00-0.03) X10*3/uL Absolute Neuts (auto) 5.9 (2.0-8.3) x10*3/uL Absolute Nucleated RBC 0.000 (0.0-0.012) X10*3/uL Nucleated RBC % (auto) 0.0 (0.0-0.2) /100WBC Sodium 141 (135-145) mmol/L Potassium 3.9 (3.3-5.1) mmol/L Chloride 107 (96-108) mmol/L Carbon Dioxide 25 (22-29) mmol/L Anion Gap 13 (12-20) BUN 15 (9-16) mg/dL Creatinine 0.67 (0.5-1.4) mg/dL Estim Creat Clear Calc 103.4 Estimated GFR > 60 Random Glucose 98 (60-115) mg/dL Calcium 9.7 (8.4-10.2) mg/dL Total Bilirubin 0.2 (0.0-1.0) mg/dL AST 26 (5-31) U/L ALT 33 H (0-31) U/L Alkaline Phosphatase 51 (39-117) U/L Total Protein 7.7 (6.5-8.0) g/dL Albumin 4.4 (3.5-5.0) g/dL Influenza Type A (PCR) NEGATIVE (Negative) Influenza Type B (PCR) NEGATIVE (Negative) RSV RNA Qual (PCR) NEGATIVE (Negative) SARS-CoV-2 RNA (RT-PCR) NEGATIVE (Negative) Independent Interpretation I performed an independent interpretation of an: Plain X-Ray Interpretation: Negative Discharge Plan Discharge Clinical Impression: Asthma attack Patient Disposition: Home, Self-Care Instructions: Asthma (ED) Additional Instructions: Your inhaler and nebulizing treatment every 4-6 hours as needed Prednisone as advised Stop smoking Follow with your PCP if not better Prescriptions: New albuterol sulfate 2.5 mg /3 mL (0.083 %) solution for nebulization 2.5 mg inhalation Q4-6H PRN (Reason: shortness of breath or wheezing) Qty: 90 0RF prednisone 20 mg tablet 40 mg PO DAILY Qty: 10 0RF No Action (DME) Aeroneb Go Nebulizer Misc See Rx Instructions .ROUTE .MEDSUPPLY Qty: 1 0RF Rx Instructions: As directed phentermine 37.5 mg capsule 37.5 mg PO DAILY Qty: 30 0RF Rx Instructions: must administer 30 minutes before or 1-2 hours after breakfast nicotine 14 mg/24 hr patch 24 hour 1 patch transdermal DAILY Qty: 28 1RF Senna Plus 8.6-50 mg capsule 2 tab-cap PO BEDTIME Qty: 60 12RF nicotine 21 mg/24 hr patch 24 hour 1 patch transdermal DAILY Qty: 28 0RF trazodone 50 mg tablet 50 mg PO BEDTIME PRN (Reason: sleep) Qty: 90 1RF triamcinolone acetonide 0.5 % cream 1 appl topical BID Qty: 30 0RF albuterol sulfate 2.5 mg /3 mL (0.083 %) solution for nebulization 2.5 mg inhalation Q4-6H PRN (Reason: shortness of breath or wheezing) Qty: 180 0RF Biktarvy 50-200-25 mg tablet 1 tab PO DAILY 30 Days Qty: 30 5RF cholecalciferol (vitamin D3) 50 mcg (2,000 unit) capsule 50 mcg PO DAILY 90 Days Qty: 90 3RF ProAir RespiClick 90 mcg/actuation aerosol powdr breath activated 2 inh inhalation QID Qty: 1 0RF polyethylene glycol 3350 [Miralax] 17 gram/dose powder 238 g PO ONCE Qty: 238 0RF Rx Instructions: per colonoscopy prep instructions bisacodyl 5 mg tablet,delayed release (DR/EC) 5 mg PO ONCE 1 Days Qty: 3 0RF Rx Instructions: per colonoscopy instructions famotidine 20 mg tablet 20 mg PO DAILY PRN (Reason: GERD) Qty: 90 1RF Rx Instructions: Take one tablet daily as needed for acid reflux Interventions: ED Discharge Assessment Last Done: 03/24/25 20:03 Discharge Date/Time: 03/24/25 20:04 Print Language: Faroese
[2025-03-24 17:31] VITALS: BP 133/78; PULSE 84; RESP 16; TEMP 36.8; O2SAT 96; BMI 32.0
[2025-03-24 18:04] LABS: MANUAL DIFF FLAG NO
[2025-03-24 18:07] LABS: Basophils Absolute Auto 0.1 X10*3/uL (0.0-0.2); Basophils Percent Auto 0.5 % (0-2); Eosinophils Absolute Auto 0.2 X10*3/uL (0.0-0.4); Hematocrit 41.2 % (37.0-47.0); Hemoglobin 14.4 g/dl (12.0-16.0); Imm Gran Abs Auto 0.04 X10*3/uL (0.00-0.03); Imm Gran Pct Auto 0.4 % (0.0-0.4); Lymphocytes Absolute Auto 2.8 X10*3/uL (1.2-4.9); Lymphocytes Percent Auto 29.4 % (20-40); Mean Corpuscular Hemoglobin 30.7 pg (27.0-33.0); Mean Corpuscular Volume 87.8 fL (80.0-98.0); Mean Platelet Volume 9.6 fL (9.4-12.3); Monocytes Absolute Auto 0.7 X10*3/uL (0.1-1.2); Monocytes Percent Auto 6.9 % (2-11); Neutrophils Absolute Auto 5.9 x10*3/uL (2.0-8.3); Neutrophils Percent Auto 60.8 % (45-73); Platelet Count 343 X10*3/uL (160-400); Red Blood Count 4.69 X10*6/uL (4.20-5.50); Red Cell Distribution Width 12.7 % (11.0-16.0); White Blood Count 9.7 X10*3/uL (4.8-10.8)
[2025-03-24 18:14] VITALS: BP 144/96; PULSE 87; RESP 18; O2SAT 100
[2025-03-24 18:20] LABS: Alanine Aminotransferase 33 U/L (0-31); Albumin Level 4.4 g/dL (3.5-5.0); Alkaline Phosphatase 51 U/L (39-117); Anion Gap 13 (12-20); Aspartate Amino Transferase 26 U/L (5-31); Bilirubin Total 0.2 mg/dL (0.0-1.0); Blood Urea Nitrogen 15 mg/dL (9-16); Calcium 9.7 mg/dL (8.4-10.2); Carbon Dioxide 25 mmol/L (22-29); Chloride 107 mmol/L (96-108); Creatinine Clr Calc Pharmacy 103.4; Estimated Glomerular Filt Rate > 60; Glucose Random 98 mg/dL (60-115); Potassium 3.9 mmol/L (3.3-5.1); Sodium 141 mmol/L (135-145); Total Protein 7.7 g/dL (6.5-8.0)
[2025-03-24 18:41] LABS: Influenza A PCR NEGATIVE (Negative); Influenza B PCR NEGATIVE (Negative); Resp Syncy Virus RNA Qual PCR NEGATIVE (Negative); SARS COV2 PCR INHOUSE NEGATIVE (Negative)
[2025-03-24] MEDS: predniSONE 20 MG TABLET 40 MG PO (19:11)
--- NOTE | 2025-03-24 19:15 | PC.NURSE ---
Pt medicated per NOV and explained medication via hospital child nutrition assistant.
[2025-03-24] MEDS: Albuterol Sulfate 2.5 MG, Albuterol/Iprat 2.5/0.5MG 3 ML 3 ML INHALE (19:26)
[2025-03-24 19:28] VITALS: PULSE 82; RESP 18; O2SAT 96
--- NOTE | 2025-03-24 19:46 | ED_ITS ---
HPI - Asthma General Chief Complaint: Asthma Stated Complaint: Asthma Time Seen by Provider: 03/24/25 18:11 Source: patient Mode of arrival: ambulatory Limitations: no limitations History of Present Illness ED Provider: HPI Narrative: Patient's history of asthma apparently smoked 1 week ago and since then been having cough wheezing was using nebulizing treatment and inhaler which she ran off yesterday does have a dry cough no fever no chills no chest pain no leg swelling Related Data Previous Rx's ?Medication ?Instructions ?Recorded albuterol sulfate 2.5 mg/3 mL 2.5 mg (3 mL) inhalation Q4-6H PRN 01/09/24 (0.083 %) solution for nebulization shortness of breat h or wheezing #180 mL triamcinolone acetonide 0.5 % 1 appl topical BID #30 g emiliano 01/09/24 topical cream nebulizers (Aeroneb Go Nebulizer) #1 ea 01/16/24 albuterol sulfate 90 mcg/actuation 2 inh inhalation QI D #1 ea 10/23/24 breath activated powder inhaler (ProAir RespiClick) phentermine 37.5 mg capsule 37.5 mg PO DAILY #30 caps 12/24/24 bictegravir 50 mg-emtricitabine 1 tab PO DAILY 30 days #30 tabs 01/08/25 200 mg-tenofovir alafenam 25 mg tablet (Biktarvy) cholecalciferol (vitamin D3) 50 50 mcg PO DAILY 90 day s #90 caps 01/11/25 mcg (2,000 unit) capsule bisacodyl 5 mg tablet,delayed 5 mg PO ONCE 1 day #3 ta bs 01/15/25 release famotidine 20 mg tablet 20 mg PO DAILY PRN GERD #90 tabs 01/15/25 polyethylene glycol 3350 17 238 g PO ONCE #238 grams 0 01/15/25 gram/dose oral powder (Miralax) nicotine 14 mg/24 hr daily 1 patch transdermal DAILY # 28 ea 03/09/25 transdermal patch sennosides 8.6 mg-docusate sodium 2 tab-cap (2 x 8.6-5 0 mg) PO 03/11/25 50 mg capsule (Senna Plus) BEDTIME #60 caps nicotine 21 mg/24 hr daily 1 patch transdermal DAILY # 28 ea 06/16/25 transdermal patch trazodone 50 mg tablet 50 mg PO BEDTIME PRN sleep # 90 tabs 03/18/25 albuterol sulfate 2.5 mg/3 mL 2.5 mg (3 mL) inhalation Q4-6H PRN 03/24/25 (0.083 %) solution for nebulization shortness of breat h or wheezing #90 mL prednisone 20 mg tablet 40 mg (2 x 20 mg) PO DAILY # 10 tabs 03/24/25 Allergies Allergy/AdvReac Type Severity Reaction Status Date / Time No Known Allergies Allergy Verified 03/24/25 17:32 Review of Systems 2 Review of Systems: Yes all other systems are reviewed and are negative [facility] Past Medical History Medical History Bone disorder Colon cancer screening HIV (human immunodeficiency virus infection) Obesity (BMI 30-39.9) GENNA I (cervical intraepithelial neoplasia I) Overweight (BMI 25.0-29.9) Tobacco abuse Insomnia GERD (gastroesophageal reflux disease) Anxiety and depression Atypical ductal hyperplasia, breast Asthma Migraine Surgical History Hx of colonoscopy History of laparoscopic cholecystectomy History of breast lump/mass excision History of breast surgery H/O LEEP History of tubal ligation History of umbilical hernia repair HIV (human immunodeficiency virus infection) Family History Family History Father No problems noted. Mother No problems noted. Paternal Grandmother CVD (cardiovascular disease) Maternal Uncle Mouth cancer Maternal Grandmother Myocardial infarction CVD (cardiovascular disease) Gastric cancer Social History Social History Housing: Apartment Alcohol intake: current Alcohol intake frequency: holidays/special occasions only Alcohol type: beer, wine and hard liquor Comment: 2 x a month 6 drinks. 12/2024-QO week 7-8 beers Patient Tobacco Use Status: Current everyday Tobacco user Tobacco use type: Cigarette Cigarette Packs Per Day: 0.5 Cigarettes Per Day: 10 Years Smoked: since 16 years old , Smoked in Last 30 Days: Yes e-Cigarette/Vaping Use: Never Used Second Hand Smoke Exposure: Yes Advance Directives: No Advance Directives Information Provided: Yes service: No Current occupational status: unemployed Sexual orientation: Straight/Heterosexual Gender identity: Female Cognitive needs: No Hearing needs: No Vision needs: Yes Physical Exam 2 Vital Signs: Vital Signs: Last Vital Signs Temp 98.3 F 03/24/25 17:31 Pulse 82 03/24/25 19:28 Resp 18 03/24/25 19:28 BP 144/96 H 03/24/25 18:14 Pulse Ox 100 03/24/25 18:14 O2 Del Method Room Air 03/24/25 18:14 BMI result Body Mass Index 32.0 Appearance: Alert. Oriented X3. No acute distress. Eyes: PERRLA, No Nystagmus ENT: Pharynx normal. Oral Mucosa moist Neck: Normal inspection. Neck supple. CVS: Normal heart rate and rhythm. Pulses normal. Respiratory: No respiratory distress. Equal air entry bilateral, bilateral wheezing and rhonchi no rales Abdomen: Soft and nontender. Bowel sounds are present, no mass palpable, no CVA tenderness Skin: Skin warm and dry. Normal skin color. Normal skin turgor. Extremities: No lower extremity edema. No calf tenderness Neuro: Oriented X 3. No motor deficit. Medications Administered Discontinued Medications Generic Name Dose Route Start Last Admin Trade Name Freq PRN Reason Stop Dose Admin Albuterol Sulfate 2.5 mg/ 0 mg 03/24/25 18:38 03/24/25 19:26 Albuterol/Ipratropium 3 ml INHALE 03/24/25 18:39 1 dose ONCE ONE Administration Prednisone 40 mg 03/24/25 18:38 03/24/25 19:11 Prednisone 20 Mg Tablet PO 03/24/25 18:39 40 mg ONCE ONE Administration Medical Decision Making Medical Decision Making [facility] Narrative: Patient's asthma comes here for wheezing after smoking cigarettes about 7 days ago ran out of her nebulizing medicine on arrival patient is saturating 96% at room air chest x-ray negative labs are stable patient has improved after nebulizing treatment and prednisone will discharge patient home on same Differential Diagnosis Differential Diagnoses: The differential diagnosis associated with the presentation includes Asthma/bronchitis/pneumonia/ Lab Data [facility] Lab Attestation statement: I reviewed the patient's lab results. 03/24/25 17:59 03/24/25 17:59 Labs: Lab Results 03/24/25 Range/Units 17:59 WBC 9.7 (4.8-10.8) X10*3/uL RBC 4.69 (4.20-5.50) X10*6/uL Hgb 14.4 (12.0-16.0) g/dl Hct 41.2 (37.0-47.0) % MCV 87.8 (80.0-98.0) fL MCH 30.7 (27.0-33.0) pg MCHC 35.0 (31.0-35.0) g/dl RDW 12.7 (11.0-16.0) % Plt Count 343 (160-400) X10*3/uL MPV 9.6 (9.4-12.3) fL Immature Gran % (Auto) 0.4 (0.0-0.4) % Neut % (Auto) 60.8 (45-73) % Lymph % (Auto) 29.4 (20-40) % [place] % (Auto) 6.9 (2-11) % Eos % (Auto) 2.0 (0-4) % Baso % (Auto) 0.5 (0-2) % Lymph # (Auto) 2.8 (1.2-4.9) X10*3/uL [place] # (Auto) 0.7 (0.1-1.2) X10*3/uL Eos # (Auto) 0.2 (0.0-0.4) X10*3/uL Baso # (Auto) 0.1 (0.0-0.2) X10*3/uL Abs Immat Gran (auto) 0.04 H (0.00-0.03) X10*3/uL Absolute Neuts (auto) 5.9 (2.0-8.3) x10*3/uL Absolute Nucleated RBC 0.000 (0.0-0.012) X10*3/uL Nucleated RBC % (auto) 0.0 (0.0-0.2) /100WBC Sodium 141 (135-145) mmol/L Potassium 3.9 (3.3-5.1) mmol/L Chloride 107 (96-108) mmol/L Carbon Dioxide 25 (22-29) mmol/L Anion Gap 13 (12-20) BUN 15 (9-16) mg/dL Creatinine 0.67 (0.5-1.4) mg/dL Estim Creat Clear Calc 103.4 Estimated GFR > 60 Random Glucose 98 (60-115) mg/dL Calcium 9.7 (8.4-10.2) mg/dL Total Bilirubin 0.2 (0.0-1.0) mg/dL AST 26 (5-31) U/L ALT 33 H (0-31) U/L Alkaline Phosphatase 51 (39-117) U/L Total Protein 7.7 (6.5-8.0) g/dL Albumin 4.4 (3.5-5.0) g/dL Influenza Type A (PCR) NEGATIVE (Negative) Influenza Type B (PCR) NEGATIVE (Negative) RSV RNA Qual (PCR) NEGATIVE (Negative) SARS-CoV-2 RNA (RT-PCR) NEGATIVE (Negative) Independent Interpretation I performed an independent interpretation of an: Plain X-Ray Interpretation: No acute Discharge Plan Discharge Clinical Impression: Asthma attack Patient Disposition: Home, Self-Care Instructions: Asthma (ED) Additional Instructions: Your inhaler and nebulizing treatment every 4-6 hours as needed Prednisone as advised Stop smoking Follow with your PCP if not better Prescriptions: New albuterol sulfate 2.5 mg /3 mL (0.083 %) solution for nebulization 2.5 mg inhalation Q4-6H PRN (Reason: shortness of breath or wheezing) Qty: 90 0RF prednisone 20 mg tablet 40 mg PO DAILY Qty: 10 0RF No Action (DME) Aeroneb Go Nebulizer Misc See Rx Instructions .ROUTE .MEDSUPPLY Qty: 1 0RF Rx Instructions: As directed phentermine 37.5 mg capsule 37.5 mg PO DAILY Qty: 30 0RF Rx Instructions: must administer 30 minutes before or 1-2 hours after breakfast nicotine 14 mg/24 hr patch 24 hour 1 patch transdermal DAILY Qty: 28 1RF Senna Plus 8.6-50 mg capsule 2 tab-cap PO BEDTIME Qty: 60 12RF nicotine 21 mg/24 hr patch 24 hour 1 patch transdermal DAILY Qty: 28 0RF trazodone 50 mg tablet 50 mg PO BEDTIME PRN (Reason: sleep) Qty: 90 1RF triamcinolone acetonide 0.5 % cream 1 appl topical BID Qty: 30 0RF albuterol sulfate 2.5 mg /3 mL (0.083 %) solution for nebulization 2.5 mg inhalation Q4-6H PRN (Reason: shortness of breath or wheezing) Qty: 180 0RF Biktarvy 50-200-25 mg tablet 1 tab PO DAILY 30 Days Qty: 30 5RF cholecalciferol (vitamin D3) 50 mcg (2,000 unit) capsule 50 mcg PO DAILY 90 Days Qty: 90 3RF ProAir RespiClick 90 mcg/actuation aerosol powdr breath activated 2 inh inhalation QID Qty: 1 0RF polyethylene glycol 3350 [Miralax] 17 gram/dose powder 238 g PO ONCE Qty: 238 0RF Rx Instructions: per colonoscopy prep instructions bisacodyl 5 mg tablet,delayed release (DR/EC) 5 mg PO ONCE 1 Days Qty: 3 0RF Rx Instructions: per colonoscopy instructions famotidine 20 mg tablet 20 mg PO DAILY PRN (Reason: GERD) Qty: 90 1RF Rx Instructions: Take one tablet daily as needed for acid reflux Print Language: Luxembourger
[2025-03-24 19:56] VITALS: BP 125/82; PULSE 96; RESP 18; O2SAT 96
[2025-03-24 20:03] VITALS: BP 125/82; PULSE 96; RESP 18; TEMP 36.8; O2SAT 96
== END 2025-03-24 20:04 | disposition home or self-care (01) ==
PROVIDERS: Emergency Provider Internal Medicine; PCP Internal Medicine
DX: J45.901 Unspecified asthma with (acute) exacerbation (principal); R05.9 Cough, unspecified; R06.02 Shortness of breath; Z03.818 Encounter for observation for suspected exposure to other biological agents ruled out
CPT/HCPCS: 0241U; 71046; 80053; 85025; 94640; 99284; 99285

== ENCOUNTER → 2025-03-24 17:32 | Outpatient (BNV) | payer OTHER, SELFPAY | PROVIDERS: Emergency Provider Internal Medicine; PCP Internal Medicine; Visit Provider Radiology Diagnostic Radiology | DX: R06.02 Shortness of breath (principal) | CPT/HCPCS: 71046 ==

== ENCOUNTER 2025-03-25 13:15 | Outpatient (REF) | payer OTHER, SELFPAY ==
--- NOTE | ~2025-03-25 | MM_ITS ---
EXAMINATION: DXA BONE DENSITY AXIAL HISTORY: M89.9 - Disorder of bone, unspecified TECHNIQUE: Interana Dual energy absorptiometry (DEXA) of the lumbar spine, total left hip, and femoral neck was performed. COMPARISON: Comparison is made with the prior examination dated 12/18/2016. FINDINGS: The bone mineral density of the lumbar spine is 0.977, corresponding to a T-score of -1.3, and a Z-score of -1.4. This is indicative of osteopenia. This represents a BMD change of -8.4% compared to the prior exam. This is statistically significant. The bone mineral density of the left total hip is 0.947, corresponding to a T-score of -0.5, and a Z-score of -0.4. This is indicative of normal bone mineral density. This represents a BMD change of -4.8% compared to the prior exam. This is statistically significant. The bone mineral density of the left femoral neck is 0.913, corresponding to a T-score of -0.9, and a Z-score of -0.5. This is indicative of normal bone mineral density. This represents a BMD change of -5.2% compared to the prior exam. FRACTURE RISK: The FRAX index suggests a ten year probability of major osteoporotic fracture of 2.4%, and of hip fracture 0.2%. MM/XR DEXA axial skeleton IMPRESSION: Based on bone mineral density, and according to World Health Organization (WHO) criteria, the diagnosis is consistent with osteopenia. All bone density values are in grams per centimeter squared (g/cm2). Statistically, 68% of repeat scans fall within 1 SD (+/- 0.010 g/cm2 for AP spine L1-L4) and 1 SD (+/- 0.012 g/cm2 for femur total) FRAX is a trademark of the [employer]'s [place] for Metabolic Bone Disease, a World Health Organization (WHO) Collaborating Center. Electronically signed by: Anil Manriquez MD 03/25/2025 02:13 PM EDT
--- NOTE | ~2025-03-25 | MM_ITS ---
EXAMINATION: MM SCREENING DIGITAL BREAST TOMOSYNTHESIS, BILATERAL CLINICAL INFORMATION: Screening. Asymptomatic. COMPARISON: Mammography: Comparison is made with available priors TECHNIQUE: Digital breast mammography with tomosynthesis is performed in both the craniocaudal and mediolateral oblique views along with computer-aided detection (CAD). FINDINGS: There are scattered areas of fibroglandular density (ACR BI-RADS breast composition Category b). Left marker clip. There are no significant masses, abnormal calcifications, or other abnormalities. MM/MM tomosynthesis screening BI IMPRESSION: No mammographic evidence of malignancy. ASSESSMENT: BI-RADS BI-RADS 2 - Benign Findings RECOMMENDATION: Routine annual mammography screening. 1 year F/U This examination should not preclude the clinical evaluation of a suspicious palpable abnormality. This patient's information was entered into a reminder system with a target due date for their next mammogram. Electronically signed by: Brandie Crain DO 04/10/2025 04:45 PM EDT
== END 2025-03-25 13:16 | disposition home or self-care (01) ==
LOC: HO.MAMMO 13:15
PROVIDERS: PCP Internal Medicine; Visit Provider Internal Medicine
DX: Z12.31 Encounter for screening mammogram for malignant neoplasm of breast (principal); Z13.820 Encounter for screening for osteoporosis; M89.9 Disorder of bone, unspecified; M85.88 Other specified disorders of bone density and structure, other site
CPT/HCPCS: 77063; 77067; 77080

== ENCOUNTER → 2025-03-25 13:30 | Outpatient (BNV) | payer OTHER, SELFPAY | PROVIDERS: PCP Internal Medicine; Visit Provider Radiology Diagnostic Radiology | DX: E28.39 Other primary ovarian failure (principal) | CPT/HCPCS: 77080 ==

== ENCOUNTER 2025-07-02 13:35 | Outpatient (REF) | payer OTHER, SELFPAY ==
[2025-07-05 22:38] LABS: HIV RNA PCR Qn Copies <20 DETECTED copies/mL (NOT DETECTED); HIV RNA PCR Qn Log Copies <1.30 DETECTED (NOT DETECTED)
[2025-07-07 11:42] LABS: Absolute CD3 Count 1406 cells/uL (840-3060); Absolute CD8 Count 797 cells/uL (180-1170); Percent CD3 Cells 59 % (57-85); Percent CD8 Cells 33 % (12-42)
== END 2025-07-02 13:36 | disposition home or self-care (01) ==
LOC: HO.LAB 13:35
PROVIDERS: PCP Internal Medicine; Visit Provider Internal Medicine
DX: Z21 Asymptomatic human immunodeficiency virus [HIV] infection status (principal); K63.5 Polyp of colon
CPT/HCPCS: 36415; 86359; 86360; 87536

== ENCOUNTER 2025-07-09 11:42 | Outpatient (AMB) | payer OTHER, SELFPAY ==
[2025-07-09 13:23] VITALS: BMI 33.1
--- NOTE | 2025-07-09 13:23 | A.OFFVIS_ITS ---
Vital Signs 07/09/25 13:23 Height 5 ft 4 in Weight 193 lb BMI 33.1 Intake Visit Reasons: 6 month hiv lab Facilities Maintenance Technician Required: Yes Facilities Maintenance Technician Services: Facilities Maintenance Technician Present Facilities Maintenance Technician Name: Mary Grimes CMA Information Interpreted: clinical only Police Crime Scene Technician: Police Crime Scene Technician Present Allergies No Known Allergies Allergy (Verified 07/09/25 13:23) HPI Comments Details: History of Present Illness The patient is a 54-year-old female presenting for her six-month follow-up HIV care. She is currently well-controlled on Biktarvy, with an undetectable viral load as of July 02 and a CD4 count of 649, which reflects a stable condition. She experiences no difficulty adhering to her medication regimen and tolerates it without complications. Aside from her management of HIV, the patient is proactive in addressing routine health maintenance. She is scheduled for gynecological and various cancer screenings in upcoming months. Previously detected colonic polyps warrant follow-up, with an appointment pending for a complete evaluation. The patient acknowledges smoking as a persistent issue since adolescence but is contemplating smoking cessation, starting with a tapering strategy, and expresses interest in lung cancer screening, which is being addressed today with a CT chest scan. The patient's social circumstances are stable, with no reports of financial distress or dietary inadequacy. Alcohol consumption is minimal and well within social drinking norms. Screening for depression yielded a moderate score, but she expresses confidence in self-management without external mental health sup port. Vaccination history is complete, with plans also underway to initiate dental and vision care engagements. Review of Systems - General: Denies any weight loss or changes in appetite. - Respiratory: Reports smoking; interested in screening for lung health. - Gastrointestinal: Mention of previous colonic polyps. - Neuropsychiatric: Reports mild depression (PHQ-9 score 5/9), denies suicidal ideation. - Musculoskeletal: Plans to have a bone density test. - Ophthalmic: Intends to schedule routine eye care. Physical Exam - General- Patient is pleasant, vital signs stable. - HEENT- Oropharynx clear. - Lymphatic- No adenopathy noted. - Respiratory- Lungs clear to auscultation. - Cardiovascular- Heart rate and rhythm regular. - Abdomen- Abdomen soft, non-tender. - Musculoskeletal- Extremities non-tender. Results - Labs: HIV viral load undetectable as of 07/02, CD4 count 649. - Tests: PHQ-9 score for depression: 5/9. Plan Patient was informed and verbally consented to the use of an ambient scribe for clinic note documentation during this visit. 1. Human immunodeficiency virus [HIV] disease B20 HCC 1 Continue Biktarvy treatment with stable viral load management. Scheduling follow-up in six months with additional lab assessments during the next visit. 2. Nicotine dependence, unspecified, uncomplicated F17.200 Address smoking with cessation support, ordered screening CT of the chest for respiratory health evaluation. 3. Depression, unspecified F32.A Monitor mental health status with focus on patient self-assessment, no immediate psychiatric intervention indicated. Discussion Notes I discussed the patient's current undetectable HIV status and the importance of maintaining adherence to her Biktarvy regimen. We reviewed her smoking history and the benefits of cessation, deciding to initiate a lung cancer screening with the CT scan. The discussion also included the significance of regular screenings and vaccinations, emphasizing comprehensive healthcare maintenance strategies. I addressed her mild depression, noting that she feels confident in self-monitoring without therapist involvement currently. Follow-up in six months was agreed upon, with continuation of her current treatment plan. Medical Decision Making In managing this patient, the primary focus is on her stable HIV infection, with continued Biktarvy therapy effectively maintaining viral suppression and CD4 count elevation. Attention will also be on supporting her aim to reduce tobacco use, monitoring for potential respiratory morbidity with an upcoming CT scan. Persistent mild depression warrants awareness, although immediate intervention is not deemed necessary given her self-assessment and lack of alarming symptoms. Future evaluations will contribute to modified management strategies as required, maintaining a vigilant approach to her holistic health needs. Patient Instructions - Keep taking Biktarvy as prescribed. - Follow the schedule for all recommended screenings, including chest CT today. - Plan to quit smoking gradually; note that nicotine replacements are not advised based on past experiences. - Stay attentive to mental wellness and report any worsening symptoms. - Maintain current vaccination status, and book appointments with dental and vision services. - Come back for the next follow-up in six months. [facility] Medical History Bone disorder Colon cancer screening HIV (human immunodeficiency virus infection) Obesity (BMI 30-39.9) GENNA I (cervical intraepithelial neoplasia I) Overweight (BMI 25.0-29.9) Tobacco abuse Insomnia GERD (gastroesophageal reflux disease) Anxiety and depression Atypical ductal hyperplasia, breast Asthma Migraine Surgical History Hx of colonoscopy History of laparoscopic cholecystectomy History of breast lump/mass excision History of breast surgery H/O LEEP History of tubal ligation History of umbilical hernia repair HIV (human immunodeficiency virus infection) Family History Father No problems noted. Mother No problems noted. Paternal Grandmother CVD (cardiovascular disease) Maternal Uncle Mouth cancer Maternal Grandmother Myocardial infarction CVD (cardiovascular disease) Gastric cancer Social History Housing: Apartment Alcohol intake: current Alcohol intake frequency: holidays/special occasions only Alcohol type: beer, wine and hard liquor Comment: 2 x a month 6 drinks. 12/2024-QO week 7-8 beers Patient Tobacco Use Status: Current everyday Tobacco user Tobacco use type: Cigarette Cigarette Packs Per Day: 0.5 Cigarettes Per Day: 10 Years Smoked: since 16 years old , e-Cigarette/Vaping Use: Never Used Second Hand Smoke Exposure: Yes service: No Current occupational status: unemployed Sexual orientation: Straight/Heterosexual Gender identity: Female Cognitive needs: No Hearing needs: No Vision needs: Yes Female Reproductive History Menstrual Age of Menarche: 13 Physical Exam Vital Signs: BMI result Body Mass Index 33.1 Assessment & Plan Assessment & Plan (1) HIV (human immunodeficiency virus infection): Code(s): B20 - Human immunodeficiency virus [HIV] disease Category: Surgical Qualifiers: HIV symptom status: asymptomatic, with no history of HIV-related illness Qualified Code(s): Z21 - Asymptomatic human immunodeficiency virus [HIV] infection status Plan: as above Orders: Orders HIV-1 RNA QN PCR Expanded 6 Months Z21 - Asymptomatic human immunodeficiency virus [HIV] infection status Lymphocyte Subset Panel 3 6 Months Z21 - Asymptomatic human immunodeficiency virus [HIV] infection status CT lung screening Today Z21 - Asymptomatic human immunodeficiency virus [HIV] infection status Medications: Refilled awulevjji-pmufmdqg-ekpsazv ala 50-200-25 mg (Biktarvy) 1 tab PO DAILY 30 tabs 5RF 30 days Coding Level of Care Code Est Pt Level 4 (53782) Diagnoses Asymptomatic HIV infection, with no history of HIV-related illness Z21 HIV symptom status: asymptomatic, with no history of HIV-related illness Additional Codes PHQ-9 - 01817 - PHQ-9 Billing: Yes ([id number]) PHQ-9 Over the last 2 weeks, how often have you been bothered by any of the following problems? 1. Little interest or pleasure in doing things: not at all 2. Feeling down, depressed, or hopeless: not at all 3. Trouble falling or staying asleep, or sleeping too much: more than half the days 4. Feeling tired or having little energy: several days 5. Poor appetite or overeating: several days 6. Feeling bad about yourself - or that you are a failure or have let yourself or your family down: several days 7. Trouble concentrating on things, such as reading the newspaper or watching television: not at all 8. Moving or speaking so slowly that other people could have noticed. Or the opposite - being so fidgety or restless that you have been moving around a lot more than usual: not at all 9. Thoughts that you would be better off or of hurting yourself in some way: not at all Total score: 5 Depression Screening Interpretation: Negative Depression Screening Done: Yes [id number] - PHQ-9 Billing: Yes Source: Developed by Drs. Anil Witt, Penelope Crystal, Hernán Melgar and colleagues, with an educational elana from [employer].
== END 2025-07-09 12:15 | disposition home or self-care (01) ==
LOC: HO.HID 11:42
PROVIDERS: PCP Internal Medicine; Visit Provider Internal Medicine
DX: Z21 Asymptomatic human immunodeficiency virus [HIV] infection status (principal)
CPT/HCPCS: 99214

== ENCOUNTER → 2025-07-09 11:42 | Outpatient (BNVA) | payer OTHER, SELFPAY | PROVIDERS: PCP Internal Medicine; Visit Provider Internal Medicine | DX: Z21 Asymptomatic human immunodeficiency virus [HIV] infection status (principal); Z13.31 Encounter for screening for depression | CPT/HCPCS: 96127; 99212 ==

== ENCOUNTER 2025-07-16 14:24 | Outpatient (REF) | payer OTHER, SELFPAY ==
[2025-07-16 15:20] LABS: Appearance Urine Cloudy; Glucose Urine UA Negative (Negative); PH 6.5 (5.0-9.0); Specific Gravity - Urine 1.020 (1.005-1.025); UMIC TRIGGER UACC YES
[2025-07-16 16:00] LABS: UACC Culture Trigger YES
== END 2025-07-16 14:25 | disposition home or self-care (01) ==
LOC: HO.LAB 14:24
PROVIDERS: PCP Internal Medicine; Visit Provider Internal Medicine
DX: R39.9 Unspecified symptoms and signs involving the genitourinary system (principal)
CPT/HCPCS: 81001; 81003; 87086; 87088; 87186

== ENCOUNTER 2025-09-10 13:27 | Outpatient (AMB) | payer OTHER, SELFPAY ==
--- NOTE | 2025-09-10 13:40 | MHC.PC.OV ---
Vital Signs 09/10/25 13:41 Height 5 ft 4 in Weight 193 lb 2 oz BMI 33.1 BP 118/68 Blood Pressure Location Lt brachial Position Sitting Temp 97.3 F Temp Source Temporal Artery Scan Intake Visit Reasons: smoker Intake Note: Patient is here to follow up on Smoker. Black Top Paver Operator Required: No Printer'S Devil: Not Required per policy Accompanied by: Self / Same As Patient Allergies No Known Allergies Allergy (Verified 09/10/25 14:05) Medication List - Last Reconciled 09/10/25 by Audelia Soto PA-C albuterol sulfate 2.5 mg (3 mL) inhalation Q4-6H PRN albuterol sulfate 90 mcg/actuation (ProAir RespiClick) 2 inhalations inhalation QID yhtdjcxht-ifjtoixu-sqxbdzp ala 50-200-25 mg (Biktarvy) 1 tab PO DAILY 30 days cholecalciferol (vitamin D3) 50 mcg PO DAILY 90 days famotidine 20 mg PO DAILY PRN nebulizers (Aeroneb Go Nebulizer) As directed polyethylene glycol 3350 (Miralax) 238 grams PO ONCE sennosides-docusate sodium 8.6-50 mg (Senna Plus) 2 tab-caps (2 x 8.6-50 mg) PO BEDTIME trazodone 50 mg PO BEDTIME PRN Tobacco use date assessed: 09/10/25 Dental Screening Dental Screen Date: 10/23/24 HPI smoker HPI Details 55 year old female with past medical history of HIV, GERD, asthma, alcohol use, impaired glucose tolerance, constipation, and nicotine use last seen 12/2024 coming in for follow up. translator interpreter Umm [id number] was used for the duration of this visit. Presenting for a follow-up visit. The patient reports a recurrent skin issue on her hands that comes and goes. She has previously used triamcinolone, but found that a cream in a red bottle prescribed for her son was more effective. The patient also reports generalized pruritus all over her body, which occurs all the time. The patient inquired about injections for weight loss, noting her BMI qualifies her for treatment. A previous attempt to get this medication prescribed by Dr. Stahl in September was denied by her insurance. She has a family history of thyroid cancer, as her sister had her thyroid removed due to two cancerous nodules and was on the verge of Graves' disease but non-medullary thyroid cancer. The patient is a current smoker and has previously tried to quit using patches for about a week before resuming smoking. [facility] Medical History Nicotine dependence, cigarettes, uncomplicated Osteopenia Bone disorder Colon cancer screening HIV (human immunodeficiency virus infection) Obesity (BMI 30-39.9) GENNA I (cervical intraepithelial neoplasia I) Overweight (BMI 25.0-29.9) Insomnia GERD (gastroesophageal reflux disease) Anxiety and depression Atypical ductal hyperplasia, breast Asthma Migraine Surgical History Hx of colonoscopy History of laparoscopic cholecystectomy History of breast lump/mass excision History of breast surgery H/O LEEP History of tubal ligation History of umbilical hernia repair HIV (human immunodeficiency virus infection) Family History Father No problems noted. Mother No problems noted. Paternal Grandmother CVD (cardiovascular disease) Maternal Uncle Mouth cancer Maternal Grandmother Myocardial infarction CVD (cardiovascular disease) Gastric cancer Social History Housing: Apartment Alcohol intake: current Alcohol intake frequency: holidays/special occasions only Alcohol type: beer, wine and hard liquor Comment: 2 x a month 6 drinks. 12/2024-QO week 7-8 beers Patient Tobacco Use Status: Current everyday Tobacco user Tobacco use type: Cigarette Cigarette Packs Per Day: 0.5 Cigarettes Per Day: 10 Years Smoked: since 16 years old , Packs Per Year: 0 Packs per year/per ci.00 e-Cigarette/Vaping Use: Never Used Second Hand Smoke Exposure: Yes service: No Current occupational status: unemployed Sexual orientation: Straight/Heterosexual Gender identity: Female Cognitive needs: No Hearing needs: No Vision needs: Yes Female Reproductive History Menstrual Age of Menarche: 13 Questionnaire Thrive Questionnaire Date Thrive assessed: 10/23/24 ARIS-7 AMB Questionnaire ARIS-7 Date ARIS - 7 assessed: 10/23/24 Source: Developed by Drs. Anil Witt, Penelope Crystal, Hernán Melgar and colleagues, with an educational elana from [employer]. Review of Systems Const Denies body aches, Denies chills, Denies fever(s), Denies headache(s) and Denies poor appetite Eyes Reports no additional complaints ENT Denies dizziness and Denies headache(s) Card Denies chest pain, Denies lightheadedness and Denies dyspnea Resp Denies cough and Denies dyspnea GI Denies abdominal pain, Denies constipation and Denies diarrhea Musc Reports no additional complaints and Denies abnormal gait Neuro Denies abnormal gait, Denies dizziness and Denies headache(s) Psych Reports no additional complaints Physical exam (Primary Care) Vital Signs: Last Vital Signs Temp 97.3 F 09/10/25 13:41 BP 118/68 09/10/25 13:41 BMI result Body Mass Index 33.1 Tobacco/Smoking Status: Tobacco use Status Tobacco use date assessed 09/10/25 09/10/25 13:41 Patient Tobacco Use Status Current everyday Tobacco 09/10/25 13:41 Tobacco use type Cigarette 09/10/25 13:41 e-Cigarette/Vaping Use Never Used 09/10/25 13:41 Tobacco cessation counseling provided: Yes Items discussed: Nicotine replacement and Other Relapse Prevention: discussed dietary, exercise and/or lifestyle changes CPT code: Less than 3 minutes Thrive Assessment: Date of Thrive Assessment Date Thrive assessed 10/23/24 09/10/25 13:41 Const General: cooperative, healthy appearing, comfortable and no acute distress Orientation/consciousness: patient oriented x3 HENMT Head: Yes normocephalic Ears: hearing grossly normal bilaterally General nose exam: Normal external nose present Eyes General: appearance normal, both eyes and all related structures Conjunctivae: conjunctivae normal Neck Neck: Yes full ROM and Yes no lymphadenopathy Resp Effort & Inspection: normal respiratory effort Auscultation: clear to auscultation bilaterally, no crackles, no rales, no rhonchi and no wheezes Cardio Rate: regular rate Rhythm: regular rhythm Skin Other: eczema of rahul palms of the hands General skin exam: no rashes or lesions noted Neuro General: patient oriented x3 Gait exam (Neuro): Normal gait present Extrem General: Yes normal to inspection, Yes full ROM and No edema Psych Affect: normal affect Attitude: cooperative Insight: Good insight present (Psych) Judgement: Good judgement present (Psych) Coding Level of Care Code Est Pt Level 4 (92932) Diagnoses Eczema of hand L30.9 Impaired glucose tolerance R73.02 Obesity (BMI 30-39.9) E66.9 Gastroesophageal reflux disease without esophagitis K21.9 Esophagitis presence: without esophagitis Mild intermittent asthma without complication J45.20 Asthma complication type: uncomplicated Asthma persistence: intermittent Asthma severity: mild Nicotine dependence, cigarettes, uncomplicated F17.210 Assessment & Plan Assessment & Plan (1) Eczema of hand: Code(s): L30.9 - Dermatitis, unspecified Category: Medical Plan: A prescription for a steroid cream, previously helpful for the patient, will be sent to the pharmacy for her intermittent hand rash. She is advised not to use it for more than 14 consecutive days. Following clearance of the rash, she should use a moisturizer like Aquaphor or Eucerin daily to keep the skin hydrated. (2) Impaired glucose tolerance: Code(s): R73.02 - Impaired glucose tolerance (oral) Category: Medical Plan: Decrease the amount of carbohydrates such as pasta, bread, rice, and potatoes and limit the amount of sweets. Although fruits are generally healthy they should be eaten in moderation as they are still high in sugar. (3) Obesity (BMI 30-39.9): Code(s): E66.9 - Obesity, unspecified Category: Medical Plan: Healthy diet and regular exercise is encouraged. The patient is interested in weight loss injections and qualifies based on her BMI. She does have a family history of non-medullary thyroid cancer with her niece. She understands the risks and was advised on red flag symptoms and when to present for re-evaluation. A prior authorization will be submitted as insurance previously denied it. The patient was counseled to report any lump in the throat or painful swallowing immediately. A follow-up in three months is scheduled for a weight check, pending insurance approval of [employer]. (4) GERD (gastroesophageal reflux disease): Code(s): K21.9 - Gastro-esophageal reflux disease without esophagitis Category: Medical Qualifiers: Esophagitis presence: without esophagitis Qualified Code(s): K21.9 - Gastro-esophageal reflux disease without esophagitis Plan: Avoid trigger foods such as citrus, tomato products, soda, caffeine, spicy foods and other foods that may be irritating to your stomach. Avoid laying flat 3-4 hours after eating and elevate the head of the bed 30 degrees to prevent acid from moving into the esophagus. (5) Asthma: Code(s): J45.909 - Unspecified asthma, uncomplicated Category: Medical Qualifiers: Asthma complication type: uncomplicated Asthma persistence: intermittent Asthma severity: mild Qualified Code(s): J45.20 - Mild intermittent asthma, uncomplicated Plan: Asthma currently controlled on present medications. Continue on albuterol prn.? Avoid triggers such as allergies. (6) Nicotine dependence, cigarettes, uncomplicated: Code(s): F17.210 - Nicotine dependence, cigarettes, uncomplicated Category: Medical Plan: Smoking cigarettes and the use of tobacco can be harmful. We discussed the importance of stopping and options to aid in smoking cessation. Plan to trial Chantix at this time and follow up with PCP. Plan This note was constructed using voice recognition software. While every effort has been made to ensure accuracy and tier and detonator, still areas may have been included sometimes these areas may affect the content or meeting of the given symptoms. Total time spent caring for the patient today was 20 minutes. This includes time spent before the visit reviewing the chart, time spent during the visit, and time spent after the visit and documentation. Patient was informed and verbally consented to the use of an ambient scribe for clinic note documentation during this visit. Medications: New ammonium lactate 12% (AmLactin) 1 appl topical DAILY 225 grams 1RF L30.9 - Dermatitis, unspecified varenicline tartrate (Chantix Starting Month Box) PO PER PKG DIR 53 ea 0RF Refilled tirzepatide (weight loss) (Zepbound) for 4 weeks 2.5 mg (0.5 mL) subcut QWEEK 2 mL 2RF E66.9 - Obesity, unspecified albuterol sulfate 90 mcg/actuation (ProAir RespiClick) 2 inhalations inhalation QID 1 ea 0RF J45.20 - Mild intermittent asthma, uncomplicated triamcinolone acetonide 0.5% 1 appl topical BID 30 grams 0RF L30.9 - Dermatitis, unspecified
[2025-09-10 13:41] VITALS: BP 118/68; TEMP 36.3; BMI 33.1
== END 2025-09-10 14:31 | disposition home or self-care (01) ==
LOC: HO.HMCH 13:27
PROVIDERS: PCP Internal Medicine
DX: R73.02 Impaired glucose tolerance (oral) (principal); L30.9 Dermatitis, unspecified; E66.9 Obesity, unspecified; Z68.33 Body mass index [BMI] 33.0-33.9, adult; K21.9 Gastro-esophageal reflux disease without esophagitis; J45.20 Mild intermittent asthma, uncomplicated; F17.210 Nicotine dependence, cigarettes, uncomplicated

== ENCOUNTER → 2025-09-10 13:27 | Outpatient (BNVA) | payer OTHER, SELFPAY | PROVIDERS: PCP Internal Medicine | DX: R73.02 Impaired glucose tolerance (oral) (principal); K21.9 Gastro-esophageal reflux disease without esophagitis; E66.9 Obesity, unspecified; L30.9 Dermatitis, unspecified; J45.20 Mild intermittent asthma, uncomplicated; F17.210 Nicotine dependence, cigarettes, uncomplicated; Z68.33 Body mass index [BMI] 33.0-33.9, adult | CPT/HCPCS: 99212 ==